=== PATIENT | male | born 1970 | race Caucasian/White ===

== ENCOUNTER 2018-01-15 09:37 | Emergency (ER) | payer SELFPAY ==
[2018-01-15] MEDS ORDERED: KETOROLAC TROMETHAMINE 60 MG/2 ML VIAL ONE (09:53)
[2018-01-15] MEDS ORDERED: ACETAMINOPHEN EXTRA STRENGTH 500 MG TABLET ONE (09:54)
== END 2018-01-15 11:12 | disposition home or self-care (01) ==
LOC: EDH 09:37
DX: S52.502A Unspecified fracture of the lower end of left radius, initial encounter for closed fracture (principal); Z72.0 Tobacco use; W18.39XA Other fall on same level, initial encounter; Y93.89 Activity, other specified; Y92.89 Other specified places as the place of occurrence of the external cause; Y99.8 Other external cause status
CPT/HCPCS: 29125; 73110; 96372; 99284; J1885

== ENCOUNTER 2019-01-08 08:13 | Inpatient (IN) | payer OTHER ==
[~2019-01-08] VITALS: Ht 175.3 cm; Wt 95.2 kg
[2019-01-08] VITALS (19 sets, daily range): BP systolic 85–160; BP diastolic 47–99
[2019-01-08] MEDS ORDERED: ASPIRIN 325 MG TABLET ONE (08:26)
[2019-01-08] MEDS ORDERED: HEPARIN SODIUM 5000UNIT/ML 1ML VIAL ONE (08:38)
[2019-01-08] MEDS ORDERED: LIDOCAINE HCL 2% 20ML ONE (08:39)
[2019-01-08] MEDS ORDERED: ATROPINE SULFATE 0.1 MG/ML 10 ML SYG IVP ONE (08:39)
[2019-01-08] MEDS ORDERED: HEPARIN SODIUM 1000UNIT/ML 10ML VIAL ONE (08:39)
[2019-01-08] MEDS ORDERED: IOHEXOL 350 MG/ML 100ML INFUS..BTL IV ONE (08:39)
[2019-01-08] MEDS ORDERED: NITROGLYCERIN 5 MG/ML 10 ML VIAL IV ONE (08:39)
[2019-01-08 08:45] LABS: POTASSIUM 3.7 mmol/L (3.5-5.1)
[2019-01-08 08:51] LABS: BASOPHILS % (AUTO) 2.2 % (0.0-5.0); HEMATOCRIT 46.6 % (42-54); LYMPHOCYTES % (AUTO) 24.7 % (21.0-51.0); MEAN CORPUSCULAR HEMOGLOBIN 31.5 pg (27.0-33.0); MEAN CORPUSCULAR HGB CONC 33.6 g/dL (32.0-36.0); MEAN CORPUSCULAR VOLUME 93.7 fL (79-99); MONOCYTES % (AUTO) 4.9 % (3.0-13.0); NEUTROPHILS % (AUTO) 66.2 % (40.0-77.0); PLATELET COUNT (AUTO) 242 K/uL (130-400); RED BLOOD CELL COUNT(AUTO) 4.97 MIL/uL (4.50-6.20); RED CELL DISTRIBUTION WIDTH 14.9 % (11.0-15.5); WHITE BLOOD COUNT (AUTO) 14.2 K/uL (4.8-10.8)
[2019-01-08 08:53] LABS: INR 0.95 (0.85-1.15); PARTIAL THROMBOPLASTIN TIME 23.8 SEC (26.3-35.5)
[2019-01-08 08:57] LABS: ALBUMIN 3.5 g/dL (3.5-5.0); BILIRUBIN,TOTAL 0.5 mg/dL (0.2-1.0); TOTAL PROTEIN, SERUM 7.3 g/dL (6.0-8.3)
[2019-01-08] MEDS ORDERED: FENTANYL CITRATE PF 50 MCG/1 ML 2ML VIAL ONE (08:57)
[2019-01-08] MEDS ORDERED: MIDAZOLAM HCL 1 MG/ML 2ML VIAL ONE (08:57)
[2019-01-08] MEDS ORDERED: TICAGRELOR 90 MG TABLET ONE (08:57)
[2019-01-08] MEDS ORDERED: ACETAMINOPHEN 325 MG TAB PO PRN ×2 (09:15)
[2019-01-08] MEDS ORDERED: ONDANSETRON HCL 4 MG/2 ML VIAL IV PRN (09:15)
[2019-01-08] MEDS ORDERED: MORPHINE SULFATE 2 MG/ML 1ML SYG IV PRN (09:15)
[2019-01-08] MEDS ORDERED: NICARDIPINE HCL 25 MG/10 ML ML IV ONE (09:21)
--- NOTE | 2019-01-08 10:40 | NUR ---
RECEIVED PT FROM [facility]. PT AAO X3. NO NEURO DEFICIT NOTED. DENIES ANY CHEST PAIN OR SOB. MYNX DRESSING TO RIGHT GROIN INTACT. PEDAL PULSES STRONG AND PALPABLE. VS NOTED ON COMPUTER. PT SR 61 ON BEDSIDE MONITOR. PLAN OF CARE AND ACTIVITY LIMITATIONS DISCUSSED WITH PT. ALL QUESTIONS ANSWERED.
--- NOTE | 2019-01-08 12:00 | NUR ---
DR. DAVIS IN TO SEE PT. PLAN OF CARE DISCUSSED. NEW ORDERS RECEIVED AND NOTED.
--- NOTE | 2019-01-08 14:00 | NUR ---
OLEGARIO JACQUES NOTIFIED OF CONSULT
[2019-01-08] MEDS: SODIUM CHLORIDE 0.9% 1000ML 1,000 ML IV SCH (15:09)
--- NOTE | 2019-01-08 16:10 | NUR ---
PT COMPLAINING OF CHEST PAIN RADIATING TO BACK 1 OUT 10., PT STATES HE OCCASIONALLY FEELS LIKE HIS HEART SKIPS A BEAT AND SOB. [address]PLE[address] AND [address] SILVER NOTIFIED.
[2019-01-08 19:45] LABS: AMPHET/METH SCREEN,URINE NEGATIVE (NEGATIVE); BARBITURATE SCREEN, URINE NEGATIVE (NEGATIVE); BENZODIAZEPINES SCREEN,URINE POSITIVE (NEGATIVE); CANNABINOID SCREEN,URINE NEGATIVE (NEGATIVE); COCAINE SCREEN,URINE NEGATIVE (NEGATIVE); OPIATE SCREEN,URINE NEGATIVE (NEGATIVE); PHENCYCLIDINE SCREEN,URINE NEGATIVE (NEGATIVE)
[2019-01-08] MEDS ORDERED: PHARMACY COMMUNICATION MISC SCH (20:15)
[2019-01-08] MEDS: TICAGRELOR 90 MG TABLET PO SCH (20:36)
[2019-01-08] MEDS: ATORVASTATIN CALCIUM 40 MG TABLET PO SCH (20:36)
[2019-01-08] MEDS: METOPROLOL TARTRATE 25 MG TAB PO SCH (20:37)
[2019-01-08] MEDS: FAMOTIDINE 20MG TAB 20 MG TAB PO SCH (20:37)
[2019-01-09] VITALS (17 sets, daily range): BP systolic 98–152; BP diastolic 55–101
[2019-01-09] MEDS: SODIUM CHLORIDE 0.9% 1000ML 1,000 ML IV SCH ×2 (04:05→05:00)
[2019-01-09 04:11] LABS: BASOPHILS % (AUTO) 0.6 % (0.0-5.0); EOSINOPHILS % (AUTO) 0.6 % (0.0-8.0); HEMATOCRIT 41.5 % (42-54); LYMPHOCYTES % (AUTO) 11.1 % (21.0-51.0); MEAN CORPUSCULAR HEMOGLOBIN 32.1 pg (27.0-33.0); MEAN CORPUSCULAR VOLUME 94.2 fL (79-99); MONOCYTES % (AUTO) 3.6 % (3.0-13.0); NEUTROPHILS % (AUTO) 84.1 % (40.0-77.0); PLATELET COUNT (AUTO) 189 K/uL (130-400); RED BLOOD CELL COUNT(AUTO) 4.41 MIL/uL (4.50-6.20); RED CELL DISTRIBUTION WIDTH 15.1 % (11.0-15.5); WHITE BLOOD COUNT (AUTO) 16.4 K/uL (4.8-10.8)
[2019-01-09 04:28] LABS: POTASSIUM 4.2 mmol/L (3.5-5.1)
[2019-01-09] MEDS: TICAGRELOR 90 MG TABLET PO SCH ×2 (09:03→20:48)
[2019-01-09] MEDS: FAMOTIDINE 20MG TAB 20 MG TAB PO SCH ×2 (09:03→20:49)
[2019-01-09] MEDS: METOPROLOL TARTRATE 25 MG TAB PO SCH ×2 (09:04→20:50)
[2019-01-09] MEDS: ASPIRIN 81MG TAB.CHEW PO SCH (09:04)
--- NOTE | 2019-01-09 14:46 | NUR ---
DC PLAN VISITED WITH PATIENT. PATIENT LIVES WITH MOTHER. INDEPENDENT ABLE TO PERFORM ADL'S. ASKED IF HE WANTED INFO FOR LOW INCOME CLINICS SAID NO. HE WILL BE GOING TO [facility] SINCE ITS HIS HEART THAT IS GIVING HIM PROBLEMS. SAYS HE DOES NOT HAVE PROBLEMS GETTING HIS MEDICATIONS. NO SERVICES OR DME'S. FEELS SAFE TO RETURN HOME. Addendum: 01/09/19 at 1448 by RADHA BEAULIEU RN CM Amended: Links added.
--- NOTE | 2019-01-09 15:23 | NUR ---
ROUNDS DR. HANDY IN TO SEE PATIENT. UPDATED ON STATUS. PENDING FOR PATIENT TO BE EVALUATED BY CARDIOLOGY. PT HAS BEEN DOWNGRADED TO PCCU. [facility] NURSE MADE AWARE.
[2019-01-09] MEDS: ENOXAPARIN SODIUM 30 MG/0.3 ML SQ SCH (19:20)
[2019-01-09] MEDS: ATORVASTATIN CALCIUM 40 MG TABLET PO SCH (20:48)
[2019-01-09] MEDS: LISINOPRIL 2.5 MG TABLET PO SCH (20:49)
[2019-01-10] VITALS: BP 107/71
[2019-01-10 04:00] VITALS: BP 110/74
--- NOTE | 2019-01-10 05:00 | NUR ---
TRANSFER PATIENT TRANSFERRED FROM ROOM 218 TO 220. PATIENT AMBULATED TO ROOM WITH STANDBY ASSISTANCE. DENIES PAIN. AAOX3 BREATHING REGULAR AND UNLABORED ON ROOM AIR. REPORT GIVEN TO KIRILL FLOWER. CARE ENDORSED.
--- NOTE | 2019-01-10 05:10 | NUR ---
PT TRANSFERRED AT THIS TIME. AAOX3. PERRLA. NO DISTRESS NOTED. NO PAIN OR SOB AT THIS TIME. PT EAGER TO BE DISCHARGED HOME. HAD [facility] 01/08. SITE OPEN TO AIR. PT HAS CLEANSED AREA.
[2019-01-10] MEDS: SODIUM CHLORIDE 0.9% 1000ML 1,000 ML IV SCH (06:45)
[2019-01-10 07:00] VITALS: BP 110/72
[2019-01-10] MEDS: FAMOTIDINE 20MG TAB 20 MG TAB PO SCH (08:31)
[2019-01-10] MEDS: LISINOPRIL 2.5 MG TABLET PO SCH (08:31)
[2019-01-10] MEDS: TICAGRELOR 90 MG TABLET PO SCH (08:31)
[2019-01-10] MEDS: ENOXAPARIN SODIUM 30 MG/0.3 ML SQ SCH (08:32)
[2019-01-10] MEDS: METOPROLOL TARTRATE 25 MG TAB PO SCH (08:32)
[2019-01-10] MEDS: ASPIRIN 81MG TAB.CHEW PO SCH (08:32)
[2019-01-10] MEDS ORDERED: LISI2.5T2 PO (09:22)
[2019-01-10] MEDS ORDERED: METO25 PO (09:22)
[2019-01-10] MEDS ORDERED: ASPI-1005 PO (09:22)
[2019-01-10] MEDS ORDERED: FAMO20TA8 PO (09:22)
[2019-01-10] MEDS ORDERED: ATOR40TA69 PO (09:22)
[2019-01-10] MEDS ORDERED: TICA90TA PO (09:22)
[2019-01-10 11:00] VITALS: BP 107/79
== END 2019-01-10 11:49 | disposition home or self-care (01) | DRG 247 ==
LOC: EDH 08:13 → EDHIP 08:14 → 2CH 10:40 → 2DH 01-10 04:53
PROVIDERS: ADMIT Family Medicine; ATTEND Family Medicine
PROC: 027034Z Dilation of Coronary Artery, One Artery with Drug-eluting Intraluminal Device, Percutaneous Approach (ICD-10-PCS; principal; 2019-01-08)
PROC: 4A023N7 Measurement of Cardiac Sampling and Pressure, Left Heart, Percutaneous Approach (ICD-10-PCS; 2019-01-08)
PROC: B2111ZZ Fluoroscopy of Multiple Coronary Arteries using Low Osmolar Contrast (ICD-10-PCS; 2019-01-08)
DX: I21.19 ST elevation (STEMI) myocardial infarction involving other coronary artery of inferior wall (principal); E66.9 Obesity, unspecified; I25.10 Atherosclerotic heart disease of native coronary artery without angina pectoris; Z68.34 Body mass index [BMI] 34.0-34.9, adult; F17.210 Nicotine dependence, cigarettes, uncomplicated; Z71.6 Tobacco abuse counseling; Z82.49 Family history of ischemic heart disease and other diseases of the circulatory system; Z82.3 Family history of stroke; Z80.1 Family history of malignant neoplasm of trachea, bronchus and lung
CPT/HCPCS: 36415; 71045; 80048; 80053; 80061; 80305; 82550; 83874; 83880; 84484; 85025; 85610; 85730; 93005; 93458; 99156; 99157; 99291; C1725; C1769; C1887; C1894; C9600; G0378; J0461; J1644; J1650; J2250; J3010; J3490; Q9967

== ENCOUNTER 2021-03-29 17:37 | Emergency (ER) | payer OTHER ==
[~2021-03-29] VITALS: Ht 175.3 cm; Wt 116.6 kg
[~2021-03-29 17:37] MED LIST: ASPI-1005 PO; ATOR40TA69 PO; FAMO20TA8 PO; LISI2.5T13 PO; METO25 PO; TICA90TA PO
[2021-03-29] MEDS ORDERED: CYCLOBENZAPRINE HCL 10 MG TABLET PO ONE (18:30)
[2021-03-29] MEDS ORDERED: KETOROLAC 60 MG VIAL (30MG/ML) IM ONE (18:30)
[2021-03-29] MEDS ORDERED: CYCL10TA16 PO (19:30)
[2021-03-29] MEDS ORDERED: ALBU8.5H8 IH (19:30)
[2021-03-29] MEDS ORDERED: NAPR-1180 PO (19:30)
[2021-03-29 19:33] VITALS: BP 134/98
== END 2021-03-29 19:41 | disposition home or self-care (01) ==
LOC: EDH 17:37
DX: M94.0 Chondrocostal junction syndrome [Tietze] (principal); E78.00 Pure hypercholesterolemia, unspecified; I10 Essential (primary) hypertension; Z71.6 Tobacco abuse counseling; F17.200 Nicotine dependence, unspecified, uncomplicated; Z79.1 Long term (current) use of non-steroidal anti-inflammatories (NSAID); Z79.82 Long term (current) use of aspirin; Z79.899 Other long term (current) drug therapy
CPT/HCPCS: 71101; 96372; 99283; J1885

== ENCOUNTER 2021-04-26 23:51 | Emergency (ER) | payer SELFPAY ==
[~2021-04-26] VITALS: Ht 175.3 cm; Wt 133.8 kg
[~2021-04-26 23:51] MED LIST changes: +ALBU8.5H8 IH; +CYCL10TA16 PO; +NAPR-1180 PO
[2021-04-27 00:49] LABS: BASOPHILS % (AUTO) 0.3 % (0.0-5.0); HEMATOCRIT 47.9 % (42-54); LYMPHOCYTES % (AUTO) 15.1 % (21.0-51.0); MEAN CORPUSCULAR HEMOGLOBIN 30.4 pg (27.0-33.0); MEAN CORPUSCULAR HGB CONC 31.9 g/dL (32.0-36.0); MEAN CORPUSCULAR VOLUME 95.2 fL (79-99); MONOCYTES % (AUTO) 3.9 % (3.0-13.0); NEUTROPHILS % (AUTO) 78.3 % (40.0-77.0); PLATELET COUNT (AUTO) 235 K/uL (130-400); RED BLOOD CELL COUNT(AUTO) 5.03 MIL/uL (4.50-6.20); RED CELL DISTRIBUTION WIDTH 14.7 % (11.0-15.5); WHITE BLOOD COUNT (AUTO) 13.5 K/uL (4.8-10.8)
[2021-04-27 00:50] LABS: APPEARANCE,URINE Clear (CLEAR); BILIRUBIN,URINE Negative (NEGATIVE); COLOR,URINE Yellow (YELLOW); GLUCOSE, URINE (UA) Negative (NEGATIVE); KETONES,URINE Negative (NEGATIVE); LEUKOCYTE ESTERASE ,URINE Negative (NEGATIVE); NITRATE,URINE Negative (NEGATIVE); OCCULT BLOOD,URINE Negative (NEGATIVE); PROTEIN,URINE Negative (NEGATIVE)
[2021-04-27 00:51] LABS: CREATININE 0.9 mg/dL (0.5-1.5); POTASSIUM 3.6 mmol/L (3.5-5.1)
[2021-04-27 00:56] LABS: ALBUMIN 3.7 g/dL (3.5-5.0); BILIRUBIN,TOTAL 0.5 mg/dL (0.2-1.0)
[2021-04-27] MEDS ORDERED: MORPHINE 4 MG SYG ONE (01:55)
[2021-04-27] MEDS ORDERED: ONDANSETRON 4MG INJ ONE (01:55)
[2021-04-27] MEDS ORDERED: MORPHINE 4 MG SYG IV ONE ×2 (02:00→05:30)
[2021-04-27] MEDS ORDERED: MORPHINE 4 MG SYG IM PRN (02:00)
[2021-04-27] MEDS ORDERED: ONDANSETRON 4MG INJ IVP ONE (02:00)
[2021-04-27 04:33] VITALS: BP 130/84
== END 2021-04-27 05:25 | disposition home or self-care (01) ==
LOC: EDH 23:51
DX: S22.32XA Fracture of one rib, left side, initial encounter for closed fracture (principal); E78.00 Pure hypercholesterolemia, unspecified; I10 Essential (primary) hypertension; I25.10 Atherosclerotic heart disease of native coronary artery without angina pectoris; F17.200 Nicotine dependence, unspecified, uncomplicated; Z79.1 Long term (current) use of non-steroidal anti-inflammatories (NSAID); Z79.82 Long term (current) use of aspirin; Z79.899 Other long term (current) drug therapy; X58.XXXA Exposure to other specified factors, initial encounter; Y93.89 Activity, other specified; Y92.89 Other specified places as the place of occurrence of the external cause; Y99.8 Other external cause status
CPT/HCPCS: 36415; 71045; 80053; 81003; 84484 ×2; 85025; 93005; 96374; 96375; 96376; 99285; J2270 ×2; J2405

== ENCOUNTER 2021-05-16 15:28 | Emergency (ER) | payer SELFPAY ==
[~2021-05-16] VITALS: Ht 162.6 cm; Wt 113.9 kg
[2021-05-16] MEDS ORDERED: ALBUTEROL INHALER 90MCG/INH IH PRN (16:00)
[2021-05-16] MEDS ORDERED: KETOROLAC 60 MG VIAL (30MG/ML) IM ONE (16:00)
[2021-05-16] MEDS ORDERED: GUAIFENESIN-CODEINE 5 ML SYRUP PO ONE (16:00)
[2021-05-16] MEDS ORDERED: CYCLOBENZAPRINE HCL 10 MG TABLET PO ONE (16:00)
[2021-05-16] MEDS ORDERED: AMOX/CLAV 875/125MG TAB PO ONE (16:30)
[2021-05-16] MEDS ORDERED: AMOX-429 PO (16:33)
[2021-05-16] MEDS ORDERED: FLUT1DIS IH (16:34)
[2021-05-16] MEDS ORDERED: CYCL10TA16 PO (16:34)
[2021-05-16] MEDS ORDERED: ALBU8.5H8 IH (16:34)
[2021-05-16] MEDS ORDERED: BENZ-39 PO (16:34)
[2021-05-16 16:42] VITALS: BP 162/98
== END 2021-05-16 16:49 | disposition home or self-care (01) ==
LOC: EDH 15:28
DX: J40 Bronchitis, not specified as acute or chronic (principal); M94.0 Chondrocostal junction syndrome [Tietze]; I10 Essential (primary) hypertension; I25.10 Atherosclerotic heart disease of native coronary artery without angina pectoris; E66.9 Obesity, unspecified; E78.00 Pure hypercholesterolemia, unspecified; Z71.6 Tobacco abuse counseling; F17.200 Nicotine dependence, unspecified, uncomplicated; Z79.1 Long term (current) use of non-steroidal anti-inflammatories (NSAID); Z79.51 Long term (current) use of inhaled steroids; Z79.82 Long term (current) use of aspirin; Z79.899 Other long term (current) drug therapy; Z85.528 Personal history of other malignant neoplasm of kidney; Z68.41 Body mass index [BMI] 40.0-44.9, adult
CPT/HCPCS: 71045; 96372; 99284; J1885

== ENCOUNTER 2022-01-11 14:10 | Inpatient (IN) | payer BC, MEDICAID ==
[~2022-01-11] VITALS: Ht 175.3 cm; Wt 115.8 kg
[~2022-01-11 14:10] MED LIST changes: +AMOX-429 PO; +BENZ-39 PO; +FLUT1DIS IH
[2022-01-11 14:41] LABS: BASOPHILS % (AUTO) 0.5 % (0.0-5.0); EOSINOPHILS % (AUTO) 3.9 % (0.0-8.0); HEMATOCRIT 47.8 % (42-54); MEAN CORPUSCULAR HEMOGLOBIN 27.3 pg (27.0-33.0); MEAN CORPUSCULAR HGB CONC 31.2 g/dL (32.0-36.0); MEAN CORPUSCULAR VOLUME 87.7 fL (79-99); MONOCYTES % (AUTO) 7.7 % (3.0-13.0); NEUTROPHILS % (AUTO) 70.6 % (40.0-77.0); PLATELET COUNT (AUTO) 227 K/uL (130-400); RED BLOOD CELL COUNT(AUTO) 5.45 MIL/uL (4.50-6.20); RED CELL DISTRIBUTION WIDTH 18.2 % (11.0-15.5); WHITE BLOOD COUNT (AUTO) 11.7 K/uL (4.8-10.8)
[2022-01-11 14:50] LABS: CREATININE 2.2 mg/dL (0.5-1.5)
[2022-01-11 15:00] LABS: ALBUMIN 3.2 g/dL (3.5-5.0); TOTAL PROTEIN, SERUM 6.6 g/dL (6.0-8.3)
[2022-01-11] MEDS ORDERED: 0.9%NACL 1000ML 1,000 ML IV SCH ×4 (16:30→20:30)
[2022-01-11 18:43] LABS: AMPHET/METH SCREEN,URINE NEGATIVE (NEGATIVE); BARBITURATE SCREEN, URINE NEGATIVE (NEGATIVE); BENZODIAZEPINES SCREEN,URINE NEGATIVE (NEGATIVE); CANNABINOID SCREEN,URINE NEGATIVE (NEGATIVE); COCAINE SCREEN,URINE NEGATIVE (NEGATIVE); PHENCYCLIDINE SCREEN,URINE NEGATIVE (NEGATIVE)
[2022-01-11 19:43] LABS: APPEARANCE,URINE CLEAR (CLEAR); BILIRUBIN,URINE NEGATIVE (NEGATIVE); COLOR,URINE DARK-YELLOW (YELLOW); GLUCOSE, URINE (UA) NEGATIVE (NEGATIVE); KETONES,URINE 5 mg/dL (NEGATIVE); LEUKOCYTE ESTERASE ,URINE 25 Leu/uL (NEGATIVE); NITRATE,URINE NEGATIVE (NEGATIVE); OCCULT BLOOD,URINE NEGATIVE (NEGATIVE); PH,URINE 5.5 (5.0-8.0); PROTEIN,URINE 20 mg/dL (NEGATIVE); UROBILINOGEN,URINE 3 mg/dL (0.2-1.0)
[2022-01-11 19:46] LABS: BACTERIA,URINE RARE /HPF (None Seen); MUCUS,URINE RARE LPF (None Seen); SQUAMOUS EPITHELIAL CELL,UR RARE /HPF (0-2)
[2022-01-11] MEDS ORDERED: HYDROCODONE/ACETAMINOPHEN 5/325 MG TAB PO PRN ×2 (20:30)
[2022-01-11] MEDS ORDERED: ONDANSETRON 4MG INJ IV PRN (20:30)
[2022-01-11] MEDS ORDERED: NITROGLYCERIN 0.4 MG SL TAB SL PRN (20:30)
[2022-01-11] MEDS ORDERED: ACETAMINOPHEN 325 MG TAB PO PRN ×2 (20:30)
[2022-01-11] MEDS ORDERED: FAMOTIDINE 20MG TAB PO SCH (21:00)
[2022-01-11] MEDS: 0.9%NACL 1000ML 1,000 ML IV SCH (21:12)
[2022-01-12] MEDS: 0.9%NACL 1000ML 1,000 ML IV SCH ×3 (05:00→21:00)
[2022-01-12 06:48] LABS: BASOPHILS % (AUTO) 0.6 % (0.0-5.0); EOSINOPHILS % (AUTO) 4.6 % (0.0-8.0); HEMATOCRIT 47.1 % (42-54); LYMPHOCYTES % (AUTO) 18.8 % (21.0-51.0); MEAN CORPUSCULAR HEMOGLOBIN 27.3 pg (27.0-33.0); MEAN CORPUSCULAR VOLUME 88.2 fL (79-99); MONOCYTES % (AUTO) 8.4 % (3.0-13.0); NEUTROPHILS % (AUTO) 67.3 % (40.0-77.0); PLATELET COUNT (AUTO) 215 K/uL (130-400); RED BLOOD CELL COUNT(AUTO) 5.34 MIL/uL (4.50-6.20); RED CELL DISTRIBUTION WIDTH 17.5 % (11.0-15.5); WHITE BLOOD COUNT (AUTO) 9.7 K/uL (4.8-10.8)
[2022-01-12 07:01] LABS: ALBUMIN 2.9 g/dL (3.5-5.0); CREATININE 1.6 mg/dL (0.5-1.5); PHOSPHORUS 3.6 mg/dL (2.5-4.9); POTASSIUM 4.5 mmol/L (3.5-5.1); TOTAL PROTEIN, SERUM 6.5 g/dL (6.0-8.3)
[2022-01-12] MEDS ORDERED: ENOXAPARIN SODIUM 40 MG/0.4 ML SYRINGE SQ SCH (09:00)
[2022-01-12 11:54] VITALS: BP 69/41
[2022-01-12 16:00] VITALS: BP 89/50
[2022-01-12 20:00] VITALS: BP 100/54
[2022-01-13] VITALS: BP 136/76
[2022-01-13] MEDS: HYDROMORPHONE 0.5 MG SYG (0.5MG/0.5ML) IVP PRN ×2 (03:59→08:39)
[2022-01-13 04:00] VITALS: BP 104/61
[2022-01-13] MEDS: 0.9%NACL 1000ML 1,000 ML IV SCH (05:00)
[2022-01-13 08:00] VITALS: BP 107/55
== END 2022-01-13 10:41 | disposition home or self-care (01) | DRG 469 ==
LOC: EDH 14:10 → EDHIP 14:11 → UNDOADMIN 14:11 → EDHIP 20:44 → 3AH 01-12 07:50
PROVIDERS: ADMIT Internal Medicine; ATTEND Internal Medicine
DX: N17.9 Acute kidney failure, unspecified (principal); C79.51 Secondary malignant neoplasm of bone; D72.829 Elevated white blood cell count, unspecified; E86.0 Dehydration; E78.00 Pure hypercholesterolemia, unspecified; Z20.822 Contact with and (suspected) exposure to COVID-19; J44.9 Chronic obstructive pulmonary disease, unspecified; I12.9 Hypertensive chronic kidney disease with stage 1 through stage 4 chronic kidney disease, or unspecified chronic kidney disease; I25.10 Atherosclerotic heart disease of native coronary artery without angina pectoris; N18.9 Chronic kidney disease, unspecified; Z82.3 Family history of stroke; Z82.49 Family history of ischemic heart disease and other diseases of the circulatory system; Z91.19 Patient's noncompliance with other medical treatment and regimen; Z85.528 Personal history of other malignant neoplasm of kidney
CPT/HCPCS: 36415; 71045; 71250; 74176; 76770; 80053; 80305; 81001; 82550; 83874; 84100; 84484; 85025; 87635; 87804; 93005; 94760; C9803; G0378; J1170; J7030

== ENCOUNTER 2022-07-23 16:03 | Observation (INO) | payer MEDICAID ==
[~2022-07-23] VITALS: Ht 175.3 cm; Wt 102.4 kg
[~2022-07-23 16:03] MED LIST changes: -AMOX-429 PO; -ATOR40TA69 PO; -BENZ-39 PO; -CYCL10TA16 PO; -FAMO20TA8 PO; -LISI2.5T13 PO; -METO25 PO; -NAPR-1180 PO; -TICA90TA PO
[2022-07-23] MEDS ORDERED: 1/2 NS 1000ML 1,000 ML IV SCH (17:00)
[2022-07-23] MEDS ORDERED: 0.9%NACL 50ML IV SCH (17:00)
[2022-07-23 17:19] LABS: BASOPHILS % (AUTO) 0.2 % (0.0-5.0); EOSINOPHILS % (AUTO) 2.9 % (0.0-8.0); HEMATOCRIT 48.8 % (42-54); LYMPHOCYTES % (AUTO) 24.5 % (21.0-51.0); MEAN CORPUSCULAR HEMOGLOBIN 29.9 pg (27.0-33.0); MEAN CORPUSCULAR HGB CONC 31.8 g/dL (32.0-36.0); MEAN CORPUSCULAR VOLUME 94.2 fL (79-99); MONOCYTES % (AUTO) 6.3 % (3.0-13.0); NEUTROPHILS % (AUTO) 65.6 % (40.0-77.0); PLATELET COUNT (AUTO) 169 K/uL (130-400); RED BLOOD CELL COUNT(AUTO) 5.18 MIL/uL (4.50-6.20); RED CELL DISTRIBUTION WIDTH 18.3 % (11.0-15.5); WHITE BLOOD COUNT (AUTO) 8.5 K/uL (4.8-10.8)
[2022-07-23] MEDS: ZOSYN 3.375GM +NS 50ML IVPB SCH (17:25)
[2022-07-23 17:29] LABS: CREATININE 1.2 mg/dL (0.5-1.5); POTASSIUM 4.6 mmol/L (3.5-5.1)
[2022-07-23 17:30] LABS: INR 1.15 (0.85-1.15); PROTHROMBIN TIME 12.4 SEC (9.6-11.6)
[2022-07-23 17:31] LABS: PARTIAL THROMBOPLASTIN TIME 34.5 SEC (26.3-35.5)
[2022-07-23 17:38] LABS: ALBUMIN 3.5 g/dL (3.5-5.0); TOTAL PROTEIN, SERUM 6.9 g/dL (6.0-8.3)
[2022-07-23] MEDS ORDERED: PHARMACY COMMUNICATION MISC SCH (19:00)
[2022-07-23 19:13] LABS: APPEARANCE,URINE CLEAR (CLEAR); BILIRUBIN,URINE NEGATIVE (NEGATIVE); COLOR,URINE YELLOW (YELLOW); GLUCOSE, URINE (UA) NEGATIVE (NEGATIVE); KETONES,URINE NEGATIVE (NEGATIVE); LEUKOCYTE ESTERASE ,URINE NEGATIVE Leu/uL (NEGATIVE); NITRATE,URINE NEGATIVE (NEGATIVE); OCCULT BLOOD,URINE NEGATIVE (NEGATIVE); PH,URINE 6.5 (5.0-8.0); PROTEIN,URINE NEGATIVE (NEGATIVE); UROBILINOGEN,URINE 0.2 mg/dL (0.2-1.0)
[2022-07-23 20:18] VITALS: BP 120/85
[2022-07-23] MEDS ORDERED: HYDR-4068 PO (20:34)
[2022-07-23] MEDS ORDERED: ASPI-1443 PO (20:34)
[2022-07-23] MEDS ORDERED: METO-408 PO (20:34)
[2022-07-23] MEDS ORDERED: ATOR40TA71 PO (20:34)
[2022-07-23] MEDS ORDERED: SACU1TAB PO (20:34)
[2022-07-23] MEDS ORDERED: CETI10TA57 PO (20:34)
[2022-07-23] MEDS ORDERED: NABU-141 PO (20:34)
[2022-07-23] MEDS: HYDROMORPHONE 0.5 MG SYG (0.5MG/0.5ML) IVP PRN (21:17)
[2022-07-23] MEDS ORDERED: BENZOCAINE/MENTH/CETYLPYRD CL 1 EACH LOZENGE MM PRN (21:30)
[2022-07-24 00:13] VITALS: BP 105/47
[2022-07-24] MEDS: ZOSYN 3.375GM +NS 50ML IVPB SCH ×3 (01:13→16:13)
[2022-07-24] MEDS: ONDANSETRON 4MG INJ IVP PRN ×2 (01:13→19:58)
[2022-07-24] MEDS: HYDROMORPHONE 0.5 MG SYG (0.5MG/0.5ML) IVP PRN ×2 (03:44→19:59)
[2022-07-24 03:58] VITALS: BP 134/84
[2022-07-24 05:53] LABS: HEMATOCRIT 48.5 % (42-54); MEAN CORPUSCULAR HEMOGLOBIN 30.1 pg (27.0-33.0); MEAN CORPUSCULAR HGB CONC 31.5 g/dL (32.0-36.0); MEAN CORPUSCULAR VOLUME 95.5 fL (79-99); RED BLOOD CELL COUNT(AUTO) 5.08 MIL/uL (4.50-6.20)
[2022-07-24 06:09] LABS: CREATININE 1.3 mg/dL (0.5-1.5); POTASSIUM 5.1 mmol/L (3.5-5.1)
[2022-07-24 08:00] VITALS: BP 149/82
[2022-07-24 12:00] VITALS: BP 120/74
[2022-07-24] MEDS ORDERED: ASPIRIN 81MG CHEW TAB PO ONE (14:00)
[2022-07-24 16:00] VITALS: BP 110/74
[2022-07-24] MEDS: FUROSEMIDE 20MG VIAL IV SCH (16:13)
[2022-07-24] MEDS ORDERED: MIDODRINE HCL 5 MG TABLET PO PRN (17:30)
[2022-07-24] MEDS ORDERED: METOPROLOL SUCCINATE 25 MG TAB.SR.24H PO ONE (17:30)
[2022-07-24 20:00] VITALS: BP 92/62
[2022-07-24] MEDS ORDERED: ATORVASTATIN 40 MG TABLET PO SCH (21:00)
[2022-07-25] VITALS: BP 93/64
[2022-07-25] MEDS: ZOSYN 3.375GM +NS 50ML IVPB SCH ×2 (00:30→09:05)
[2022-07-25 04:00] VITALS: BP 131/97
[2022-07-25] MEDS: FUROSEMIDE 20MG VIAL IV SCH (04:32)
[2022-07-25 07:30] VITALS: BP 101/57
[2022-07-25] MEDS ORDERED: METOPROLOL SUCCINATE 25 MG TAB.SR.24H PO SCH (09:00)
[2022-07-25] MEDS ORDERED: ASPIRIN 81MG CHEW TAB PO SCH (09:00)
[2022-07-25 11:30] VITALS: BP 89/57
== END 2022-07-25 12:00 | disposition home or self-care (01) ==
LOC: EDH 16:03 → DIRECT 16:04 → 3AH 18:42
PROVIDERS: ADMIT Internal Medicine; ATTEND Internal Medicine
DX: K42.0 Umbilical hernia with obstruction, without gangrene (principal); Z20.822 Contact with and (suspected) exposure to COVID-19; I11.0 Hypertensive heart disease with heart failure; I50.23 Acute on chronic systolic (congestive) heart failure; I42.0 Dilated cardiomyopathy; K81.0 Acute cholecystitis; J44.9 Chronic obstructive pulmonary disease, unspecified; C79.51 Secondary malignant neoplasm of bone; I25.10 Atherosclerotic heart disease of native coronary artery without angina pectoris; I25.2 Old myocardial infarction; I34.0 Nonrheumatic mitral (valve) insufficiency; I48.0 Paroxysmal atrial fibrillation; I49.3 Ventricular premature depolarization; I63.9 Cerebral infarction, unspecified; J96.11 Chronic respiratory failure with hypoxia; K43.6 Other and unspecified ventral hernia with obstruction, without gangrene; M84.40XA Pathological fracture, unspecified site, initial encounter for fracture; Z72.0 Tobacco use; Z85.528 Personal history of other malignant neoplasm of kidney; Z91.199 Patient's noncompliance with other medical treatment and regimen due to unspecified reason; Z95.5 Presence of coronary angioplasty implant and graft; Z79.899 Other long term (current) drug therapy; Z98.890 Other specified postprocedural states
CPT/HCPCS: 96365; 96366 ×3; 96375 ×2; 82550; 83874; 84484; 80053; 83880; 85025; 85610; 85730; 81003; 36415 ×2; 71046; 74176; 93005; 96376 ×2; 80048; 85027; 87635; 93306; 93356; G0378 ×41; J2543 ×6; J1170 ×3; J2405 ×2; J1940 ×2

== ENCOUNTER 2022-08-18 12:57 | Observation (INO) | payer MEDICAID ==
[~2022-08-18] VITALS: Ht 175.3 cm; Wt 103.4 kg
[~2022-08-18 12:57] MED LIST changes: +ASPI-1443 PO; +ATOR40TA71 PO; +CETI10TA57 PO; +HYDR-4068 PO; +METO-408 PO; +NABU-141 PO; +SACU1TAB PO
[2022-08-18 14:07] LABS: BASOPHILS % (AUTO) 0.4 % (0.0-5.0); EOSINOPHILS % (AUTO) 1.1 % (0.0-8.0); HEMATOCRIT 46.7 % (42-54); LYMPHOCYTES % (AUTO) 24.5 % (21.0-51.0); MEAN CORPUSCULAR HEMOGLOBIN 31.2 pg (27.0-33.0); MEAN CORPUSCULAR HGB CONC 32.3 g/dL (32.0-36.0); MEAN CORPUSCULAR VOLUME 96.5 fL (79-99); MONOCYTES % (AUTO) 5.3 % (3.0-13.0); NEUTROPHILS % (AUTO) 68.4 % (40.0-77.0); PLATELET COUNT (AUTO) 100 K/uL (130-400); RED BLOOD CELL COUNT(AUTO) 4.84 MIL/uL (4.50-6.20); RED CELL DISTRIBUTION WIDTH 18.6 % (11.0-15.5); WHITE BLOOD COUNT (AUTO) 10.4 K/uL (4.8-10.8)
[2022-08-18 15:02] LABS: CREATININE 1.1 mg/dL (0.5-1.5); POTASSIUM 5.6 mmol/L (3.5-5.1)
[2022-08-18 15:07] LABS: ALBUMIN 3.9 g/dL (3.5-5.0); TOTAL PROTEIN, SERUM 6.5 g/dL (6.0-8.3)
[2022-08-18] MEDS ORDERED: SOLU-MEDROL 125MG VIAL IVP ONE (15:30)
[2022-08-18] MEDS ORDERED: ASPIRIN 81MG CHEW TAB PO ONE (15:30)
[2022-08-18] MEDS ORDERED: FUROSEMIDE 40MG VIAL IV ONE (15:30)
[2022-08-18] MEDS ORDERED: IOHEXOL-350 75 ML VIAL IV ONE (16:22)
[2022-08-18] MEDS ORDERED: IPRATROPIUM/ALBUTEROL SULFATE 3 ML SOLUTION IH ONE ×2 (16:24→16:30)
[2022-08-18] MEDS ORDERED: NITROGLYCERIN 1GM OINT 1 INCH/1GM TD ONE (16:30)
[2022-08-18] MEDS ORDERED: MAG/ALUM/SIMETH 30 ML UDCUP PO ONE (17:00)
[2022-08-18] MEDS: IPRATROPIUM/ALBUTEROL SULFATE 3 ML SOLUTION IH PRN (20:23)
[2022-08-18] MEDS ORDERED: FAMOTIDINE 20MG VIAL IV ONE ×2 (21:30→21:47)
[2022-08-19] MEDS ORDERED: FUROSEMIDE 40MG VIAL IV SCH (05:30)
[2022-08-19] MEDS: IPRATROPIUM/ALBUTEROL SULFATE 3 ML SOLUTION IH PRN ×2 (06:40→13:12)
[2022-08-19 07:57] LABS: BASOPHILS % (AUTO) 0.1 % (0.0-5.0); EOSINOPHILS % (AUTO) 0.2 % (0.0-8.0); HEMATOCRIT 47.6 % (42-54); LYMPHOCYTES % (AUTO) 3.5 % (21.0-51.0); MEAN CORPUSCULAR HEMOGLOBIN 30.8 pg (27.0-33.0); MEAN CORPUSCULAR HGB CONC 32.1 g/dL (32.0-36.0); MEAN CORPUSCULAR VOLUME 95.8 fL (79-99); MONOCYTES % (AUTO) 0.8 % (3.0-13.0); NEUTROPHILS % (AUTO) 94.9 % (40.0-77.0); PLATELET COUNT (AUTO) 103 K/uL (130-400); RED BLOOD CELL COUNT(AUTO) 4.97 MIL/uL (4.50-6.20); RED CELL DISTRIBUTION WIDTH 18.3 % (11.0-15.5); WHITE BLOOD COUNT (AUTO) 13.9 K/uL (4.8-10.8)
[2022-08-19 08:07] LABS: ALBUMIN 3.8 g/dL (3.5-5.0); CREATININE 1.1 mg/dL (0.5-1.5); POTASSIUM 4.6 mmol/L (3.5-5.1); TOTAL PROTEIN, SERUM 7.1 g/dL (6.0-8.3)
[2022-08-19] MEDS ORDERED: SOLU-MEDROL 125MG VIAL IVP SCH (09:00)
[2022-08-19] MEDS ORDERED: FAMOTIDINE 20MG VIAL IV SCH (09:00)
[2022-08-19] MEDS ORDERED: ENOXAPARIN SODIUM 40 MG/0.4 ML SYRINGE SQ SCH (09:00)
[2022-08-19 11:20] VITALS: BP 121/91
[2022-08-20] MEDS ORDERED: FUROSEMIDE 40 MG TABLET PO SCH (09:00)
== END 2022-08-19 14:39 | disposition left against medical advice (07) ==
LOC: EDH 12:57 → EDHIP 12:58
PROVIDERS: ADMIT Internal Medicine; ATTEND Internal Medicine
DX: I11.0 Hypertensive heart disease with heart failure (principal); I50.43 Acute on chronic combined systolic (congestive) and diastolic (congestive) heart failure; I25.10 Atherosclerotic heart disease of native coronary artery without angina pectoris; I21.19 ST elevation (STEMI) myocardial infarction involving other coronary artery of inferior wall; I25.5 Ischemic cardiomyopathy; I25.2 Old myocardial infarction; C79.51 Secondary malignant neoplasm of bone; I45.10 Unspecified right bundle-branch block; J44.9 Chronic obstructive pulmonary disease, unspecified; N28.89 Other specified disorders of kidney and ureter; E78.5 Hyperlipidemia, unspecified; F17.200 Nicotine dependence, unspecified, uncomplicated; Z85.528 Personal history of other malignant neoplasm of kidney; Z91.199 Patient's noncompliance with other medical treatment and regimen due to unspecified reason; Z95.5 Presence of coronary angioplasty implant and graft; Z99.81 Dependence on supplemental oxygen; Z79.899 Other long term (current) drug therapy; Z98.890 Other specified postprocedural states; Z79.82 Long term (current) use of aspirin
CPT/HCPCS: 96374; 96375 ×2; 99285; 84484; 80053 ×2; 83880; 85025 ×2; 83605 ×2; 36415 ×2; 71045; 71270; 93005; 94640 ×4; 96376; G0378 ×21; S0028 ×2; J2930 ×2; J1940 ×2; Q9967; J1650; J3490

== ENCOUNTER 2022-08-28 01:54 | Emergency (ER) | payer MEDICAID ==
[~2022-08-28] VITALS: Ht 175.3 cm; Wt 104.3 kg
[2022-08-28] MEDS ORDERED: IPRATROPIUM 0.5 MG/2.5 ML INH IH ONE (02:30)
[2022-08-28] MEDS ORDERED: ASPIRIN 81MG CHEW TAB PO ONE (02:30)
[2022-08-28] MEDS ORDERED: ALBUTEROL 0.083% 2.5 MG/3 ML INH IH ONE (02:30)
[2022-08-28 02:31] LABS: BASOPHILS % (AUTO) 0.2 % (0.0-5.0); HEMATOCRIT 46.5 % (42-54); LYMPHOCYTES % (AUTO) 22.4 % (21.0-51.0); MEAN CORPUSCULAR HEMOGLOBIN 31.3 pg (27.0-33.0); MEAN CORPUSCULAR HGB CONC 32.5 g/dL (32.0-36.0); MEAN CORPUSCULAR VOLUME 96.3 fL (79-99); MONOCYTES % (AUTO) 8.5 % (3.0-13.0); NEUTROPHILS % (AUTO) 67.6 % (40.0-77.0); PLATELET COUNT (AUTO) 186 K/uL (130-400); RED BLOOD CELL COUNT(AUTO) 4.83 MIL/uL (4.50-6.20); RED CELL DISTRIBUTION WIDTH 18.5 % (11.0-15.5)
[2022-08-28 02:46] LABS: CREATININE 1.4 mg/dL (0.5-1.5); POTASSIUM 4.5 mmol/L (3.5-5.1)
[2022-08-28 02:52] LABS: ALBUMIN 3.4 g/dL (3.5-5.0); TOTAL PROTEIN, SERUM 5.5 g/dL (6.0-8.3)
[2022-08-28] MEDS ORDERED: ALBUHFA IH (03:08)
[2022-08-28] MEDS ORDERED: FURO-152 PO (03:08)
[2022-08-28] MEDS ORDERED: AUD IH (03:08)
[2022-08-28] MEDS ORDERED: PRED50TA2 PO (03:08)
[2022-08-28] MEDS ORDERED: SOLU-MEDROL 125MG VIAL IVP ONE (03:30)
[2022-08-28] MEDS ORDERED: FUROSEMIDE 40MG VIAL IV ONE (03:30)
[2022-08-28 04:03] LABS: B-TYPE NATRIURETIC PEPTIDE 1470 pg/mL (0-100)
[2022-08-28 04:05] VITALS: BP 142/86
== END 2022-08-28 04:19 | disposition home or self-care (01) ==
LOC: EDH 01:54
DX: I11.0 Hypertensive heart disease with heart failure (principal); I50.9 Heart failure, unspecified; J44.9 Chronic obstructive pulmonary disease, unspecified; F17.200 Nicotine dependence, unspecified, uncomplicated; Z79.51 Long term (current) use of inhaled steroids; Z79.82 Long term (current) use of aspirin; Z79.899 Other long term (current) drug therapy; Z20.822 Contact with and (suspected) exposure to COVID-19
CPT/HCPCS: 99285; 96374; 71045; 87635; 96375; 84484; 80053; 85025; 87804 ×2; 36415; 93005; 94640; 83880 ×2; C9803; J2930; J1940

== ENCOUNTER 2022-09-05 03:27 | Emergency (ER) | payer MEDICAID ==
[~2022-09-05] VITALS: Ht 175.3 cm; Wt 105.7 kg
[~2022-09-05 03:27] MED LIST changes: +ALBUHFA IH; +AUD IH; +FURO-152 PO; +PRED50TA2 PO
[2022-09-05 04:08] LABS: BASOPHILS % (AUTO) 0.1 % (0.0-5.0); EOSINOPHILS % (AUTO) 0.2 % (0.0-8.0); HEMATOCRIT 44.4 % (42-54); LYMPHOCYTES % (AUTO) 13.8 % (21.0-51.0); MEAN CORPUSCULAR VOLUME 96.9 fL (79-99); MONOCYTES % (AUTO) 4.5 % (3.0-13.0); NEUTROPHILS % (AUTO) 80.5 % (40.0-77.0); PLATELET COUNT (AUTO) 137 K/uL (130-400); RED BLOOD CELL COUNT(AUTO) 4.58 MIL/uL (4.50-6.20); RED CELL DISTRIBUTION WIDTH 19.3 % (11.0-15.5); WHITE BLOOD COUNT (AUTO) 12.3 K/uL (4.8-10.8)
[2022-09-05 04:15] LABS: CREATININE 1.2 mg/dL (0.5-1.5); POTASSIUM 3.5 mmol/L (3.5-5.1)
[2022-09-05 04:19] LABS: ALBUMIN 3.2 g/dL (3.5-5.0); MAGNESIUM 1.7 mg/dL (1.80-2.40); TOTAL PROTEIN, SERUM 5.6 g/dL (6.0-8.3)
[2022-09-05 04:24] LABS: B-TYPE NATRIURETIC PEPTIDE 1700 pg/mL (0-100)
[2022-09-05] MEDS ORDERED: FUROSEMIDE 40MG VIAL IV ONE (04:30)
[2022-09-05 04:51] LABS: INR 1.12 (0.85-1.15); PROTHROMBIN TIME 12.1 SEC (9.6-11.6)
[2022-09-05 04:53] LABS: PARTIAL THROMBOPLASTIN TIME 26.5 SEC (26.3-35.5)
[2022-09-05] MEDS ORDERED: FURO40TA7 PO (05:51)
[2022-09-05] MEDS ORDERED: POTA-81 PO (05:51)
[2022-09-05 05:52] VITALS: BP 125/80
== END 2022-09-05 05:59 | disposition home or self-care (01) ==
LOC: EDH 03:27
DX: I11.0 Hypertensive heart disease with heart failure (principal); I50.9 Heart failure, unspecified; F17.200 Nicotine dependence, unspecified, uncomplicated; I45.10 Unspecified right bundle-branch block; J44.9 Chronic obstructive pulmonary disease, unspecified; Z79.82 Long term (current) use of aspirin; Z79.899 Other long term (current) drug therapy; Z85.528 Personal history of other malignant neoplasm of kidney; Z95.5 Presence of coronary angioplasty implant and graft; Z98.890 Other specified postprocedural states
CPT/HCPCS: 99284; 93970; 96374; 71045; 82550; 83735; 84484; 80053; 83880; 85025; 85378; 85610; 85730; 36415; 93005; J1940

== ENCOUNTER 2023-05-28 10:58 | Day surgery (SDC) | payer MEDICAID ==
[2023-05-25 15:15] LABS: BASOPHILS # (AUTO) 0.04 K/uL (0.00-0.20); BASOPHILS % (AUTO) 0.4 % (0.0-5.0); EOSINOPHILS # (AUTO) 0.07 K/uL (0.00-0.70); EOSINOPHILS % (AUTO) 0.8 % (0.0-8.0); HEMATOCRIT 46.2 % (42-54); IMMATURE GRANULOCYTE ABSOLUTE 0.03 K/uL (0-1); LYMPHOCYTES # (AUTO) 0.5 K/uL (1.0-4.8); LYMPHOCYTES % (AUTO) 5.8 % (21.0-51.0); MEAN CORPUSCULAR HGB CONC 34.2 g/dL (32.0-36.0); MEAN CORPUSCULAR VOLUME 93.5 fL (79-99); MONOCYTES # (AUTO) 0.2 K/uL (0.1-1.0); MONOCYTES % (AUTO) 1.6 % (3.0-13.0); NEUTROPHILS # (AUTO) 8.5 K/uL (1.8-7.7); NEUTROPHILS % (AUTO) 91.1 % (40.0-77.0); PLATELET COUNT (AUTO) 196 K/uL (130-400); RED BLOOD CELL COUNT(AUTO) 4.94 MIL/uL (4.50-6.20); RED CELL DISTRIBUTION WIDTH 12.9 % (11.0-15.5); WHITE BLOOD COUNT (AUTO) 9.3 K/uL (4.8-10.8)
[2023-05-25 15:22] VITALS: BP 141/82; PULSE 81; RESP 18
[2023-05-25 15:28] LABS: INR 0.99 (0.85-1.15); PROTHROMBIN TIME 11.5 SEC (9.6-11.6)
[2023-05-25 15:29] LABS: PARTIAL THROMBOPLASTIN TIME 30.3 SEC (26.3-35.5)
[2023-05-25 15:31] LABS: POTASSIUM 4.6 mmol/L (3.5-5.1)
[2023-05-25 16:20] LABS: PLATELET MORPHOLOGY LARGE PLTS PRESENT
[~2023-05-28] VITALS: Ht 172.7 cm; Wt 98.3 kg
[2023-05-28] VITALS (8 sets, daily range): BP systolic 91–117; BP diastolic 64–86; PULSE 68–98; RESP 16–18
[~2023-05-28 10:58] MED LIST changes: -ALBU8.5H8 IH; -ALBUHFA IH; -ASPI-1005 PO; +ASPI-1197 PO; -ASPI-1443 PO; -AUD IH; +AXIT5TAB PO; -CETI10TA57 PO; +EMPA10TA PO; -FLUT1DIS IH; -FURO-152 PO; -HYDR-4068 PO; +LEVO50CA4 PO; +METO-391 PO; -METO-408 PO; -NABU-141 PO; -PRED50TA2 PO; -SACU1TAB PO; +SACU1TAB4 PO
[2023-05-28] MEDS ORDERED: 0.9%NACL 1000ML 1,000 ML IV ONE (11:05)
[2023-05-28] MEDS ORDERED: LIDOCAINE HCL 1% MDV 50ML VIAL ONE (14:35)
[2023-05-28] MEDS ORDERED: IODIXANOL 320 MG/ML 100 ML VIAL ONE ×2 (14:35→15:38)
[2023-05-28] MEDS ORDERED: MIDAZOLAM HCL 1 MG/ML 2ML VIAL ONE ×2 (14:57→15:26)
[2023-05-28] MEDS ORDERED: FENTANYL CITRATE PF 50 MCG/1 ML 2ML VIAL ONE (14:57)
[2023-05-29] MEDS ORDERED: ACET-2079 PO (02:01)
[2023-05-30] MEDS ORDERED: CETI10TA57 PO (19:49)
[2023-05-30] MEDS ORDERED: NABU-141 PO (19:49)
[2023-05-30] MEDS ORDERED: ONDA-104 PO (19:49)
[2023-05-30] MEDS ORDERED: HYDR-4068 PO (19:49)
[2023-05-30] MEDS ORDERED: PANT40SU PO (19:49)
== END 2023-05-28 18:00 | disposition home or self-care (01) ==
LOC: DAH 10:58
PROVIDERS: ATTEND Internal Medicine Hematology & Oncology
DX: C64.1 Malignant neoplasm of right kidney, except renal pelvis (principal); C79.51 Secondary malignant neoplasm of bone; N28.0 Ischemia and infarction of kidney; I42.9 Cardiomyopathy, unspecified; I10 Essential (primary) hypertension; J44.9 Chronic obstructive pulmonary disease, unspecified; M19.90 Unspecified osteoarthritis, unspecified site; F41.9 Anxiety disorder, unspecified; J01.90 Acute sinusitis, unspecified; F17.210 Nicotine dependence, cigarettes, uncomplicated; J45.998 Other asthma; E78.5 Hyperlipidemia, unspecified; Z79.899 Other long term (current) drug therapy; Z79.01 Long term (current) use of anticoagulants; Z98.890 Other specified postprocedural states; Z83.3 Family history of diabetes mellitus; Z80.1 Family history of malignant neoplasm of trachea, bronchus and lung; Z82.0 Family history of epilepsy and other diseases of the nervous system; Z95.810 Presence of automatic (implantable) cardiac defibrillator
CPT/HCPCS: 80048; 85025; 85610; 85730; 36415; 37243; 82948; 36251; C1769 ×2; C1894 ×2; C1887; C1760; A4663; J7030; J2250; J1644 ×2; J3490 ×3; A4215; A4222; A4221; A4216; A4223 ×3; J3010; Q9967

== ENCOUNTER → 2023-05-29 | Emergency (ER) | payer MEDICAID ==
[~2023-05-29] VITALS: Ht 175.3 cm; Wt 98.4 kg
[~2023-05-29] MED LIST changes: +ACET-2079 PO; +CETI10TA57 PO; +HYDR-4068 PO; +NABU-141 PO; +ONDA-104 PO; +PANT40SU PO
[2023-05-29 00:12] VITALS: BP 137/49; PULSE 68; RESP 18
[2023-05-29] MEDS: KETOROLAC 60 MG VIAL (30MG/ML) IM ONE (01:25)
[2023-05-29 01:50] LABS: APPEARANCE,URINE CLEAR (CLEAR); BILIRUBIN,URINE NEGATIVE (NEGATIVE); COLOR,URINE YELLOW (YELLOW); GLUCOSE, URINE (UA) NEGATIVE (NEGATIVE); KETONES,URINE NEGATIVE (NEGATIVE); LEUKOCYTE ESTERASE ,URINE NEGATIVE Leu/uL (NEGATIVE); NITRATE,URINE NEGATIVE (NEGATIVE); OCCULT BLOOD,URINE NEGATIVE (NEGATIVE); PH,URINE 5.5 (5.0-8.0); PROTEIN,URINE 10 mg/dL (NEGATIVE); UROBILINOGEN,URINE 0.2 mg/dL (0.2-1.0)
[2023-05-29 01:51] LABS: ADD UA MICROSCOPIC YES
[2023-05-29 01:53] LABS: BACTERIA,URINE None Seen /HPF (None Seen); MUCUS,URINE Rare LPF (None Seen); WBC,URINE 0-1 /HPF (0-1)
== END ==
LOC: EDH 00:10
DX: G89.18 Other acute postprocedural pain (principal); I25.10 Atherosclerotic heart disease of native coronary artery without angina pectoris; I11.0 Hypertensive heart disease with heart failure; I50.9 Heart failure, unspecified; J44.9 Chronic obstructive pulmonary disease, unspecified; F17.200 Nicotine dependence, unspecified, uncomplicated; Z79.52 Long term (current) use of systemic steroids; Z79.82 Long term (current) use of aspirin; Z79.84 Long term (current) use of oral hypoglycemic drugs; Z79.899 Other long term (current) drug therapy; Z85.528 Personal history of other malignant neoplasm of kidney; Z95.5 Presence of coronary angioplasty implant and graft
CPT/HCPCS: 99283; 81001; 96372; J1885

== ENCOUNTER 2023-06-13 13:09 | Emergency (ER) | payer MEDICAID ==
[~2023-06-13] VITALS: Ht 172.7 cm; Wt 96.2 kg
[2023-06-13 14:20] VITALS: BP 107/73; PULSE 70; RESP 14; O2SAT 95
[2023-06-13 14:33] LABS: BASOPHILS # (AUTO) 0.04 K/uL (0.00-0.20); BASOPHILS % (AUTO) 0.4 % (0.0-5.0); EOSINOPHILS # (AUTO) 0.23 K/uL (0.00-0.70); EOSINOPHILS % (AUTO) 2.3 % (0.0-8.0); HEMATOCRIT 42.9 % (42-54); IMMATURE GRANULOCYTE ABSOLUTE 0.05 K/uL (0-1); LYMPHOCYTES # (AUTO) 1.7 K/uL (1.0-4.8); LYMPHOCYTES % (AUTO) 17.3 % (21.0-51.0); MEAN CORPUSCULAR HEMOGLOBIN 31.1 pg (27.0-33.0); MEAN CORPUSCULAR HGB CONC 33.6 g/dL (32.0-36.0); MEAN CORPUSCULAR VOLUME 92.7 fL (79-99); MONOCYTES # (AUTO) 0.6 K/uL (0.1-1.0); MONOCYTES % (AUTO) 5.9 % (3.0-13.0); NEUTROPHILS # (AUTO) 7.3 K/uL (1.8-7.7); NEUTROPHILS % (AUTO) 73.6 % (40.0-77.0); PLATELET COUNT (AUTO) 217 K/uL (130-400); RED BLOOD CELL COUNT(AUTO) 4.63 MIL/uL (4.50-6.20); RED CELL DISTRIBUTION WIDTH 13.2 % (11.0-15.5); WHITE BLOOD COUNT (AUTO) 9.9 K/uL (4.8-10.8)
[2023-06-13 14:42] LABS: CREATININE 1.1 mg/dL (0.5-1.5); POTASSIUM 4.6 mmol/L (3.5-5.1)
[2023-06-13] MEDS: LACTATED RINGERS 1000ML 1,000 ML IV ONE (14:50)
[2023-06-13] MEDS: DEXAMETHASONE SOD PHOSPHATE 4 MG/ML 1ML VIAL IV ONE (14:51)
[2023-06-13 14:56] LABS: MAGNESIUM 1.7 mg/dL (1.80-2.40); THYROID STIMULATING HORMONE 3.47 uIU/mL (0.36-3.74)
[2023-06-13] MEDS: MAGNESIUM OXIDE 400 MG TABLET PO ONE (15:58)
== END 2023-06-13 17:07 | disposition home or self-care (01) ==
LOC: EDH 13:09
DX: E83.42 Hypomagnesemia (principal); F17.200 Nicotine dependence, unspecified, uncomplicated; Z79.82 Long term (current) use of aspirin; Z79.899 Other long term (current) drug therapy; Z98.890 Other specified postprocedural states
CPT/HCPCS: 99283; 96374; 96361; 84443; 83735; 80048; 85025; 36415; J1100; J7120

== ENCOUNTER 2023-06-19 09:35 | Emergency (ER) | payer MEDICAID, OTHER ==
[~2023-06-19] VITALS: Ht 172.7 cm; Wt 95.7 kg
[2023-06-19 10:30] LABS: BASOPHILS # (AUTO) 0.02 K/uL (0.00-0.20); BASOPHILS % (AUTO) 0.2 % (0.0-5.0); EOSINOPHILS # (AUTO) 0.24 K/uL (0.00-0.70); EOSINOPHILS % (AUTO) 2.3 % (0.0-8.0); HEMATOCRIT 42.8 % (42-54); IMMATURE GRANULOCYTE ABSOLUTE 0.05 K/uL (0-1); LYMPHOCYTES # (AUTO) 1.6 K/uL (1.0-4.8); LYMPHOCYTES % (AUTO) 14.6 % (21.0-51.0); MEAN CORPUSCULAR HEMOGLOBIN 31.4 pg (27.0-33.0); MEAN CORPUSCULAR HGB CONC 33.2 g/dL (32.0-36.0); MEAN CORPUSCULAR VOLUME 94.7 fL (79-99); MONOCYTES # (AUTO) 0.5 K/uL (0.1-1.0); MONOCYTES % (AUTO) 4.6 % (3.0-13.0); NEUTROPHILS # (AUTO) 8.3 K/uL (1.8-7.7); NEUTROPHILS % (AUTO) 77.8 % (40.0-77.0); PLATELET COUNT (AUTO) 180 K/uL (130-400); RED BLOOD CELL COUNT(AUTO) 4.52 MIL/uL (4.50-6.20); RED CELL DISTRIBUTION WIDTH 13.7 % (11.0-15.5); WHITE BLOOD COUNT (AUTO) 10.6 K/uL (4.8-10.8)
[2023-06-19 10:43] LABS: CREATININE 1.1 mg/dL (0.5-1.5); POTASSIUM 3.8 mmol/L (3.5-5.1)
[2023-06-19 10:48] LABS: ALBUMIN 2.8 g/dL (3.5-5.0); BILIRUBIN,TOTAL 0.5 mg/dL (0.2-1.0); TOTAL PROTEIN, SERUM 6.4 g/dL (6.0-8.3)
[2023-06-19 10:54] LABS: B-TYPE NATRIURETIC PEPTIDE 78 pg/mL (0-100)
[2023-06-19] MEDS: 0.9%NACL 1000ML 1,000 ML IV ONE (13:55)
[2023-06-19] MEDS: DEXAMETHASONE SOD PHOSPHATE 4 MG/ML 1ML VIAL IV ONE (13:55)
[2023-06-19] MEDS ORDERED: 0.9%NACL 1000ML 684 ML IV ONE (14:00)
[2023-06-19 14:50] VITALS: BP 119/70; PULSE 75; RESP 16; O2SAT 98
== END 2023-06-19 15:00 | disposition home or self-care (01) ==
LOC: EDH 09:35
DX: R53.1 Weakness (principal); I11.0 Hypertensive heart disease with heart failure; I50.9 Heart failure, unspecified; J44.9 Chronic obstructive pulmonary disease, unspecified; F17.200 Nicotine dependence, unspecified, uncomplicated; Z79.82 Long term (current) use of aspirin; Z79.899 Other long term (current) drug therapy; Z98.890 Other specified postprocedural states
CPT/HCPCS: 99285; 96374; 71045; 96361; 83735; 84484; 80053; 83880; 85025; 36415; 93005; J1100; J7030

== ENCOUNTER → 2023-09-30 | Outpatient (CLI) | payer MEDICAID | END | disposition home or self-care (01) | LOC: RAH 13:20 | PROVIDERS: ATTEND Internal Medicine | DX: K42.9 Umbilical hernia without obstruction or gangrene (principal); N28.89 Other specified disorders of kidney and ureter; N32.89 Other specified disorders of bladder; M47.815 Spondylosis without myelopathy or radiculopathy, thoracolumbar region; N23 Unspecified renal colic; S22.42XD Multiple fractures of ribs, left side, subsequent encounter for fracture with routine healing; X58.XXXD Exposure to other specified factors, subsequent encounter | CPT/HCPCS: 74176 ==

== ENCOUNTER 2023-11-03 12:35 | Observation (INO) | payer MEDICAID ==
[~2023-11-03] VITALS: Ht 175.3 cm; Wt 88.9 kg
[~2023-11-03 12:35] MED LIST changes: -ASPI-1197 PO; -ATOR40TA71 PO; +CEPH500B PO; +IRON1CAP30 PO; -LEVO50CA4 PO
[2023-11-03] MEDS: 0.9%NACL 1000ML 1,000 ML IV ONE (12:54)
[2023-11-03 13:29] LABS: ALBUMIN 2.5 g/dL (3.5-5.0); BILIRUBIN,TOTAL 0.9 mg/dL (0.2-1.0); POTASSIUM 3.9 mmol/L (3.5-5.1); TOTAL PROTEIN, SERUM 7.3 g/dL (6.0-8.3)
[2023-11-03 13:35] LABS: BASOPHILS # (AUTO) 0.02 K/uL (0.00-0.20); BASOPHILS % (AUTO) 0.3 % (0.0-5.0); EOSINOPHILS # (AUTO) 0.13 K/uL (0.00-0.70); EOSINOPHILS % (AUTO) 1.7 % (0.0-8.0); HEMATOCRIT 30.8 % (42-54); IMMATURE GRANULOCYTE ABSOLUTE 0.06 K/uL (0-1); LYMPHOCYTES # (AUTO) 1.2 K/uL (1.0-4.8); LYMPHOCYTES % (AUTO) 15.9 % (21.0-51.0); MEAN CORPUSCULAR HEMOGLOBIN 27.5 pg (27.0-33.0); MEAN CORPUSCULAR HGB CONC 31.5 g/dL (32.0-36.0); MEAN CORPUSCULAR VOLUME 87.3 fL (79-99); MONOCYTES # (AUTO) 0.5 K/uL (0.1-1.0); MONOCYTES % (AUTO) 6.6 % (3.0-13.0); NEUTROPHILS # (AUTO) 5.7 K/uL (1.8-7.7); NEUTROPHILS % (AUTO) 74.7 % (40.0-77.0); PLATELET COUNT (AUTO) 261 K/uL (130-400); RED BLOOD CELL COUNT(AUTO) 3.53 MIL/uL (4.50-6.20); RED CELL DISTRIBUTION WIDTH 15.9 % (11.0-15.5); WHITE BLOOD COUNT (AUTO) 7.6 K/uL (4.8-10.8)
[2023-11-03 14:20] LABS: ADD UA MICROSCOPIC YES; APPEARANCE,URINE CLEAR (CLEAR); BILIRUBIN,URINE 0.5 mg/dL (NEGATIVE); COLOR,URINE YELLOW (YELLOW); GLUCOSE, URINE (UA) NEGATIVE (NEGATIVE); KETONES,URINE 10 mg/dL (NEGATIVE); LEUKOCYTE ESTERASE ,URINE NEGATIVE Leu/uL (NEGATIVE); NITRATE,URINE NEGATIVE (NEGATIVE); OCCULT BLOOD,URINE NEGATIVE (NEGATIVE); PH,URINE 5.5 (5.0-8.0); PROTEIN,URINE 50 mg/dL (NEGATIVE)
[2023-11-03 14:26] LABS: BACTERIA,URINE RARE /HPF (None Seen); MUCUS,URINE FEW LPF (None Seen); OTHER CASTS, URINE 1 /LPF (None Seen); SQUAMOUS EPITHELIAL CELL,UR RARE /HPF (0-2)
[2023-11-03] MEDS ORDERED: ACETAMINOPHEN 325 MG TAB PO PRN (16:30)
[2023-11-03] MEDS: ACETAMINOPHEN 325 MG TAB PO PRN (21:28)
[2023-11-04 07:47] LABS: BASOPHILS # (AUTO) 0.02 K/uL (0.00-0.20); BASOPHILS % (AUTO) 0.3 % (0.0-5.0); EOSINOPHILS % (AUTO) 1.7 % (0.0-8.0); HEMATOCRIT 30.6 % (42-54); IMMATURE GRANULOCYTE ABSOLUTE 0.04 K/uL (0-1); LYMPHOCYTES % (AUTO) 17.8 % (21.0-51.0); MEAN CORPUSCULAR HEMOGLOBIN 26.8 pg (27.0-33.0); MEAN CORPUSCULAR VOLUME 86.4 fL (79-99); MONOCYTES # (AUTO) 0.3 K/uL (0.1-1.0); MONOCYTES % (AUTO) 5.9 % (3.0-13.0); NEUTROPHILS # (AUTO) 4.3 K/uL (1.8-7.7); NEUTROPHILS % (AUTO) 73.6 % (40.0-77.0); PLATELET COUNT (AUTO) 255 K/uL (130-400); RED BLOOD CELL COUNT(AUTO) 3.54 MIL/uL (4.50-6.20); RED CELL DISTRIBUTION WIDTH 15.7 % (11.0-15.5); WHITE BLOOD COUNT (AUTO) 5.8 K/uL (4.8-10.8)
[2023-11-04 08:03] VITALS: BP 91/59; PULSE 93; RESP 14; O2SAT 97
[2023-11-04 08:11] LABS: BILIRUBIN,TOTAL 0.9 mg/dL (0.2-1.0); CREATININE 0.9 mg/dL (0.5-1.3); TOTAL PROTEIN, SERUM 7.2 g/dL (6.0-8.3)
== END 2023-11-04 09:12 | disposition home or self-care (01) ==
LOC: EDH 12:35 → EDHIP 12:36
PROVIDERS: ADMIT Internal Medicine; ATTEND Internal Medicine
DX: N17.9 Acute kidney failure, unspecified (principal); E86.0 Dehydration; I11.0 Hypertensive heart disease with heart failure; I50.9 Heart failure, unspecified; E86.9 Volume depletion, unspecified; J43.9 Emphysema, unspecified; I95.9 Hypotension, unspecified; D64.9 Anemia, unspecified; Z85.528 Personal history of other malignant neoplasm of kidney; Z95.0 Presence of cardiac pacemaker; Z95.5 Presence of coronary angioplasty implant and graft; Z79.899 Other long term (current) drug therapy
CPT/HCPCS: 96360; 96361; 82550; 84484; 80053 ×2; 83880; 85025 ×2; 87040 ×2; 87086; 83605; 81001; 36415 ×2; 71045; 99291; 93005; 84145; G0378 ×17; J7030

== ENCOUNTER → 2024-01-06 | Outpatient (CLI) | payer MEDICARE | END | disposition home or self-care (01) | LOC: RAH 13:26 | PROVIDERS: ATTEND Internal Medicine | DX: C64.9 Malignant neoplasm of unspecified kidney, except renal pelvis (principal); J44.9 Chronic obstructive pulmonary disease, unspecified | CPT/HCPCS: 71046; 74018 ==

== ENCOUNTER 2024-01-19 20:31 | Emergency (ER) | payer OTHER, MEDICARE ==
[~2024-01-19] VITALS: Ht 167.6 cm; Wt 83.0 kg
[2024-01-19 20:33] VITALS: TEMP 100.3
[2024-01-19 20:47] LABS: BASOPHILS # (AUTO) 0.01 K/uL (0.00-0.20); BASOPHILS % (AUTO) 0.1 % (0.0-5.0); EOSINOPHILS # (AUTO) 0.02 K/uL (0.00-0.70); EOSINOPHILS % (AUTO) 0.1 % (0.0-8.0); HEMATOCRIT 30.5 % (42-54); IMMATURE GRANULOCYTE ABSOLUTE 0.12 K/uL (0-1); LYMPHOCYTES # (AUTO) 1.5 K/uL (1.0-4.8); MEAN CORPUSCULAR HEMOGLOBIN 27.8 pg (27.0-33.0); MEAN CORPUSCULAR HGB CONC 31.1 g/dL (32.0-36.0); MEAN CORPUSCULAR VOLUME 89.2 fL (79-99); MONOCYTES # (AUTO) 0.9 K/uL (0.1-1.0); MONOCYTES % (AUTO) 6.5 % (3.0-13.0); NEUTROPHILS # (AUTO) 11.4 K/uL (1.8-7.7); NEUTROPHILS % (AUTO) 81.4 % (40.0-77.0); PLATELET COUNT (AUTO) 219 K/uL (130-400); RED BLOOD CELL COUNT(AUTO) 3.42 MIL/uL (4.50-6.20); RED CELL DISTRIBUTION WIDTH 19.2 % (11.0-15.5)
[2024-01-19 20:57] LABS: INR 1.11 (0.85-1.15); PROTHROMBIN TIME 11.9 SEC (9.6-11.6)
[2024-01-19 20:58] LABS: PARTIAL THROMBOPLASTIN TIME 25.1 SEC (26.3-35.5)
[2024-01-19 20:59] LABS: POTASSIUM 3.6 mmol/L (3.5-5.1)
[2024-01-19 21:06] LABS: B-TYPE NATRIURETIC PEPTIDE 282 pg/mL (0-100)
[2024-01-19 21:09] LABS: ALBUMIN 2.6 g/dL (3.5-5.0); BILIRUBIN,DIRECT 0.2 mg/dL (0.0-0.3); BILIRUBIN,TOTAL 0.3 mg/dL (0.2-1.0); MAGNESIUM 1.5 mg/dL (1.80-2.40); TOTAL PROTEIN, SERUM 6.4 g/dL (6.0-8.3)
[2024-01-19] MEDS: ASPIRIN 325MG TAB PO ONE (21:30)
[2024-01-19] MEDS: cefTRIAXone 1G VIAL IVPB ONE (21:31)
[2024-01-19] MEDS: NITROGLYCERIN 1GM OINT 1 INCH/1GM TD ONE (21:31)
[2024-01-19] MEDS: 0.9% NACL 500ML IV.SOLN 500 ML IV SCH (21:32)
[2024-01-19] MEDS: metoPROLOL tartRATE 1 MG/ML 5ML VIAL IV ONE (21:32)
[2024-01-19] MEDS: acetaMINOPHEN 500 MG TABLET PO ONE (21:32)
[2024-01-19 21:41] VITALS: BP 146/90; PULSE 96; RESP 20; O2SAT 97
[2024-01-19 21:51] LABS: APPEARANCE,URINE CLEAR (CLEAR); BILIRUBIN,URINE NEGATIVE (NEGATIVE); COLOR,URINE LIGHT-YELLOW (YELLOW); GLUCOSE, URINE (UA) NEGATIVE (NEGATIVE); KETONES,URINE NEGATIVE (NEGATIVE); LEUKOCYTE ESTERASE ,URINE NEGATIVE Leu/uL (NEGATIVE); NITRATE,URINE NEGATIVE (NEGATIVE); OCCULT BLOOD,URINE NEGATIVE (NEGATIVE); PROTEIN,URINE NEGATIVE (NEGATIVE); UROBILINOGEN,URINE 0.2 mg/dL (0.2-1.0)
[2024-01-19 21:52] LABS: ADD UA MICROSCOPIC YES
[2024-01-19 21:53] LABS: MUCUS,URINE RARE LPF (None Seen); RBC,URINE 0-1 /HPF (0-1); SQUAMOUS EPITHELIAL CELL,UR RARE /HPF (0-2); WBC,URINE 0-1 /HPF (0-1)
[2024-01-19 22:05] VITALS: TEMP 99
[2024-01-19] MEDS: MAGNESIUM 2GM PREMIX 50ML 50 ML IV SCH (22:55)
== END 2024-01-20 00:25 | disposition left against medical advice (07) ==
LOC: EDH 20:31
DX: R07.89 Other chest pain (principal); M79.602 Pain in left arm; R06.02 Shortness of breath; I10 Essential (primary) hypertension; I25.10 Atherosclerotic heart disease of native coronary artery without angina pectoris; F17.200 Nicotine dependence, unspecified, uncomplicated; Z95.810 Presence of automatic (implantable) cardiac defibrillator; Z79.2 Long term (current) use of antibiotics; Z79.899 Other long term (current) drug therapy; Z79.84 Long term (current) use of oral hypoglycemic drugs; Z85.528 Personal history of other malignant neoplasm of kidney; Z95.5 Presence of coronary angioplasty implant and graft; Z53.29 Procedure and treatment not carried out because of patient's decision for other reasons
CPT/HCPCS: 99285; 96374; 96375; 71045; 82550; 80076; 83735; 84484 ×3; 80048; 83880; 85025; 85610; 85730; 87040; 83605; 81001; 36415; 93005; 84145; J3475; J7040; J3490; J0696

== ENCOUNTER 2024-01-30 18:50 | Emergency (ER) | payer OTHER, MEDICARE ==
[~2024-01-30] VITALS: Ht 170.2 cm; Wt 85.3 kg
[2024-01-30] MEDS: 0.9%NACL 1000ML 1,000 ML IV ONE (20:31)
[2024-01-30 20:33] LABS: BASOPHILS # (AUTO) 0.01 K/uL (0.00-0.20); BASOPHILS % (AUTO) 0.1 % (0.0-5.0); EOSINOPHILS # (AUTO) 0.14 K/uL (0.00-0.70); EOSINOPHILS % (AUTO) 1.2 % (0.0-8.0); HEMATOCRIT 30.8 % (42-54); IMMATURE GRANULOCYTE ABSOLUTE 0.08 K/uL (0-1); LYMPHOCYTES # (AUTO) 1.7 K/uL (1.0-4.8); LYMPHOCYTES % (AUTO) 14.6 % (21.0-51.0); MEAN CORPUSCULAR HEMOGLOBIN 28.2 pg (27.0-33.0); MEAN CORPUSCULAR HGB CONC 31.2 g/dL (32.0-36.0); MEAN CORPUSCULAR VOLUME 90.6 fL (79-99); MONOCYTES # (AUTO) 0.5 K/uL (0.1-1.0); MONOCYTES % (AUTO) 4.1 % (3.0-13.0); NEUTROPHILS % (AUTO) 79.3 % (40.0-77.0); PLATELET COUNT (AUTO) 209 K/uL (130-400); RED CELL DISTRIBUTION WIDTH 17.9 % (11.0-15.5); WHITE BLOOD COUNT (AUTO) 11.3 K/uL (4.8-10.8)
[2024-01-30 20:49] LABS: CREATININE 0.9 mg/dL (0.5-1.3); POTASSIUM 3.8 mmol/L (3.5-5.1)
[2024-01-30 20:58] LABS: MAGNESIUM 1.6 mg/dL (1.80-2.40)
[2024-01-30 21:10] LABS: APPEARANCE,URINE CLEAR (CLEAR); BILIRUBIN,URINE NEGATIVE (NEGATIVE); COLOR,URINE LIGHT-YELLOW (YELLOW); GLUCOSE, URINE (UA) NEGATIVE (NEGATIVE); KETONES,URINE NEGATIVE (NEGATIVE); LEUKOCYTE ESTERASE ,URINE NEGATIVE Leu/uL (NEGATIVE); NITRATE,URINE NEGATIVE (NEGATIVE); OCCULT BLOOD,URINE NEGATIVE (NEGATIVE); PROTEIN,URINE NEGATIVE (NEGATIVE); UROBILINOGEN,URINE 6 mg/dL (0.2-1.0)
[2024-01-30 21:11] LABS: ADD UA MICROSCOPIC NO
[2024-01-30] MEDS: Solu-medROL 125MG VIAL IVP ONE (21:32)
[2024-01-30 22:28] VITALS: BP 124/71; PULSE 94; RESP 16; TEMP 98.3; O2SAT 98
== END 2024-01-30 22:38 | disposition home or self-care (01) ==
LOC: EDH 18:50
DX: E86.0 Dehydration (principal); D64.9 Anemia, unspecified; C64.9 Malignant neoplasm of unspecified kidney, except renal pelvis; I10 Essential (primary) hypertension; F17.200 Nicotine dependence, unspecified, uncomplicated; Z79.84 Long term (current) use of oral hypoglycemic drugs; Z79.899 Other long term (current) drug therapy; Z95.5 Presence of coronary angioplasty implant and graft; Z95.810 Presence of automatic (implantable) cardiac defibrillator; Z98.890 Other specified postprocedural states
CPT/HCPCS: 99285; 96374; 71045; 83735; 84484; 80048; 85025; 81003; 36415; 93005; J7030; J2919

== ENCOUNTER 2024-02-06 21:28 | Emergency (ER) | payer OTHER, MEDICARE ==
[~2024-02-06] VITALS: Ht 167.6 cm; Wt 84.4 kg
[2024-02-06 21:48] LABS: BASOPHILS # (AUTO) 0.02 K/uL (0.00-0.20); BASOPHILS % (AUTO) 0.1 % (0.0-5.0); EOSINOPHILS # (AUTO) 0.07 K/uL (0.00-0.70); EOSINOPHILS % (AUTO) 0.5 % (0.0-8.0); IMMATURE GRANULOCYTE ABSOLUTE 0.33 K/uL (0-1); LYMPHOCYTES % (AUTO) 13.3 % (21.0-51.0); MEAN CORPUSCULAR HEMOGLOBIN 28.9 pg (27.0-33.0); MEAN CORPUSCULAR HGB CONC 31.3 g/dL (32.0-36.0); MEAN CORPUSCULAR VOLUME 92.5 fL (79-99); MONOCYTES # (AUTO) 0.6 K/uL (0.1-1.0); MONOCYTES % (AUTO) 4.2 % (3.0-13.0); NEUTROPHILS # (AUTO) 11.7 K/uL (1.8-7.7); NEUTROPHILS % (AUTO) 79.7 % (40.0-77.0); NUCLEATED RED BLOOD CELLS 0.2 % (0.0-0.19); PLATELET COUNT (AUTO) 211 K/uL (130-400); RED BLOOD CELL COUNT(AUTO) 3.46 MIL/uL (4.50-6.20); RED CELL DISTRIBUTION WIDTH 18.7 % (11.0-15.5); WHITE BLOOD COUNT (AUTO) 14.7 K/uL (4.8-10.8)
[2024-02-06 22:02] LABS: CREATININE 0.9 mg/dL (0.5-1.3); POTASSIUM 3.3 mmol/L (3.5-5.1)
[2024-02-06 22:08] LABS: B-TYPE NATRIURETIC PEPTIDE 129 pg/mL (0-100)
[2024-02-06 22:12] LABS: MAGNESIUM 1.1 mg/dL (1.80-2.40)
[2024-02-06] MEDS: hydroMORPHone 0.5 MG SYG (0.5MG/0.5ML) IVP ONE (22:38)
[2024-02-06] MEDS: Solu-medROL 125MG VIAL IVP ONE (22:38)
[2024-02-06 23:16] LABS: APPEARANCE,URINE CLEAR (CLEAR); BILIRUBIN,URINE NEGATIVE (NEGATIVE); COLOR,URINE LIGHT-YELLOW (YELLOW); GLUCOSE, URINE (UA) NEGATIVE (NEGATIVE); KETONES,URINE NEGATIVE (NEGATIVE); LEUKOCYTE ESTERASE ,URINE NEGATIVE Leu/uL (NEGATIVE); MUCUS,URINE RARE LPF (None Seen); NITRATE,URINE NEGATIVE (NEGATIVE); OCCULT BLOOD,URINE NEGATIVE (NEGATIVE); PH,URINE 5.5 (5.0-8.0); PROTEIN,URINE NEGATIVE (NEGATIVE); RBC,URINE 0-1 /HPF (0-1); WBC,URINE 0-1 /HPF (0-1)
[2024-02-06] MEDS: MAGNESIUM 4GM PREMIX 100ML IV SCH (23:38)
[2024-02-06] MEDS: PoTASSium BIcarbonate/CIT AC 25 MEQ TABLET.EFF PO ONE (23:40)
[2024-02-07] MEDS ORDERED: PRED20TA3 PO (00:02)
[2024-02-07 01:15] VITALS: BP 138/88; PULSE 91; RESP 18; TEMP 98.4; O2SAT 95
== END 2024-02-07 01:17 | disposition home or self-care (01) ==
LOC: EDH 21:28
DX: D64.9 Anemia, unspecified (principal); E86.0 Dehydration; C79.00 Secondary malignant neoplasm of unspecified kidney and renal pelvis; I11.9 Hypertensive heart disease without heart failure; F17.200 Nicotine dependence, unspecified, uncomplicated; Z79.84 Long term (current) use of oral hypoglycemic drugs; Z79.899 Other long term (current) drug therapy; Z95.810 Presence of automatic (implantable) cardiac defibrillator; Z98.890 Other specified postprocedural states
CPT/HCPCS: 99285; 96374; 96375; 71045; 83735; 84484; 80048; 83880; 85025; 81001; 36415; 93005; J2919; J3475; J1171

== ENCOUNTER → 2024-07-11 | Outpatient (CLI) | payer OTHER, MEDICARE ==
[~2024-07-11] MED LIST changes: +PRED20TA3 PO
--- NOTE | 2024-07-11 09:14 | HMCIMG ---
FINGER(S) 2+VWS RT HISTORY: Edema COMPARISON: None TECHNIQUE: 2 images of right thumb were obtained. FINDINGS: Destructive changes are seen of the first distal phalanx with bone resorption changes. Findings may be related to osteomyelitis. Adjacent soft tissue swelling is seen. Superimposed fracture cannot be excluded. No dislocation is seen. Degenerative changes are seen. IMPRESSION: 1. Findings as described above.
== END | disposition home or self-care (01) ==
LOC: RAH 08:37
PROVIDERS: ATTEND Dermatology
DX: M18.11 Unilateral primary osteoarthritis of first carpometacarpal joint, right hand (principal); M86.8X4 Other osteomyelitis, hand; R60.9 Edema, unspecified
CPT/HCPCS: 73140

== ENCOUNTER 2024-08-12 22:08 | Emergency (ER) | payer OTHER, MEDICARE ==
[~2024-08-12] VITALS: Ht 167.6 cm; Wt 73.9 kg
--- NOTE | 2024-08-12 22:14 | NUR ---
TRIAGE EDIT TO ADD DOOR FRAME BUILDER NAME
--- NOTE | 2024-08-12 22:34 | NUR ---
PT EATING BAG OF FRITO LAYS AND DRINKING PO ZURI, TOLERATING WELL
[2024-08-12] MEDS: morPHINE 2 MG SYG IM ONE (23:09)
[2024-08-12] MEDS: ketOROlac 30MG VIAL (30MG/ML) IM ONE (23:10)
--- NOTE | 2024-08-12 23:24 | ERN ---
ED Note History of Present Illness Stated Complaint: RT FLANK PAIN Chief Complaint: Rib Pain Time Seen by MD: 22:10 Time Seen by Midlevel: 22:10 Dictation: The patient is a 53-year-old male with a history of renal cancer, bone cancer who presents to the emergency department with complaints of right anterior rib pain. Patient reports that he has had this pain for about six or seven months. Reports pain was worse today. Denies any traumas. Patient reports pain is similar to the time he had a rib fracture on his left side. Denies any nausea, vomiting, diarrhea, fevers, shortness of breath or any other complaints. Allergies: Coded Allergies: No Known Drug Allergies (Unverified Allergy, Unknown, 04/20/21) Home Meds Active Scripts Prednisone (Prednisone) 20 Mg Tablet, 1 TAB PO AD for 6 Days, #14 TAB 0 Refills TAKE 1 TAB BY MOUTH THREE TIMES PER DAY X3 DAYS, THEN TAKE 1 TAB BY MOUTH TWICE A DAY X2 DAYS, THEN TAKE 1 TAB BY MOUTH ONCE A DAY X1 DAY. Prov:LAN ONEAL MD 02/07/24 Cephalexin Monohydrate (Keflex) 500 Mg Cap, 500 MG PO BID for 7 Days, #14 CAP Prov:ZURI GROVER MD 10/24/23 Acetaminophen with Codeine (Acetaminophen-Cod #3 Tablet) 300 Mg-30 Mg Tablet, 1- 2 TAB PO Q4H PRN for PAIN LEVEL 7 TO 10, #40 TAB 2 Refills Prov:CHICHO WHELAN Sr., MD 05/29/23 Reported Medications Iron Fum & Ps Cmp/Vit C & B (Integra Capsule) 125 Mg-40 Mg-3 Mg Capsule, 1 CAP PO DAILY 10/14/23 Hydrocodone/Acetaminophen (Hydrocodon-Acetaminophn 10-325) 10 Mg-325 Mg Tablet, 1 EACH PO Q6HPRN PRN for PAIN LEVEL 1 TO 5, TAB 05/30/23 Nabumetone (Nabumetone) 500 Mg Tablet, 500 MG PO BID, TAB 05/30/23 Pantoprazole Sodium (Protonix) 40 Mg Granpkt.dr, 40 MG PO DAILY, PACK 05/30/23 Cetirizine HCl (Cetirizine HCl) 10 Mg Tablet, 10 MG PO HS, TAB 05/30/23 Ondansetron HCl (Ondansetron HCl) 4 Mg Tablet, 4 MG PO Q6HPRN PRN for nausea, TAB 05/30/23 Empagliflozin (Jardiance) 10 Mg Tablet, 10 MG PO DAILY, TAB 05/25/23 Axitinib (Inlyta) 5 Mg Tablet, 5 MG PO BID, TAB 05/25/23 Sacubitril/Valsartan (Entresto 97 mg-103 mg Tablet) 97 Mg-103 Mg Tablet, 1 EACH PO BID, TAB 05/25/23 Metoprolol Succinate (Metoprolol Succinate) 50 Mg Tab.er.24h, 50 MG PO DAILY, TAB 10/09/22 Past Medical History Past Medical History: CHF, COPD, Heart Disease, Hypertension, Other Additional Past Medical Hx: HX OF BONE CA; HX OF RENAL CA, LUNG CANCER,LEFT FX RIB Surgical History: Pacer/AICD, Other Surgical History Other: CARDIAC STENT Family History: HTN Social History: Smokers, Lives with family RN Note Reviewed/Agreed w/PFSH: Yes Review of System Dictation Constitutional: Negative for fever,chills, and weight loss Eyes: Negative for injury, pain,redness, and discharge ENT: Negative for injury,pain or swelling Cardiovascular: Negative for chest pain, palpitations, and edema positive for right rib pain Respiratory: Negative for shortness of breath, cough, and wheezing, Abdomen/GI: Negative for abdominal pain, nausea, vomiting, diarrhea, and constipation Back: Negative for injury and pain : Negative for injury, bleeding and discharge MS/Extremity: Negative for injury and deformity Skin: Negative for rash, and discoloration Neuro: Negative for headache, weakness, numbness, tingling, and seizure Psych: Negative for suicide ideation, homicidal ideation, and hallucinations Initial Vital Sign VS Vital Signs Date Time Temp Pulse Resp B/P (MAP) Pulse Ox O2 Delivery O2 Flow Rate FiO2 08/12/24 22:09 98.1 109 20 109/66 96 Room Air Physical Exam Dictation Vital Signs reviewed General Appearance: Alert, oriented x 3, no acute distress, well developed, nourished. Head and Face: non-traumatic. Eyes: PERRL, pink conjunctivas, eyelid no trauma, anterior chamber with arcus senilis. Ears: Pinnas intact and no signs of trauma or erythema ear canals clear and no discharge TM no erythema Nose: No discharge, no bleeding. Oropharynx: Mouth normal, tongue pink. pharynx clear,no erythema, tonsils no exudates, no abscesses noted, mucous membrane moist Neck: Supple, non-tender, no thyromegaly, no masses, no JVD, no bruits Breast:Deferred Chest:No tenderness, no crepitus, no paradoxical movement, no retractions , right anterior rib tenderness, no bruising or open wounds. Lungs:Clear, well-ventilated, symmetric, no rales, no wheezing, no rhonchi, no stridor, good breath sounds bilaterally Heart: Regular rate, regular rhythm, no murmur, no gallops Vascular: no peripheral edema, Abdomen: Soft, positive bowel sounds, nondistended, no guarding, nontender, no rebound, no masses no hepatomegaly, no splenomegaly, no Ayala's sign, no hernias. Rectal: Deferred Genital: Deferred Neurological: Normal speech, motor function intact, sensory function intact Musculoskeletal: Neck nontender, full range of motion, back nontender, full range of motion, Extremities: nontender, full range of motion Skin: Color pink, dry, no turgor, no rash, no lacerations, no abrasions, no contusions. Lymphatic: Deferred Results (Laboratory/Radiology) Labs Reviewed?: Yes ED Course ED Course Orders Procedure Category Date Status Time Ribs Uni Rt W Pa RAD 08/12/24 Taken Chest 3+ Vws 22:47 Morphine 2mg Syg PHA 08/12/24 Complete (Morphine 2mg Syg) 23:00 Ketorolac PHA 08/12/24 Complete Tromethamine 30mg/Ml 23:00 Current Medications Medications (Trade) Dose Ordered Sig/Helen Route PRN Reason Start Time Stop Time Status Last Admin Dose Admin Ketorolac Tromethamine (toRADol) 30 mg ONCE ONCE IM 08/12/24 23:00 08/12/24 23:01 DC 08/12/24 23:10 Morphine Sulfate (morPHINE 2MG SYG) 2 mg ONCE ONCE IM 08/12/24 23:00 08/12/24 23:01 DC 08/12/24 23:09 Vital Signs Date Time Temp Pulse Resp B/P (MAP) Pulse Ox O2 Delivery O2 Flow Rate FiO2 08/12/24 22:09 98.1 109 20 109/66 96 Room Air Medical Decision Making MDM The patient is a 53-year-old male with a history of renal cancer, bone cancer who presents to the emergency department with complaints of right lower anterior rib pain. Patient reports that he has had this pain for about six or seven months. Reports pain was worse today. Denies any traumas. Patient reports pain is similar to the time he had a rib fracture on his left side. Denies any nausea, vomiting, diarrhea, fevers, shortness of breath or any other complaints. No obvious fractures seen on Xray. Patient with clear lung sounds, in no acute distress, stable vital signs will be discharge to follow up with PCP Differential diagnosis: Rib fracture, costochondritis, musculoskeletal pain Need for hospitalization: Patient does not meet criteria for hospitalization. There are no social concerns with this patient. DX & DISP Disposition: Discharge Departure Impression: Primary Impression: Rib pain on right side Additional Impression: Musculoskeletal pain Condition: Stable Scripts Cyclobenzaprine HCl (Flexeril) 10 Mg Tab 10 MG PO TID for muscle sstiffness, #14 TAB 0 Refills Prov: RODRIGO LEY 08/12/24 Additional Instructions: FOLLOW-UP WITH PRIMARY CARE PROVIDER IN 1 TO 2 DAYS. TAKE MEDICATIONS DIRECTED HERE IN THE EMERGENCY ROOM. OKAY TO CONTINUE HOME MEDICATIONS UNLESS OTHERWISE DISCUSSED DURING YOUR VISIT IN THE EMERGENCY ROOM TODAY. RETURN TO YOUR NEAREST EMERGENCY ROOM IF SYMPTOMS WORSEN OR IF THERE IS NO IMPROVEMENT. CALL 911 IF YOU NEED IMMEDIATE ASSISTANCE. TAKE TYLENOL OR MOTRIN [id number] NEEDED AND IF NO CONTRAINDICATIONS ARE PRESENT. INCREASE ORAL HYDRATION. A WOUND CULTURE OR URINE CULTURE WAS ORDERED HERE IN THE EMERGENCY ROOM DEPARTMENT PLEASE FOLLOW-UP WITH PRIMARY CARE PROVIDER AND ADVISE THEM TO GET REPEAT PORTS FROM OUR FACILITY. IF YOU HAD ANY АННА WRAP/SPLINTS THAT WERE APPLIED HERE, PLEASE DO NOT REMOVE THEM UNTIL YOU SEE YOUR PRIMARY CARE OR SPECIALTY. Referrals: SUKH GUARDADO MD (PCP) Time of Disposition: 23:53 I have reviewed the case, and I agree with RODRIGO LEY Aug 12, 2024 23:24
[2024-08-12] MEDS ORDERED: CYCL10TA16 PO (23:54)
[2024-08-13 00:07] VITALS: BP 123/69; PULSE 98; RESP 18; TEMP 98.2; O2SAT 97
--- NOTE | 2024-08-13 08:27 | HMCIMG ---
RIGHT RIBS/CHEST RADIOGRAPHS - 3 VIEWS INDICATION: Right rib pain COMPARISON: 02/06/2024 chest radiograph FINDINGS: Left sided dual chamber pacer and continuous leads remain in customary position. Right-sided Port-A-Cath in adequate position. Heart size is normal. Lungs are clear. No evidence for pneumothorax or pleural effusion. No evidence for pulmonary parenchymal contusion. No rib fracture identified. Nonspecific 2.6 cm calcific opacity projects over the left lower lung, unchanged. No radiopaque foreign body noted. IMPRESSION: 1. No right rib abnormality noted. 2. Nonspecific 2.6 cm calcific opacity projects over the left lower lung, unchanged.
== END 2024-08-13 00:09 | disposition home or self-care (01) ==
LOC: EDH 22:08
DX: R07.81 Pleurodynia (principal); M79.10 Myalgia, unspecified site; J44.9 Chronic obstructive pulmonary disease, unspecified; I11.0 Hypertensive heart disease with heart failure; I50.9 Heart failure, unspecified; F17.200 Nicotine dependence, unspecified, uncomplicated; Z79.84 Long term (current) use of oral hypoglycemic drugs; Z79.899 Other long term (current) drug therapy; Z85.118 Personal history of other malignant neoplasm of bronchus and lung; Z95.5 Presence of coronary angioplasty implant and graft; Z95.810 Presence of automatic (implantable) cardiac defibrillator
CPT/HCPCS: 99284; 71101; 96372 ×2; J1885; J2270

== ENCOUNTER 2024-08-21 20:52 | Inpatient (IN) | payer OTHER, MEDICARE ==
[~2024-08-21] VITALS: Ht 167.6 cm; Wt 76.0 kg
[~2024-08-21 20:52] MED LIST changes: +CYCL10TA16 PO
--- NOTE | 2024-08-21 21:07 | NUR ---
ONCOLOGIST DR VASQUEZ
--- NOTE | 2024-08-21 22:07 | ERN ---
General Chief Complaint: Multiple Complaints Stated Complaint: SWOLLEN LEGS, RIB PAIN Time Seen by MD: 21:13 Source: patient History of Present Illness Initial Comments 53-year-old male with a history of renal cell carcinoma and bone cancer as well as CHF presents with bilateral lower extremity swelling and pain as well as a little bit of palpitations in his chest. He is on a �water pill� but he feels like it is not adequate and the swelling in his legs is worse than it has ever been. Currently he is on antibiotics for an osteomyelitis in his right thumb and he wonders if his home IV antibiotic therapy is causing fluid overload. Allergies: Coded Allergies: No Known Drug Allergies (Unverified Allergy, Unknown, 04/20/21) Home Meds Active Scripts Cyclobenzaprine HCl (Flexeril) 10 Mg Tab, 10 MG PO TID for muscle sstiffness, #14 TAB 0 Refills Prov:RODRIGO LEY QUICK TECHNICIAN 08/12/24 Prednisone (Prednisone) 20 Mg Tablet, 1 TAB PO AD for 6 Days, #14 TAB 0 Refills TAKE 1 TAB BY MOUTH THREE TIMES PER DAY X3 DAYS, THEN TAKE 1 TAB BY MOUTH TWICE A DAY X2 DAYS, THEN TAKE 1 TAB BY MOUTH ONCE A DAY X1 DAY. Prov:LAN ONEAL MD 02/07/24 Cephalexin Monohydrate (Keflex) 500 Mg Cap, 500 MG PO BID for 7 Days, #14 CAP Prov:ZURI GROVER MD 10/24/23 Acetaminophen with Codeine (Acetaminophen-Cod #3 Tablet) 300 Mg-30 Mg Tablet, 1- 2 TAB PO Q4H PRN for PAIN LEVEL 7 TO 10, #40 TAB 2 Refills Prov:CHICHO WHELAN Sr., MD 05/29/23 Reported Medications Iron Fum & Ps Cmp/Vit C & B (Integra Capsule) 125 Mg-40 Mg-3 Mg Capsule, 1 CAP PO DAILY 10/14/23 Hydrocodone/Acetaminophen (Hydrocodon-Acetaminophn 10-325) 10 Mg-325 Mg Tablet, 1 EACH PO Q6HPRN PRN for PAIN LEVEL 1 TO 5, TAB 05/30/23 Nabumetone (Nabumetone) 500 Mg Tablet, 500 MG PO BID, TAB 05/30/23 Pantoprazole Sodium (Protonix) 40 Mg Granpkt.dr, 40 MG PO DAILY, PACK 05/30/23 Cetirizine HCl (Cetirizine HCl) 10 Mg Tablet, 10 MG PO HS, TAB 05/30/23 Ondansetron HCl (Ondansetron HCl) 4 Mg Tablet, 4 MG PO Q6HPRN PRN for nausea, TAB 05/30/23 Empagliflozin (Jardiance) 10 Mg Tablet, 10 MG PO DAILY, TAB 05/25/23 Axitinib (Inlyta) 5 Mg Tablet, 5 MG PO BID, TAB 05/25/23 Sacubitril/Valsartan (Entresto 97 mg-103 mg Tablet) 97 Mg-103 Mg Tablet, 1 EACH PO BID, TAB 05/25/23 Metoprolol Succinate (Metoprolol Succinate) 50 Mg Tab.er.24h, 50 MG PO DAILY, TAB 10/09/22 Past Medical History Past Medical History: Heart Disease, Hypertension Medical History Other: HX OF BONE CA; HX OF RENAL CA, LUNG CANCER,LEFT FX RIB Past Surgical History: Other Surgical History Other: WRIST LEFT SX; PORTACATH Family History Family History: HTN Social History Social History: Smokers, Lives with family Constitutional: (-) chills, (-) diaphoresis, (-) fever, (-) malaise, (-) weakness, (-) other documentation EENTM: (-) eye pain, (-) blurred vision, (-) tearing, (-) double vision, (-) ear pain, (-) ear discharge, (-) nose pain, (-) nose congestion, (-) throat pain, (-) Throat swelling, (-) mouth pain, (-) tooth pain, (-) mouth swelling, (-) other documentation Respiratory: (-) cough, (-) orthopnea, (-) short of breath, (-) stridor, (-) wheezing, (-) other documentation Cardiovascular: (+) edema, (+) palpitations, (+) dyspnea on exertion Gastrointestinal/Abdominal: (-) nausea, (-) vomiting, (-) diarrhea, (-) abdominal pain, (-) abdominal distention, (-) constipation, (-) rectal bleeding, (-) dark stool/melena, (-) other documentation Genitourinary: (-) penile discharge, (-) dysuria, (-) frequency, (-) hematuria, (-) pain, (-) other documentation Musculoskeletal: (-) Neck pain, (-) back pain, (-) Flank Pain, (-) joint pain, (-) joint swelling, (-) muscle pain, (-) muscle stiffness, (-) gout, (-) other documentation Skin: (-) laceration, (-) contusion, (-) abrasion, (-) abscess, (-) rash, (-) change in color, (-) change in hair, (-) change in nails, (-) diaphoresis, (-) dryness, (-) other documentation Neuro: (-) altered mental status, (-) headache, (-) syncope, (-) paralysis, (-) numbness, (-) seizure, (-) pre-existing deficit, (-) tremors, (-) weakness, (-) dizziness, (-) slurred speech, (-) vertigo, (-) other documentation Physical Exam General Appearance: (+) no apparent distress Orientation: (+) alert, (+) oriented x 3 Head/Face Trauma: No Eye: bilateral eye normal inspection, bilateral eye PERRL, bilateral eye EOMI Ear, Nose, Throat: (+) hearing grossly normal, (+) normal ENT inspection, (+) moist mucous membraine Neck: (+) normal inspection, (+) supple Respiratory: (+) chest non-tender Respiratory Comment Patient definitely has decreased lung sounds bilaterally and a decrease in breath sounds extends to at least midway up his back. Heart tones are dull. Heart: (+) regular Heart Comment Heart tones sound distant Vascular Comment Bilateral pretibial plus four edema no cellulitis very tender Gastrointestinal: (+) soft, (+) non-tender, (+) bowel sound present Results Laboratory and Microbiology Lab and Micro Result Laboratory Tests Test 08/21/24 22:50 08/21/24 23:48 White Blood Count 15.7 K/uL (4.8-10.8) H Red Blood Count 2.85 MIL/uL (4.50-6.20) L Hemoglobin 7.7 g/dL (14.0-18.0) L Hematocrit 26.1 % (42-54) L Mean Corpuscular Volume 91.6 fL (79-99) Mean Corpuscular Hemoglobin 27.0 pg (27.0-33.0) Mean Corpuscular Hemoglobin Concent 29.5 g/dL (32.0-36.0) L Red Cell Distribution Width 18.9 % (11.0-15.5) H Platelet Count 258 K/uL (130-400) Mean Platelet Volume 9.5 fL (7.5-10.5) Immature Granulocyte % (Auto) 0.9 % (0-1) Neutrophils (%) (Auto) 90.1 % (40.0-77.0) H Lymphocytes (%) (Auto) 5.7 % (21.0-51.0) L Monocytes (%) (Auto) 3.1 % (3.0-13.0) Eosinophils (%) (Auto) 0.1 % (0.0-8.0) Basophils (%) (Auto) 0.1 % (0.0-5.0) Neutrophils # (Auto) 14.2 K/uL (1.8-7.7) H Lymphocytes # (Auto) 0.9 K/uL (1.0-4.8) L Monocytes # (Auto) 0.5 K/uL (0.1-1.0) Eosinophils # (Auto) 0.02 K/uL (0.00-0.70) Basophils # (Auto) 0.02 K/uL (0.00-0.20) Absolute Immature Granulocyte (auto 0.14 K/uL (0-1) Nucleated Red Blood Cells 0.0 % (0.0-0.19) White Cell Morphology Comment CONSISTENT W/DIFF Platelet Morphology LARGE PLTS PRESENT Red Blood Cell Morphology ANISO 1+ Sodium Level 142 mmol/L (136-145) Potassium Level 3.7 mmol/L (3.5-5.1) Chloride Level 105 mmol/L (101-111) Carbon Dioxide Level 29 mmol/L (21-32) Blood Urea Nitrogen 10 mg/dL (7-18) Creatinine 0.6 mg/dL (0.5-1.3) Glomerular Filtration Rate Calc 116 mL/min (>90) Random Glucose 109 mg/dL (70-105) H Total Calcium 10.2 mg/dL (8.5-10.1) H Magnesium Level 1.40 mg/dL (1.80-2.40) L Total Bilirubin 0.2 mg/dL (0.2-1.0) Direct Bilirubin 0.1 mg/dL (0.0-0.3) Aspartate Amino Transf (AST/SGOT) 8 U/L (10-37) L Alanine Aminotransferase (ALT/SGPT) 14 U/L (12-78) Alkaline Phosphatase 141 U/L (50-136) H Troponin I High Sensitivity 16 ng/L (4-75) B-Type Natriuretic Peptide 228 pg/mL (0-100) H Total Protein 6.6 g/dL (6.0-8.3) Albumin 2.2 g/dL (3.5-5.0) L Urine Color YELLOW (YELLOW) Urine Appearance CLEAR (CLEAR) Urine pH 6.0 (5.0-8.0) Urine Specific [place] 1.038 (1.001-1.031) Urine Protein 50 mg/dL (NEGATIVE) H Urine Glucose (UA) NEGATIVE mg/dL (NEGATIVE) Urine Ketones NEGATIVE mg/dL (NEGATIVE) Urine Occult Blood NEGATIVE (NEGATIVE) Urine Nitrate NEGATIVE (NEGATIVE) Urine Bilirubin NEGATIVE mg/dL (NEGATIVE) Urine Urobilinogen 3 mg/dL (0.2-1.0) H Urine Leukocyte Esterase NEGATIVE Regino/uL Urine RBC 0-1 /HPF (0-1) Urine WBC 2-5 /HPF (0-1) H Urine Bacteria None /HPF (None Seen) MDM By physical exam patient is in CHF. I will get a chest x-ray BNP troponin chemistry CBC UA. EKG ED Course Orders Procedure Category Date Status Time Cbc With Differential LAB 08/21/24 Complete 22:07 Chest 1vw RAD 08/21/24 Taken 22:07 12 Lead Ekg Tracing- EKG 08/21/24 Logged Technical 22:07 Magnesium LAB 08/21/24 Complete 22:07 Troponin I High LAB 08/21/24 Complete Sensitivity 22:07 Urinalysis Profile LAB 08/21/24 Complete 22:07 Basic Metabolic Panel LAB 08/21/24 Complete 22:07 B-Type Natriuretic LAB 08/21/24 Complete Peptide 22:07 Hepatic Function Panel LAB 08/21/24 Complete 22:07 Magnesium 2gm Premix PHA 08/22/24 In Process 50ml (Magnesium 2gm 00:00 Furosemide 20mg Vial PHA 08/22/24 Complete (Lasix 20mg Vial) 00:00 Current Medications Medications (Trade) Dose Ordered Sig/Helen Route PRN Reason Start Time Stop Time Status Last Admin Dose Admin Furosemide (LASix 20MG VIAL) 20 mg ONCE ONCE IV 08/22/24 00:00 08/22/24 00:01 DC 08/21/24 23:50 Magnesium Sulfate 50 ml @ 0 mls/hr PROTOCOL IV 08/22/24 00:00 09/21/24 00:00 08/21/24 23:50 Vital Signs Date Time Temp Pulse Resp B/P (MAP) Pulse Ox O2 Delivery O2 Flow Rate FiO2 08/21/24 22:53 98.4 85 20 117/59 96 Room Air* 0 21 08/21/24 21:01 98.4 91 18 114/71 97 Room Air 0 08/21/24 21:01 98.8 84 18 114/71 98 Room Air* 0 21 DX & DISP Disposition: Inpatient Departure Impression: Primary Impression: Acute CHF (congestive heart failure) Additional Impression: Edema Condition: Stable Referrals: SUKH GUARDADO MD (PCP) RIOS VELIZ MD August 21, 2024 22:07
--- NOTE | 2024-08-21 22:23 | NUR ---
ASSUMED PT CARE AT THIS TIME
[2024-08-21 23:04] LABS: BASOPHILS # (AUTO) 0.02 K/uL (0.00-0.20); BASOPHILS % (AUTO) 0.1 % (0.0-5.0); EOSINOPHILS # (AUTO) 0.02 K/uL (0.00-0.70); EOSINOPHILS % (AUTO) 0.1 % (0.0-8.0); HEMATOCRIT 26.1 % (42-54); IMMATURE GRANULOCYTE ABSOLUTE 0.14 K/uL (0-1); LYMPHOCYTES # (AUTO) 0.9 K/uL (1.0-4.8); LYMPHOCYTES % (AUTO) 5.7 % (21.0-51.0); MEAN CORPUSCULAR HGB CONC 29.5 g/dL (32.0-36.0); MEAN CORPUSCULAR VOLUME 91.6 fL (79-99); MONOCYTES # (AUTO) 0.5 K/uL (0.1-1.0); MONOCYTES % (AUTO) 3.1 % (3.0-13.0); NEUTROPHILS # (AUTO) 14.2 K/uL (1.8-7.7); NEUTROPHILS % (AUTO) 90.1 % (40.0-77.0); PLATELET COUNT (AUTO) 258 K/uL (130-400); RED BLOOD CELL COUNT(AUTO) 2.85 MIL/uL (4.50-6.20); RED CELL DISTRIBUTION WIDTH 18.9 % (11.0-15.5); WHITE BLOOD COUNT (AUTO) 15.7 K/uL (4.8-10.8)
[2024-08-21 23:17] LABS: CREATININE 0.6 mg/dL (0.5-1.3); POTASSIUM 3.7 mmol/L (3.5-5.1)
[2024-08-21 23:21] LABS: ALBUMIN 2.2 g/dL (3.5-5.0); BILIRUBIN,DIRECT 0.1 mg/dL (0.0-0.3); BILIRUBIN,TOTAL 0.2 mg/dL (0.2-1.0); MAGNESIUM 1.4 mg/dL (1.80-2.40); TOTAL PROTEIN, SERUM 6.6 g/dL (6.0-8.3)
[2024-08-21 23:46] LABS: B-TYPE NATRIURETIC PEPTIDE 228 pg/mL (0-100)
[2024-08-21] MEDS: MAGNESIUM 2GM PREMIX 50ML 50 ML IV SCH (23:50)
[2024-08-21] MEDS: furoSEMIDE 20MG VIAL IV ONE (23:50)
[2024-08-22] VITALS (8 sets, daily range): BP systolic 98–149; BP diastolic 61–86; PULSE 64–96; RESP 18–20; TEMP 97.7–98.8; O2SAT 96–97
[2024-08-22 00:10] LABS: APPEARANCE,URINE CLEAR (CLEAR); BILIRUBIN,URINE NEGATIVE (NEGATIVE); COLOR,URINE YELLOW (YELLOW); GLUCOSE, URINE (UA) NEGATIVE (NEGATIVE); KETONES,URINE NEGATIVE (NEGATIVE); LEUKOCYTE ESTERASE ,URINE NEGATIVE Leu/uL (NEGATIVE); NITRATE,URINE NEGATIVE (NEGATIVE); OCCULT BLOOD,URINE NEGATIVE (NEGATIVE); PROTEIN,URINE 50 mg/dL (NEGATIVE); UROBILINOGEN,URINE 3 mg/dL (0.2-1.0)
[2024-08-22 00:11] LABS: ADD UA MICROSCOPIC YES
[2024-08-22 00:13] LABS: MUCUS,URINE RARE LPF (None Seen); RBC,URINE 0-1 /HPF (0-1)
[2024-08-22 00:15] LABS: PLATELET MORPHOLOGY LARGE PLTS PRESENT; WBC MORPHOLOGY CONSISTENT W/DIFF
--- NOTE | 2024-08-22 00:44 | NUR ---
REPORT GIVEN TO SANDY ROY
[2024-08-22] MEDS: furoSEMIDE 40MG VIAL IV SCH (01:00)
[2024-08-22] MEDS ORDERED: CYCL-309 PO (04:07)
[2024-08-22] MEDS ORDERED: CELE-125 PO (04:07)
[2024-08-22] MEDS ORDERED: POTA-202 PO (04:07)
[2024-08-22] MEDS ORDERED: METO-408 PO (04:07)
[2024-08-22] MEDS ORDERED: GABA-529 PO (04:07)
[2024-08-22] MEDS ORDERED: HYDROcodone/acetaMINOPHEN 10/325 MG TAB PO PRN (04:30)
[2024-08-22] MEDS ORDERED: acetaMINOPHEN WITH coDEINE 1 TAB TAB PO PRN (04:30)
[2024-08-22] MEDS ORDERED: ondanSETRON 4MG TABLET PO PRN (04:30)
[2024-08-22] MEDS ORDERED: CYCLOBENZAPRINE HCL 10 MG TABLET PO PRN (04:30)
[2024-08-22 06:03] LABS: BASOPHILS # (AUTO) 0.02 K/uL (0.00-0.20); BASOPHILS % (AUTO) 0.1 % (0.0-5.0); EOSINOPHILS # (AUTO) 0.03 K/uL (0.00-0.70); EOSINOPHILS % (AUTO) 0.2 % (0.0-8.0); HEMATOCRIT 25.2 % (42-54); IMMATURE GRANULOCYTE ABSOLUTE 0.14 K/uL (0-1); LYMPHOCYTES # (AUTO) 0.9 K/uL (1.0-4.8); LYMPHOCYTES % (AUTO) 6.2 % (21.0-51.0); MEAN CORPUSCULAR HEMOGLOBIN 26.8 pg (27.0-33.0); MEAN CORPUSCULAR HGB CONC 29.8 g/dL (32.0-36.0); MONOCYTES # (AUTO) 0.5 K/uL (0.1-1.0); MONOCYTES % (AUTO) 3.3 % (3.0-13.0); NEUTROPHILS # (AUTO) 12.6 K/uL (1.8-7.7); NEUTROPHILS % (AUTO) 89.2 % (40.0-77.0); PLATELET COUNT (AUTO) 255 K/uL (130-400); RED CELL DISTRIBUTION WIDTH 18.6 % (11.0-15.5); WHITE BLOOD COUNT (AUTO) 14.1 K/uL (4.8-10.8)
[2024-08-22 06:34] LABS: ALBUMIN 2.1 g/dL (3.5-5.0); BILIRUBIN,TOTAL 0.2 mg/dL (0.2-1.0); CREATININE 0.5 mg/dL (0.5-1.3); POTASSIUM 3.4 mmol/L (3.5-5.1); TOTAL PROTEIN, SERUM 6.3 g/dL (6.0-8.3)
--- NOTE | 2024-08-22 07:50 | EKG ---
[facility] Test Date: 2024-08-21 Test Time: 22:38:02 Pat Name: BEVERLY KLEIN Department: [facility] Room: 414 1 Gender: M Fixture Maker: [id number] : 1970 Requested By: RIOS VELIZ Order Number: [id number] Reading MD: Miriam Byrne Measurements Intervals [place] Rate: 81 P: 54 NM: 179 QRS: -83 QRSD: 158 T: 4 QT: 425 QTc: 494 Interpretive Statements Atrial-sensed ventricular-paced rhythm Compared to ECG 02/06/2024 21:39:16 No significant changes Electronically Signed On 08-23-2024 09:18:53 CDT by Miriam Byrne Please click the below link to view image of tracing.
[2024-08-22] MEDS ORDERED: PoTASSium chloRIDE 20MEQ/100ML 100 ML IV PRN (08:30)
[2024-08-22] MEDS ORDERED: PoTASSium chl 10% ELIXIR 20MEQ 20 MEQ/15 ML UDCUP PO PRN (08:30)
[2024-08-22] MEDS: AXITINIB 5 MG PO SCH (09:00)
--- NOTE | 2024-08-22 09:05 | HMCIMG ---
Exam Type: CHEST 1VW Clinical Information: chf Comparison: None Findings: Multiple old left-sided rib fractures are seen. Right MediPort catheter is seen in place. There is no pneumothorax. The lungs are clear of infiltrates. The heart is enlarged in size. The bony and soft tissue structures of the chest are unremarkable. Left cardiac pacemaker is noted with leads in place. Impression: Clear lungs.
[2024-08-22] MEDS: PoTASSium chloRIDE 20MEQ ER 20 MEQ ERTAB PO SCH (09:34)
[2024-08-22] MEDS: SACUBITRIL/VALSARTAN 1 EACH TABLET PO SCH (09:34)
[2024-08-22] MEDS: CeleCOXib 200 MG CAP PO SCH (09:35)
[2024-08-22] MEDS: PANTOPrazole 40 MG TAB DR PO SCH (09:35)
[2024-08-22] MEDS: GABApentin 100 MG CAPSULE PO SCH (09:35)
[2024-08-22] MEDS: metOPROLol sucCINATE 25 MG TAB.SR.24H PO SCH (09:35)
--- NOTE | 2024-08-22 10:02 | NUR ---
DCP: HOME SW spoke with desirae Blank [phone]. Pt currently resides alone in his home. Pt does not currently have any insecurities with food, alf, and/or utilities. Pt does not have a provider at this time however a nurse from his insurance goes over to the home once a month to check in on him. Pt has a wheelchair and shower chair at home. Pt is able to bath on his own however nephew states that there are some days that he asks for assistance in completing task. Pt drives himself to all appointments. PCP is Dr. Renu Hamilton and uses [facility] for any RX needs. At [place] pt would want to go home Addendum: 08/22/24 at 1006 by SLAVA SYKES SS Amended: Links added.
[2024-08-22] MEDS: PoTASSium chloRIDE 20MEQ ER 20 MEQ ERTAB PO PRN (14:08)
[2024-08-22] MEDS: morPHINE 2 MG SYG IVP PRN (15:45)
--- NOTE | 2024-08-22 16:12 | NUR ---
Nutrition consult per wt loss Reviewed labs, notes, and medications. Wt via standing scale, renal non-HD, K 3.4(L), Mg 1.4(L) per chart review. Pt reported she sees PCP as needed, no MVI QD, 100%PO intake, NKFA, BM 08/22/24 x 2, good appetite, UBW 168 lb, no dentures, denied texture modifications, denied swallowing or chewing difficulties. Recommendations: -Provide renal non HD + nepro qd with am tray -Fluid restriction per MD -Monitor PO intake -Encourage PO intake as able -Monitor BM -If no BM >3 days consider stool softener -Monitor electrolytes -Replenish electrolytes per protocol -Monitor wts -Reweigh as able -Order Vit D, vit b-12 labs to rule out deficiencies -Provide b-complex QD -Recommend Pt to follow up with PCP -Monitor goals of care RD to follow + available for consult per protocol Addendum: 08/22/24 at [address] Amended: Links added.
--- NOTE | 2024-08-22 17:55 | HMCSR ---
APPROVED REPORT EXAM: Two-dimensional and M-mode echocardiogram with Doppler and color Doppler. INDICATION ICD: Pericardial effusion I31.3 2D Dimensions RVDd4.8 cmLVEF(%)34.8 (>50%)LVEF(%, simp.)50 % IVSd0.9 (0.7-1.1cm)FS(%)17 %LA ESV INDEX (BP)46.22 mL/m2 LVDd6.4 (3.8-5.6cm)LA (2D)4.7 (1.6-4.0cm) PWd1.1 (0.7-1.1cm)Ao Root(2D)3.5 (2.0-3.7cm) IVSs1.2 cmLVOT diam2.6 (1.8-2.4cm) LVDs5.3 (2.5-4.0cm)IVC diam2.3 cm PWs1.2 cm Deformation Strain Apical 4-18.4 % Apical 2-16.5 % Apical 3-18.6 % Global Strain-17.8 % M-Mode Dimensions EPSS2.1 cm LA (MM)4.9 (1.6-4.0cm) Ao Root(MM)3.2 (2.0-3.7cm) Aortic Valve AoV Vmax2.0 m/Winter Peak GR16.1 mmHgLVOT Vmax1.5 m/s AoV VTI0.3 mAo Mean GR8.6 mmHgLVOT VTI0.27 m GABBI (VMAX)4.64 cm2AVA (VTI) 4.6 cm2 Mitral Valve MV E Vmax83.7 cm/sDECEL Ixna708 ms MV A Vmax77.4 cm/sP 1/2 T60 ms E/A ratio1.1MVA (PHT)3.7 cm2 TDI E/E' Medial9.3E/E' Lateral6.1 Medial E' Peak V8.96 cm/sLateral E' Peak V13.69 cm/s Pulmonary Valve PV Vmax1.3 m/sPV VTI0.27 mPV Mean GR4.4 mmHg PV Peak GR6.5 mmHg Tricuspid Valve TR Vmax1.5 m/sRAP (EST) 8 maWrHTBH20.7 mmHg TR Peak GR8.7 mmHg Left Ventricle The left ventricle is normal size. GLS 18.0%. There is normal left ventricular wall thickness. LVEF i s 45-50%. Indeterminate diastolic dysfunction. Right Ventricle The right ventricle is moderately dilated. The right ventricular systolic function is normal. Atria The left atrium is moderately dilated. Evidence of PFO by color doppler suggesting right to left shun t. The right atrium is borderline dilated. Aortic Valve The aortic valve is trieleaflet normal in structure. No aortic regurgitation is present. There is no aortic valvular stenosis. Mitral Valve The mitral valve is normal in structure. There is mild mitral valve regurgitation noted. There is no mitral valve stenosis. Tricuspid Valve The tricuspid valve is normal in structure. There is trace of tricuspid valve regurgitation noted. Pulmonic Valve The pulmonary valve is normal in structure. There is no pulmonic valvular regurgitation. Great Vessels The aortic root is normal in size. IVC is dilated and collapses >50% with inspiration. Pericardium There is trivial pericardial effusion. Other Information Quality : Adequate Conclusion The left ventricle is normal size. LVEF is 45-50%. Indeterminate diastolic dysfunction. The right ventricle is moderately dilated. The right ventricular systolic function is normal. The left atrium is moderately dilated. The right atrium is borderline dilated. Evidence of PFO by color doppler suggesting right to left shunt. There is mild mitral valve regurgitation noted. IVC is dilated and collapses >50% with inspiration. There is trivial pericardial effusion.
[2024-08-22] MEDS: HYDROcodone/acetaMINOPHEN 10/325 MG TAB PO PRN (20:07)
--- NOTE | 2024-08-22 20:41 | HP ---
HISTORY OF PRESENT ILLNESS: The patient of Dr. Hamilton came to the Emergency Room complaining of bilateral lower extremity edema and unbearable pain as well as some ill-defined palpitations. The patient is currently receiving antibiotics for osteomyelitis of his right thumb. 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 MEDICATIONS: Flexeril, prednisone, cephalexin, Tylenol No. 3, iron IV, nabumetone, pantoprazole, cetirizine, ondansetron, Jardiance, Inlyta, Entresto, metoprolol. ALLERGIES: No known drug allergies. PHYSICAL EXAMINATION: GENERAL: He is currently awake, alert and oriented to person, time, and place. Not in distress. Comfortable in bed. VITAL SIGNS: Vital signs in the chart. HEENT: Normocephalic, atraumatic. LUNGS: Clear to auscultation. HEART: S1, S2 are distant. ABDOMEN: Soft and nontender. EXTREMITIES: 1+ pitting edema bilaterally. The right hand has the first finger covered with surgical gauzes. NEUROLOGIC: Cranial nerves II-XII grossly preserved. LABORATORY DATA: WBC count 15, hemoglobin 7.7, platelets 258. Sodium 142, potassium 3.7, carbon dioxide 29, creatinine 0.6, calcium 10.2, total bilirubin 0.2, troponin 16, total protein 6.6, albumin 2.2. B-type natriuretic peptide is 228. ASSESSMENT AND PLAN: * Bilateral lower extremity edema. Continue with current diuretics. Continue with DVT prophylaxis. The patient has negative workup for congestive heart failure and decompensation at this time, most likely secondary to hypoalbuminemia. Continue with treatment as per Dr. Hamilton. * Renal cell carcinoma with bone metastasis. Continue with current treatment. * Leukocytosis. Continue with antibiotics. * Cancer-related pain. Continue with opioids. * The patient will resume all his home medications. Follow up with Dr. Hamilton, his primary care. DOS: 08/22/2024 TID: [id number] RECEIPT: [id number] MTDD
--- NOTE | 2024-08-22 21:55 | PN ---
PROGRESS NOTE PROGRESS NOTE DATE OF PROGRESS NOTE: 08/22/24 SUBJECTIVE: Patient still with leg edema VITAL SIGNS Vital Signs Date Time Temp Pulse Resp B/P (MAP) Pulse Ox O2 Delivery O2 Flow Rate FiO2 08/22/24 20:17 98.8 76 18 102/61 96 Room Air 21 08/22/24 09:35 0 PHYSICAL EXAM: GENERAL: He is currently awake, alert and oriented to person, time, and place. Not in distress. Comfortable in bed. VITAL SIGNS: Vital signs in the chart. HEENT: Normocephalic, atraumatic. LUNGS: Clear to auscultation. HEART: S1, S2 are distant. ABDOMEN: Soft and nontender. EXTREMITIES: 1+ pitting edema bilaterally. The right hand has the first finger covered with surgical gauzes. NEUROLOGIC: Cranial nerves II-XII grossly preserved. LABORATORY: Laboratory Result(s) Test 08/21/24 22:50 08/21/24 23:48 08/22/24 05:39 White Blood Count 15.7 K/uL (4.8-10.8) 14.1 K/uL (4.8-10.8) Red Blood Count 2.85 MIL/uL (4.50-6.20) 2.80 MIL/uL (4.50-6.20) Hemoglobin 7.7 g/dL (14.0-18.0) 7.5 g/dL (14.0-18.0) Hematocrit 26.1 % (42-54) 25.2 % (42-54) Mean Corpuscular Volume 91.6 fL (79-99) 90.0 fL (79-99) Mean Corpuscular Hemoglobin 27.0 pg (27.0-33.0) 26.8 pg (27.0-33.0) Mean Corpuscular Hemoglobin Concent 29.5 g/dL (32.0-36.0) 29.8 g/dL (32.0-36.0) Red Cell Distribution Width 18.9 % (11.0-15.5) 18.6 % (11.0-15.5) Platelet Count 258 K/uL (130-400) 255 K/uL (130-400) Mean Platelet Volume 9.5 fL (7.5-10.5) 9.6 fL (7.5-10.5) Immature Granulocyte % (Auto) 0.9 % (0-1) 1.0 % (0-1) Neutrophils (%) (Auto) 90.1 % (40.0-77.0) 89.2 % (40.0-77.0) Lymphocytes (%) (Auto) 5.7 % (21.0-51.0) 6.2 % (21.0-51.0) Monocytes (%) (Auto) 3.1 % (3.0-13.0) 3.3 % (3.0-13.0) Eosinophils (%) (Auto) 0.1 % (0.0-8.0) 0.2 % (0.0-8.0) Basophils (%) (Auto) 0.1 % (0.0-5.0) 0.1 % (0.0-5.0) Neutrophils # (Auto) 14.2 K/uL (1.8-7.7) 12.6 K/uL (1.8-7.7) Lymphocytes # (Auto) 0.9 K/uL (1.0-4.8) 0.9 K/uL (1.0-4.8) Monocytes # (Auto) 0.5 K/uL (0.1-1.0) 0.5 K/uL (0.1-1.0) Eosinophils # (Auto) 0.02 K/uL (0.00-0.70) 0.03 K/uL (0.00-0.70) Basophils # (Auto) 0.02 K/uL (0.00-0.20) 0.02 K/uL (0.00-0.20) Absolute Immature Granulocyte (auto 0.14 K/uL (0-1) 0.14 K/uL (0-1) Nucleated Red Blood Cells 0.0 % (0.0-0.19) 0.0 % (0.0-0.19) White Cell Morphology Comment CONSISTENT W/DIFF Platelet Morphology LARGE PLTS PRESENT Red Blood Cell Morphology ANISO 1+ Sodium Level 142 mmol/L (136-145) 139 mmol/L (136-145) Potassium Level 3.7 mmol/L (3.5-5.1) 3.4 mmol/L (3.5-5.1) Chloride Level 105 mmol/L (101-111) 104 mmol/L (101-111) Carbon Dioxide Level 29 mmol/L (21-32) 27 mmol/L (21-32) Blood Urea Nitrogen 10 mg/dL (7-18) 8 mg/dL (7-18) Creatinine 0.6 mg/dL (0.5-1.3) 0.5 mg/dL (0.5-1.3) Glomerular Filtration Rate Calc 116 mL/min (>90) 123 mL/min (>90) Random Glucose 109 mg/dL (70-105) 92 mg/dL (70-105) Total Calcium 10.2 mg/dL (8.5-10.1) 10.0 mg/dL (8.5-10.1) Magnesium Level 1.40 mg/dL (1.80-2.40) Total Bilirubin 0.2 mg/dL (0.2-1.0) 0.2 mg/dL (0.2-1.0) Direct Bilirubin 0.1 mg/dL (0.0-0.3) Aspartate Amino Transf (AST/SGOT) 8 U/L (10-37) 6 U/L (10-37) Alanine Aminotransferase (ALT/SGPT) 14 U/L (12-78) 13 U/L (12-78) Alkaline Phosphatase 141 U/L (50-136) 139 U/L (50-136) Troponin I High Sensitivity 16 ng/L (4-75) B-Type Natriuretic Peptide 228 pg/mL (0-100) Total Protein 6.6 g/dL (6.0-8.3) 6.3 g/dL (6.0-8.3) Albumin 2.2 g/dL (3.5-5.0) 2.1 g/dL (3.5-5.0) Urine Color YELLOW (YELLOW) Urine Appearance CLEAR (CLEAR) Urine pH 6.0 (5.0-8.0) Urine Specific [place] 1.038 (1.001-1.031) Urine Protein 50 mg/dL (NEGATIVE) Urine Glucose (UA) NEGATIVE mg/dL (NEGATIVE) Urine Ketones NEGATIVE mg/dL (NEGATIVE) Urine Occult Blood NEGATIVE (NEGATIVE) Urine Nitrate NEGATIVE (NEGATIVE) Urine Bilirubin NEGATIVE mg/dL (NEGATIVE) Urine Urobilinogen 3 mg/dL (0.2-1.0) Urine Leukocyte Esterase NEGATIVE Regino/uL Urine RBC 0-1 /HPF (0-1) Urine WBC 2-5 /HPF (0-1) Urine Bacteria None /HPF (None Seen) Vitamin B12 Level 8489 pg/mL (193-986) Vitamin D 25-Hydroxy 28.7 ng/mL (30.0-100.0) INPATIENT MEDS: Current Medications Medications Dose Ordered Sig/Helen Start Time Stop Time Status Last Admin Magnesium Sulfate 50 ml @ 0 mls/hr PROTOCOL 08/22/24 00:00 09/21/24 00:00 08/21/24 23:50 Furosemide 40 mg Q8H 08/22/24 01:00 09/21/24 00:59 08/22/24 09:35 Celecoxib 200 mg BID 08/22/24 09:00 09/21/24 08:59 08/22/24 20:07 Cyclobenzaprine HCl 10 mg TID PRN 08/22/24 04:30 09/21/24 04:29 Gabapentin 100 mg TID 08/22/24 09:00 09/21/24 08:59 08/22/24 20:07 Metoprolol Succinate 25 mg DAILY 08/22/24 09:00 09/21/24 08:59 08/22/24 09:35 Ondansetron HCl 4 mg Q6H6 PRN 08/22/24 04:30 09/21/24 04:29 Potassium Chloride 20 meq DAILY 08/22/24 09:00 09/21/24 08:59 08/22/24 09:34 Sacubitril/ Valsartan 1 each BID 08/22/24 09:00 09/21/24 08:59 08/22/24 09:34 Home Med BID 08/22/24 09:00 09/21/24 08:59 Pantoprazole Sodium 40 mg DAILY 08/22/24 09:00 09/21/24 08:59 08/22/24 09:35 Acetaminophen/ Hydrocodone Bitart 1 tab Q4H PRN 08/22/24 07:30 08/29/24 04:29 08/22/24 20:07 Potassium Chloride 100 ml @ 100 mls/hr AD PRN 08/22/24 08:30 09/21/24 08:29 Potassium Chloride 20 meq AD PRN 08/22/24 08:30 09/21/24 08:29 Potassium Chloride 20 meq AD PRN 08/22/24 08:30 09/21/24 08:29 08/22/24 14:08 Morphine Sulfate 2 mg Q4H PRN 08/22/24 15:30 08/29/24 15:29 08/22/24 15:45 PROBLEM LIST: (1) Finger osteomyelitis ICD Code: M86.9 - Osteomyelitis, unspecified (2) Renal cancer ICD Code: C64.9 - Malignant neoplasm of unspecified kidney, except renal pelvis (3) CHF exacerbation ICD Code: I50.9 - Heart failure, unspecified (4) Metastasis from malignant neoplasm of kidney ICD Code: C79.9 - Secondary malignant neoplasm of unspecified site; C64.9 - Malignant neoplasm of unspecified kidney, except renal pelvis (5) Kidney disease ICD Code: N28.9 - Disorder of kidney and ureter, unspecified PLAN: ASSESSMENT AND PLAN: * Bilateral lower extremity edema. Continue with current diuretics. Continue with DVT prophylaxis. The patient has negative workup for congestive heart failure and decompensation at this time, most likely secondary to hypoalbuminemia. Continue with treatment as per Dr. Guardado. * Renal cell carcinoma with bone metastasis. Continue with current treatment. * Leukocytosis. Continue with antibiotics. * Cancer-related pain. Continue with opioids. SUKH GUARDADO MD August 22, 2024 21:55
[2024-08-23 03:51] VITALS: BP 108/67; PULSE 81; RESP 19; TEMP 98.2
[2024-08-23 04:50] LABS: HEMATOCRIT 26.4 % (42-54); MEAN CORPUSCULAR HEMOGLOBIN 26.8 pg (27.0-33.0); MEAN CORPUSCULAR HGB CONC 29.2 g/dL (32.0-36.0); RED BLOOD CELL COUNT(AUTO) 2.87 MIL/uL (4.50-6.20); RED CELL DISTRIBUTION WIDTH 18.7 % (11.0-15.5); WHITE BLOOD COUNT (AUTO) 15.4 K/uL (4.8-10.8)
[2024-08-23 04:59] LABS: ALBUMIN 2.1 g/dL (3.5-5.0); BILIRUBIN,TOTAL 0.2 mg/dL (0.2-1.0); CREATININE 0.6 mg/dL (0.5-1.3); POTASSIUM 3.9 mmol/L (3.5-5.1); TOTAL PROTEIN, SERUM 6.4 g/dL (6.0-8.3)
[2024-08-23 08:00] VITALS: BP 104/58; PULSE 81; RESP 18; TEMP 97.6; O2SAT 95
--- NOTE | 2024-08-23 09:30 | NUR ---
PATIENT REFUSED TO WAIT FOR DISCHARGE PAPERS. INSTRUCTED TO FOLLOW UP WITH DR GUARDADO IN 1 WEEK. DISCHARGE PAPERWORK PENDING HOME MED CONTINUATION OR DISCONTINUE FROM DR GUARDADO. PATIENT SIGNED AMA AND WALKED DOWNSTAIRS ALERT AND ORIENTED X4.
--- NOTE | 2024-08-25 09:52 | NUR ---
Transitional Phone Call Spoke to patient, states he is "feeling tired and week." States he is continuing to take the medications at home and called his electrocardiogram technician - Dr. Tim Teixeira; electrocardiogram technician prescribed a stronger diuretic medication and will start taking it today. States he has a follow up appointment with PCP - Dr. Hamilton on 08/28/2024. No questions or concerns at this time.
--- NOTE | 2024-08-25 22:33 | DS ---
Discharge Summary DIAGNOSE(S): [Acute on chronic systolic heart failure] HOSPITAL COURSE SUMMARY: [Patient decompensated without diuretics and resolved back to his baseline and discharged on Lasix 40 mg b.i.d. along with potassium other medical problems remained stable including metastatic kidney cancer] TURBINE SUBASSEMBLER(S): [Cardiology] PROCEDURE(S)/TREATMENT(S): [None] PROBLEM(S): [] FOLLOW-UP TEST(S): [None] DISCHARGE INSTRUCTIONS: [Follow up with PCP 1-2 days] Home Meds Active Scripts Cyclobenzaprine HCl (Flexeril) 10 Mg Tab, 10 MG PO TID for muscle sstiffness, #14 TAB 0 Refills Prov:RODRIGO LEY ADMIN ASSISTANT 08/12/24 Acetaminophen with Codeine (Acetaminophen-Cod #3 Tablet) 300 Mg-30 Mg Tablet, 1- 2 TAB PO Q4H PRN for PAIN LEVEL 7 TO 10, #40 TAB 2 Refills Prov:CHICHO WHELAN Sr., MD 05/29/23 Reported Medications Cyclobenzaprine HCl (Cyclobenzaprine HCl) 10 Mg Tablet, 10 MG PO TID PRN for MUSCLE SPASMS 08/22/24 Potassium Chloride (Potassium Chloride) 20 Meq Tab.er.prt, 1 TAB PO DAILY 08/22/24 Celecoxib (Celecoxib) 200 Mg Capsule, 1 TAB PO BID 08/22/24 Gabapentin (Gabapentin) 100 Mg Capsule, 1 CAP PO TID 08/22/24 Metoprolol Succinate (Metoprolol Succinate) 25 Mg Tab.er.24h, 1 TAB PO DAILY 08/22/24 Iron Fum & Ps Cmp/Vit C & B (Integra Capsule) 125 Mg-40 Mg-3 Mg Capsule, 1 CAP PO DAILY 10/14/23 Hydrocodone/Acetaminophen (Hydrocodon-Acetaminophn 10-325) 10 Mg-325 Mg Tablet, 1 EACH PO Q6HPRN PRN for PAIN LEVEL 1 TO 5, TAB 05/30/23 Pantoprazole Sodium (Protonix) 40 Mg Granpkt.dr, 40 MG PO DAILY, PACK 05/30/23 Ondansetron HCl (Ondansetron HCl) 4 Mg Tablet, 4 MG PO Q6HPRN PRN for nausea, TAB 05/30/23 Axitinib (Inlyta) 5 Mg Tablet, 5 MG PO BID, TAB 05/25/23 Sacubitril/Valsartan (Entresto 97 mg-103 mg Tablet) 97 Mg-103 Mg Tablet, 1 EACH PO BID, TAB 05/25/23 Metoprolol Succinate (Metoprolol Succinate) 50 Mg Tab.er.24h, 50 MG PO DAILY, TAB 10/09/22 Discontinued Reported Medications Nabumetone (Nabumetone) 500 Mg Tablet, 500 MG PO BID, TAB 05/30/23 Cetirizine HCl (Cetirizine HCl) 10 Mg Tablet, 10 MG PO HS, TAB 05/30/23 Empagliflozin (Jardiance) 10 Mg Tablet, 10 MG PO DAILY, TAB 05/25/23 Discontinued Scripts Prednisone (Prednisone) 20 Mg Tablet, 1 TAB PO AD for 6 Days, #14 TAB 0 Refills TAKE 1 TAB BY MOUTH THREE TIMES PER DAY X3 DAYS, THEN TAKE 1 TAB BY MOUTH TWICE A DAY X2 DAYS, THEN TAKE 1 TAB BY MOUTH ONCE A DAY X1 DAY. Prov:LAN ONEAL MD 02/07/24 Cephalexin Monohydrate (Keflex) 500 Mg Cap, 500 MG PO BID for 7 Days, #14 CAP Prov:ZURI GROVER MD 10/24/23 SUKH GUARDADO MD August 25, 2024 22:33
== END 2024-08-23 09:30 | disposition left against medical advice (07) | DRG 291 ==
LOC: EDH 20:52 → EDHIP 08-22 00:44 → 4CH 08-22 03:24
PROVIDERS: ADMIT Internal Medicine; ATTEND Internal Medicine
DX: I11.0 Hypertensive heart disease with heart failure (principal); I50.23 Acute on chronic systolic (congestive) heart failure; C64.9 Malignant neoplasm of unspecified kidney, except renal pelvis; C79.51 Secondary malignant neoplasm of bone; E11.69 Type 2 diabetes mellitus with other specified complication; G89.3 Neoplasm related pain (acute) (chronic); Z53.29 Procedure and treatment not carried out because of patient's decision for other reasons; N28.9 Disorder of kidney and ureter, unspecified; E78.5 Hyperlipidemia, unspecified; Z82.49 Family history of ischemic heart disease and other diseases of the circulatory system
CPT/HCPCS: 36415; 71045; 80048; 80053; 80076; 81001; 82306; 82607; 83735; 83880; 84484; 85025; 85027; 93005; 93306; 93356; 96365; 99285; G0378; J1938; J1940; J2270; J3475

== ENCOUNTER 2024-10-08 16:19 | Observation (INO) | payer OTHER, MEDICARE ==
[~2024-10-08] VITALS: Ht 167.6 cm; Wt 71.7 kg
[~2024-10-08 16:19] MED LIST changes: +CELE-125 PO; -CEPH500B PO; -CETI10TA57 PO; +CYCL-309 PO; -EMPA10TA PO; +GABA-529 PO; +METO-408 PO; -NABU-141 PO; +POTA-202 PO; -PRED20TA3 PO
--- NOTE | 2024-10-08 17:00 | NUR ---
PATIENT ALSO NOTED WITH SWELLING AND PAIN TO RIGHT THUMB, STATES THIS IS A CHRONIC ISSUE AND IS NON COMPLIANT WITH ANTIBIOTICS
--- NOTE | 2024-10-08 17:00 | NUR ---
PATIENT ALSO NOTED WITH PAIN AND SWELLING TO PERINEUM, 11/26 Addendum: 10/08/24 at 1907 by LISAVAManuel PATIENT ALSO NOTED WITH REDNESS TO THE PERINIEM
[2024-10-08 17:11] LABS: BASOPHILS # (AUTO) 0.03 K/uL (0.00-0.20); BASOPHILS % (AUTO) 0.1 % (0.0-5.0); EOSINOPHILS # (AUTO) 0.03 K/uL (0.00-0.70); EOSINOPHILS % (AUTO) 0.1 % (0.0-8.0); HEMATOCRIT 25.9 % (42-54); IMMATURE GRANULOCYTE ABSOLUTE 0.16 K/uL (0-1); LYMPHOCYTES # (AUTO) 1.1 K/uL (1.0-4.8); LYMPHOCYTES % (AUTO) 4.8 % (21.0-51.0); MEAN CORPUSCULAR HEMOGLOBIN 25.7 pg (27.0-33.0); MEAN CORPUSCULAR HGB CONC 29.3 g/dL (32.0-36.0); MEAN CORPUSCULAR VOLUME 87.5 fL (79-99); MONOCYTES # (AUTO) 0.6 K/uL (0.1-1.0); MONOCYTES % (AUTO) 2.4 % (3.0-13.0); NEUTROPHILS # (AUTO) 21.1 K/uL (1.8-7.7); NEUTROPHILS % (AUTO) 91.9 % (40.0-77.0); PLATELET COUNT (AUTO) 282 K/uL (130-400); RED BLOOD CELL COUNT(AUTO) 2.96 MIL/uL (4.50-6.20); RED CELL DISTRIBUTION WIDTH 17.6 % (11.0-15.5); WHITE BLOOD COUNT (AUTO) 22.9 K/uL (4.8-10.8)
--- NOTE | 2024-10-08 17:12 | EKG ---
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
[2024-10-08 17:28] LABS: CREATININE 0.6 mg/dL (0.5-1.3); POTASSIUM 4.2 mmol/L (3.5-5.1)
[2024-10-08 17:33] LABS: BAND NEUTROPHILS % (MANUAL) 10 % (0-2); LYMPHOCYTES % (MANUAL) 7 % (22-44); MAN.DIFF COMMENT-IMPRESSION MANUAL DIFFERENTIAL; MONOCYTES % (MANUAL) 3 % (2-9); PLATELET MORPHOLOGY COMMENT ADEQUATE; SEGMENTED NEUTROPHILS % 80 % (40-70); TOTAL CELLS COUNTED 100; WBC MORPHOLOGY CONSISTENT W/DIFF
[2024-10-08 17:39] LABS: ALBUMIN 2.3 g/dL (3.5-5.0); BILIRUBIN,DIRECT 0.1 mg/dL (0.0-0.3); BILIRUBIN,TOTAL 0.4 mg/dL (0.2-1.0); TOTAL PROTEIN, SERUM 6.5 g/dL (6.0-8.3)
--- NOTE | 2024-10-08 17:45 | HMCIMG ---
CT ABDOMEN WITHOUT CONTRAST. CT PELVIS WITHOUT CONTRAST. INDICATION: Pelvic pain TECHNIQUE: Routine transaxial imaging using 5 mm slice thickness through the abdomen and pelvis without the administration of IV contrast. Thin slice reconstructions are also provided. Coronal and sagittal reformatted images acquired for interpretation. CT was performed with one or more of the following dose reduction techniques: Automated exposure control, adjustment of the mA and/or kV according to patient size, or use of iterative reconstruction technique. COMPARISON: 10/24/2023 FINDINGS: ON NONCONTRAST IMAGING: ABDOMEN: Heart size is normal. Visible lung bases are clear. Chronic posterior left lower rib fracture deformities. No abnormal left renal calcifications, hydronephrosis, perinephric inflammation, or proximal hydroureter detected. 19 cm heterogeneously attenuating partially-calcific right renal mass arising off the upper pole. The liver is normal in size and smooth in contour without biliary duct dilation. The spleen is normal in size and attenuation. The gallbladder appears normal. The pancreas appears normal without pancreatic duct dilation. The adrenal glands appear normal. No significant abdominal, retrocrural or retroperitoneal adenopathy noted. No evidence for intra-abdominal free air or organized fluid collection. Mild calcific plaque is noted along the abdominal aortic and iliac vessel franco without aneurysmal dilation. PELVIS: No abnormal calcifications within the urinary bladder or distal ureters. No evidence for free air or organized pelvic fluid collection. No significant pelvic adenopathy detected. Visualized small and large bowel loops appear unremarkable. Terminal ileum appears unremarkable. The appendix appears normal. Visible osseous structures are intact. IMPRESSION: 19 cm right renal malignancy.
--- NOTE | 2024-10-08 17:47 | HMCIMG ---
PORTABLE CHEST RADIOGRAPH INDICATION: gbw COMPARISON: 08/21/2024 FINDINGS: Left sided dual chamber pacer and continuous leads remain in customary position. Heart size is normal. The pulmonary vascularity and braden appear normal. No abnormal pulmonary parenchymal opacity or consolidation identified. No significant pleural effusion noted. No pneumothorax detected. Multiple chronic posterior left rib fracture deformities. IMPRESSION: No radiographic evidence for any acute cardiopulmonary process.
[2024-10-08] MEDS: morPHINE 4 MG SYG IVP ONE (18:35)
[2024-10-08] MEDS: cefTRIAXone 2GM VIAL IVPB ONE (18:35)
[2024-10-08] MEDS: ondanSETRON 4MG INJ IVP ONE (18:35)
[2024-10-08] MEDS: 0.9% NACL 500ML IV.SOLN 500 ML IV ONE (18:35)
--- NOTE | 2024-10-08 18:38 | ERN ---
ED Note History of Present Illness Stated Complaint: TESTICULAR CYSTS, HEADACHE, FATIGUE Chief Complaint: Multiple Complaints Time Seen by MD: 16:45 Dictation: 53-year-old male presenting to the emergency department history of metastatic cancer on hospice recently with worsening generalized weakness, reported some boils to the pelvic area and not feeling well history of heart failure with low ejection fraction Allergies: Coded Allergies: No Known Drug Allergies (Unverified Allergy, Unknown, 04/20/21) Home Meds Active Scripts Cyclobenzaprine HCl (Flexeril) 10 Mg Tab, 10 MG PO TID for muscle sstiffness, #14 TAB 0 Refills Prov:RODRIGO LEY MANAGER MOBILE 08/12/24 Acetaminophen with Codeine (Acetaminophen-Cod #3 Tablet) 300 Mg-30 Mg Tablet, 1- 2 TAB PO Q4H PRN for PAIN LEVEL 7 TO 10, #40 TAB 2 Refills Prov:CHICHO WHELAN Sr., MD 05/29/23 Reported Medications Cyclobenzaprine HCl (Cyclobenzaprine HCl) 10 Mg Tablet, 10 MG PO TID PRN for MUSCLE SPASMS 08/22/24 Potassium Chloride (Potassium Chloride) 20 Meq Tab.er.prt, 1 TAB PO DAILY 08/22/24 Celecoxib (Celecoxib) 200 Mg Capsule, 1 TAB PO BID 08/22/24 Gabapentin (Gabapentin) 100 Mg Capsule, 1 CAP PO TID 08/22/24 Metoprolol Succinate (Metoprolol Succinate) 25 Mg Tab.er.24h, 1 TAB PO DAILY 08/22/24 Iron Fum & Ps Cmp/Vit C & B (Integra Capsule) 125 Mg-40 Mg-3 Mg Capsule, 1 CAP PO DAILY 10/14/23 Hydrocodone/Acetaminophen (Hydrocodon-Acetaminophn 10-325) 10 Mg-325 Mg Tablet, 1 EACH PO Q6HPRN PRN for PAIN LEVEL 1 TO 5, TAB 05/30/23 Pantoprazole Sodium (Protonix) 40 Mg Granpkt.dr, 40 MG PO DAILY, PACK 05/30/23 Ondansetron HCl (Ondansetron HCl) 4 Mg Tablet, 4 MG PO Q6HPRN PRN for nausea, TAB 05/30/23 Axitinib (Inlyta) 5 Mg Tablet, 5 MG PO BID, TAB 05/25/23 Sacubitril/Valsartan (Entresto 97 mg-103 mg Tablet) 97 Mg-103 Mg Tablet, 1 EACH PO BID, TAB 05/25/23 Metoprolol Succinate (Metoprolol Succinate) 50 Mg Tab.er.24h, 50 MG PO DAILY, TAB 10/09/22 Past Medical History Past Medical History: Cancer, Heart Disease, Hypertension Additional Past Medical Hx: HX OF BONE CA; HX OF RENAL CA, LUNG CANCER,LEFT FX RIB Surgical History: Other Surgical History Other: WRIST LEFT SX; PORTACATH Family History: HTN Social History: Smokers, Lives with family Review of System Dictation Constitutional: Per HPI Eyes: Negative for injury, pain,redness, and discharge ENT: Negative for injury,pain or swelling Cardiovascular: Negative for chest pain, palpitations, and edema Respiratory: Negative for shortness of breath, cough, and wheezing, Abdomen/GI: Negative for abdominal pain, nausea, vomiting, diarrhea, and constipation Back: Negative for injury and pain : Per HPI MS/Extremity: Negative for injury and deformity Skin: Negative for rash, and discoloration Neuro: Negative for headache, weakness, numbness, tingling, and seizure Psych: Negative for suicide ideation, homicidal ideation, and hallucinations Initial Vital Sign VS Vital Signs Date Time Temp Pulse Resp B/P (MAP) Pulse Ox O2 Delivery O2 Flow Rate FiO2 10/08/24 16:20 98.8 107 16 108/69 97 Room Air 0 10/08/24 16:35 21 Physical Exam Dictation General: awake, alert, appears weak and ill, pale Head/Face: Normocephalic, atraumatic Eyes: PERRL, EOMI, vision at baseline ENT: oral cavity clear, TMs clear, no signs of infection Neck: Trachea midline, supple, no nuchal rigidity Cardiovascular: RRR, normal S1/S2, No MRGs, no JVD Respiratory: CTAB, no respiratory distress, No rales or wheezes Abdomen: Soft, nontender but distended, cellulitis to the pelvic area Skin: Warm, dry, normal turgor, no rash MS/Extremity: Pulses equal, no cyanosis, neurovascular intact, FROM Neuro: COAx4, GCS 15, strength 5/5, CN 2-12 intact, normal cerebellar exam, normal gait, Psych: Normal behavior, mood, and affect normal Results (Laboratory/Radiology) Laboratory/Radiology Laboratory Tests Test 6/22/25 16:39 White Blood Count 22.9 K/uL (4.8-10.8) H Red Blood Count 2.96 MIL/uL (4.50-6.20) L Hemoglobin 7.6 g/dL (14.0-18.0) L Hematocrit 25.9 % (42-54) L Mean Corpuscular Volume 87.5 fL (79-99) Mean Corpuscular Hemoglobin 25.7 pg (27.0-33.0) L Mean Corpuscular Hemoglobin Concent 29.3 g/dL (32.0-36.0) L Red Cell Distribution Width 17.6 % (11.0-15.5) H Platelet Count 282 K/uL (130-400) Mean Platelet Volume 9.9 fL (7.5-10.5) Immature Granulocyte % (Auto) 0.7 % (0-1) Neutrophils (%) (Auto) 91.9 % (40.0-77.0) H Lymphocytes (%) (Auto) 4.8 % (21.0-51.0) L Monocytes (%) (Auto) 2.4 % (3.0-13.0) L Eosinophils (%) (Auto) 0.1 % (0.0-8.0) Basophils (%) (Auto) 0.1 % (0.0-5.0) Neutrophils # (Auto) 21.1 K/uL (1.8-7.7) H Lymphocytes # (Auto) 1.1 K/uL (1.0-4.8) Monocytes # (Auto) 0.6 K/uL (0.1-1.0) Eosinophils # (Auto) 0.03 K/uL (0.00-0.70) Basophils # (Auto) 0.03 K/uL (0.00-0.20) Absolute Immature Granulocyte (auto 0.16 K/uL (0-1) Segmented Neutrophils % 80 % (40-70) H Band Neutrophils % 10 % (0-2) H Lymphocytes % (Manual) 7 % (22-44) L Monocytes % (Manual) 3 % (2-9) Nucleated Red Blood Cells 0.0 % (0.0-0.19) Differential Comment MANUAL DIFFERENTIAL White Cell Morphology Comment CONSISTENT W/DIFF Platelet Morphology Comment ADEQUATE Red Blood Cell Morphology See comments Sodium Level 135 mmol/L (136-145) L Potassium Level 4.2 mmol/L (3.5-5.1) Chloride Level 99 mmol/L (101-111) L Carbon Dioxide Level 27 mmol/L (21-32) Blood Urea Nitrogen 11 mg/dL (7-18) Creatinine 0.6 mg/dL (0.5-1.3) Glomerular Filtration Rate Calc 116 mL/min (>90) Random Glucose 96 mg/dL (70-105) Lactic Acid Level 2.7 mmol/L (0.8-2.5) H Total Calcium 11.2 mg/dL (8.5-10.1) H Total Bilirubin 0.4 mg/dL (0.2-1.0) Direct Bilirubin 0.1 mg/dL (0.0-0.3) Aspartate Amino Transf (AST/SGOT) 13 U/L (10-37) Alanine Aminotransferase (ALT/SGPT) 23 U/L (12-78) Alkaline Phosphatase 150 U/L (50-136) H Ammonia 21 umol/L (11-32) Total Creatine Kinase 15 U/L (21-232) #L Troponin I High Sensitivity 18 ng/L (4-75) XX-Usx-N-Type Natriuretic Peptide 673 pg/mL (0-125) H Total Protein 6.5 g/dL (6.0-8.3) Albumin 2.3 g/dL (3.5-5.0) L Labs Reviewed?: Yes EKG Comment: AV paced paced rate of 60, no STEMI ED Course ED Course Orders Procedure Category Date Status Time 12 Lead Ekg Tracing- EKG 10/08/24 Complete Technical 16:57 Ammonia LAB 10/08/24 Complete 16:57 Basic Metabolic Panel LAB 10/08/24 Complete 16:57 Blood Cult MIGDALIA 10/08/24 In Process 16:57 Cbc With Differential LAB 10/08/24 Complete 16:57 Hepatic Function Panel LAB 10/08/24 Complete 16:57 Creatine Kinase, Total LAB 10/08/24 Complete 16:57 Lactic Acid LAB 10/08/24 Complete 16:57 Urinalysis Profile LAB 10/08/24 Logged 16:57 Troponin I High LAB 10/08/24 Complete Sensitivity 16:57 Chest 1vw RAD 10/08/24 Resulted 16:57 Ct Abd/Pel Wo Con CT 10/08/24 Resulted Renal/Appy 16:57 Probnp LAB 10/08/24 Complete 16:57 Manual Differential LAB 10/08/24 Complete 16:39 Ceftriaxone 2gm Vial PHA 10/08/24 Complete (Rocephin 2gm Inj) 18:30 Morphine 4mg Syg PHA 10/08/24 Complete (Morphine 4mg Syg) 18:30 Ondansetron 4mg Inj PHA 10/08/24 Complete (Zofran 4mg Inj) 18:30 0.9% Nacl 500ml PHA 10/08/24 Complete Iv.Soln (Ns 500ml 18:30 Morphine 2mg Syg PHA 10/08/24 Complete (Morphine 2mg Syg) 18:20 Current Medications Medications (Trade) Dose Ordered Sig/Helen Route PRN Reason Start Time Stop Time Status Last Admin Dose Admin Ceftriaxone Sodium (Rocephin 2gm Inj) 2 gm ONCE ONCE IVPB 10/08/24 18:30 10/08/24 18:31 DC Morphine Sulfate (morPHINE 2MG SYG) 2 mg STK-MED ONCE .ROUTE 10/08/24 18:20 10/08/24 18:20 DC Morphine Sulfate (morPHINE 4MG SYG) 4 mg ONCE ONCE IVP 10/08/24 18:30 10/08/24 18:31 DC Ondansetron HCl (zoFRAN 4MG INJ) 4 mg ONCE ONCE IVP 10/08/24 18:30 10/08/24 18:31 DC Sodium Chloride 500 ml @ 0 mls/hr ONCE ONCE IV 10/08/24 18:30 10/08/24 18:31 DC Vital Signs Date Time Temp Pulse Resp B/P (MAP) Pulse Ox O2 Delivery O2 Flow Rate FiO2 10/08/24 17:51 98.2 80 18 108/61 96 Room Air* 0 10/08/24 16:35 98.2 90 18 113/70 96 Room Air* 0 21 10/08/24 16:20 98.8 107 16 108/69 97 Room Air 0 Medical Decision Making MDM MDM: Differential diagnosis: Rationale: Tests considered and ordered secondary to shared decision making include: labs, ECG and radiology Previous outside records reviewed: Old ER visits. Risk of complication and/or morbidity or mortality of patient management: None Medications-Per medication reconciliation Need for hospitalization: Patient does meet criteria for hospitalization. Need for emergency major/minor surgery: No There are no social concerns with this patient. Prescription drug management Prescriptions will include symptomatic care Patient's prior external medical records from other ER visits were reviewed by me as indicated. Prior testing and results from previous visits were reviewed. Prior tests were taken into account with medical decision making and resource utilization, independent historian/historians were used to obtain complete medical history. I independently interpreted the test that were performed, results were reviewed by me and considered findings on radiology if ordered. Medical management and examination interpretation discussions were had by me with other qualified healthcare professionals as indicated for the patient's care. 53-year-old male metastatic cancer end-stage with generalized weakness and leukocytosis concern for cellulitis and sepsis, started on antibiotics admitting for further care DX & DISP Disposition: Observation Departure Impression: Primary Impression: Cellulitis and abscess of buttock Additional Impressions: Sepsis, Metastatic cancer Condition: Stable Referrals: SUKH GUARDADO MD (PCP) KELLY CHESTER MD Oct 08, 2024 18:38
[2024-10-08] MEDS: morPHINE 2 MG SYG ONE (19:05)
--- NOTE | 2024-10-08 20:57 | NUR ---
PATIENT SITTING UP ATE SANDWICH AND DRINKING FLUIDS AT THIS TIME.
[2024-10-08 21:13] LABS: APPEARANCE,URINE CLEAR (CLEAR); BILIRUBIN,URINE NEGATIVE (NEGATIVE); COLOR,URINE LIGHT-YELLOW (YELLOW); GLUCOSE, URINE (UA) NEGATIVE (NEGATIVE); KETONES,URINE NEGATIVE (NEGATIVE); LEUKOCYTE ESTERASE ,URINE NEGATIVE Leu/uL (NEGATIVE); NITRATE,URINE NEGATIVE (NEGATIVE); OCCULT BLOOD,URINE NEGATIVE (NEGATIVE); PH,URINE 6.5 (5.0-8.0); PROTEIN,URINE NEGATIVE (NEGATIVE); UROBILINOGEN,URINE 0.2 mg/dL (0.2-1.0)
[2024-10-08 21:15] LABS: ADD UA MICROSCOPIC NO
[2024-10-08] MEDS: ZOSYN 3.375GM +NS 50ML IVPB SCH (21:35)
[2024-10-08] MEDS: Solu-medROL 125MG VIAL IVP ONE (21:35)
--- NOTE | 2024-10-08 22:29 | HP ---
HISTORY AND PHYSICAL NOTE DATE OF CONSULTATION: 10/08/24 REASON FOR CONSULTATION: Fever HISTORY OF PRESENT ILLNESS: 53-year-old male presenting to the emergency department history of metastatic cancer on hospice recently with worsening generalized weakness, reported some boils to the pelvic area and not feeling well history of heart failure with low ejection fraction Allergies: Coded Allergies: No Known Drug Allergies (Unverified Allergy, Unknown, 04/20/21) Home Meds Active Scripts Cyclobenzaprine HCl (Flexeril) 10 Mg Tab, 10 MG PO TID for muscle sstiffness, #14 TAB 0 Refills Prov:RODRIGO LEY COUNSELOR MARRI[employer] AND FAMILY 08/12/24 Acetaminophen with Codeine (Acetaminophen-Cod #3 Tablet) 300 Mg-30 Mg Tablet, 1- 2 TAB PO Q4H PRN for PAIN LEVEL 7 TO 10, #40 TAB 2 Refills Prov:CHICHO WHELAN Sr., MD 05/29/23 Reported Medications Cyclobenzaprine HCl (Cyclobenzaprine HCl) 10 Mg Tablet, 10 MG PO TID PRN for MUSCLE SPASMS 08/22/24 Potassium Chloride (Potassium Chloride) 20 Meq Tab.er.prt, 1 TAB PO DAILY 08/22/24 Celecoxib (Celecoxib) 200 Mg Capsule, 1 TAB PO BID 08/22/24 Gabapentin (Gabapentin) 100 Mg Capsule, 1 CAP PO TID 08/22/24 Metoprolol Succinate (Metoprolol Succinate) 25 Mg Tab.er.24h, 1 TAB PO DAILY 08/22/24 Iron Fum & Ps Cmp/Vit C & B (Integra Capsule) 125 Mg-40 Mg-3 Mg Capsule, 1 CAP PO DAILY 10/14/23 Hydrocodone/Acetaminophen (Hydrocodon-Acetaminophn 10-325) 10 Mg-325 Mg Tablet, 1 EACH PO Q6HPRN PRN for PAIN LEVEL 1 TO 5, TAB 05/30/23 Pantoprazole Sodium (Protonix) 40 Mg Granpkt.dr, 40 MG PO DAILY, PACK 05/30/23 Ondansetron HCl (Ondansetron HCl) 4 Mg Tablet, 4 MG PO Q6HPRN PRN for nausea, TAB 05/30/23 Axitinib (Inlyta) 5 Mg Tablet, 5 MG PO BID, TAB 05/25/23 Sacubitril/Valsartan (Entresto 97 mg-103 mg Tablet) 97 Mg-103 Mg Tablet, 1 EACH PO BID, TAB 05/25/23 Metoprolol Succinate (Metoprolol Succinate) 50 Mg Tab.er.24h, 50 MG PO DAILY, T AB 10/09/22 Past Medical History Past Medical History: Cancer, Heart Disease, Hypertension Additional Past Medical Hx: HX OF BONE CA; HX OF RENAL CA, LUNG CANCER,LEFT FX RIB Surgical History: Other Surgical History Other: WRIST LEFT SX; PORTACATH Family History: HTN Social History: Smokers, Lives with family Review of System Dictation Constitutional: Per HPI Eyes: Negative for injury, pain,redness, and discharge ENT: Negative for injury,pain or swelling Cardiovascular: Negative for chest pain, palpitations, and edema Respiratory: Negative for shortness of breath, cough, and wheezing, Abdomen/GI: Negative for abdominal pain, nausea, vomiting, diarrhea, and constipation Back: Negative for injury and pain : Per HPI MS/Extremity: Negative for injury and deformity Skin: Negative for rash, and discoloration Neuro: Negative for headache, weakness, numbness, tingling, and seizure Psych: Negative for suicide ideation, homicidal ideation, and hallucinations Initial Vital Sign VS Vital Signs Date Time Temp Pulse Resp B/P (MAP) Pulse Ox O2 Delivery O2 Flow Rate FiO2 10/08/24 16:20 98.8 107 16 108/69 97 Room Air 0 10/08/24 16:35 21 ALLERGIES: Coded Allergies: No Known Drug Allergies (Unverified Allergy, Unknown, 04/20/21) HOME MEDS: Active Scripts Cyclobenzaprine HCl (Flexeril) 10 Mg Tab, 10 MG PO TID for muscle sstiffness, #14 TAB 0 Refills Prov:RODRIGO LEY COUNSELOR [employer] FAMILY 08/12/24 Acetaminophen with Codeine (Acetaminophen-Cod #3 Tablet) 300 Mg-30 Mg Tablet, 1- 2 TAB PO Q4H PRN for PAIN LEVEL 7 TO 10, #40 TAB 2 Refills Prov:CHICHO WHELAN Sr., MD 05/29/23 Reported Medications Cyclobenzaprine HCl (Cyclobenzaprine HCl) 10 Mg Tablet, 10 MG PO TID PRN for MUSCLE SPASMS 08/22/24 Potassium Chloride (Potassium Chloride) 20 Meq Tab.er.prt, 1 TAB PO DAILY 08/22/24 Celecoxib (Celecoxib) 200 Mg Capsule, 1 TAB PO BID 08/22/24 Gabapentin (Gabapentin) 100 Mg Capsule, 1 CAP PO TID 08/22/24 Metoprolol Succinate (Metoprolol Succinate) 25 Mg Tab.er.24h, 1 TAB PO DAILY 08/22/24 Iron Fum & Ps Cmp/Vit C & B (Integra Capsule) 125 Mg-40 Mg-3 Mg Capsule, 1 CAP PO DAILY 10/14/23 Hydrocodone/Acetaminophen (Hydrocodon-Acetaminophn 10-325) 10 Mg-325 Mg Tablet, 1 EACH PO Q6HPRN PRN for PAIN LEVEL 1 TO 5, TAB 05/30/23 Pantoprazole Sodium (Protonix) 40 Mg Granpkt.dr, 40 MG PO DAILY, PACK 05/30/23 Ondansetron HCl (Ondansetron HCl) 4 Mg Tablet, 4 MG PO Q6HPRN PRN for nausea, TAB 05/30/23 Axitinib (Inlyta) 5 Mg Tablet, 5 MG PO BID, TAB 05/25/23 Sacubitril/Valsartan (Entresto 97 mg-103 mg Tablet) 97 Mg-103 Mg Tablet, 1 EACH PO BID, TAB 05/25/23 Metoprolol Succinate (Metoprolol Succinate) 50 Mg Tab.er.24h, 50 MG PO DAILY, TAB 10/09/22 INPATIENT MEDS: Current Medications Medications Dose Ordered Sig/Helen Start Time Stop Time Status Last Admin Piperacillin Sod/ Tazobactam Sod 3.375 gm Q8H 10/08/24 21:00 10/18/24 20:59 10/08/24 21:35 VITAL SIGNS Vital Signs Date Time Temp Pulse Resp B/P (MAP) Pulse Ox O2 Delivery O2 Flow Rate FiO2 10/08/24 22:17 98.4 81 18 102/62 97 Room Air* 0 10/08/24 20:38 91 18 104/51 99 Room Air* 0 10/08/24 19:23 18 101/58 Room Air* 0 10/08/24 17:51 98.2 80 18 108/61 96 Room Air* 0 10/08/24 16:35 98.2 90 18 113/70 96 Room Air* 0 10/08/24 16:20 98.8 107 16 108/69 97 Room Air 0 PHYSICAL EXAM Physical Exam Dictation General: awake, alert, appears weak and ill, pale Head/Face: Normocephalic, atraumatic Eyes: PERRL, EOMI, vision at baseline ENT: oral cavity clear, TMs clear, no signs of infection Neck: Trachea midline, supple, no nuchal rigidity Cardiovascular: RRR, normal S1/S2, No MRGs, no JVD Respiratory: CTAB, no respiratory distress, No rales or wheezes Abdomen: Soft, nontender but distended, cellulitis to the pelvic area Skin: Warm, dry, normal turgor, no rash MS/Extremity: Pulses equal, no cyanosis, neurovascular intact, FROM Neuro: COAx4, GCS 15, strength 5/5, CN 2-12 intact, normal cerebellar exam, normal gait, Psych: Normal behavior, mood, and affect normal LABORATORY RESULTS Laboratory Tests 10/08/24 16:39: White Blood Count 22.9, Red Blood Count 2.96, Hemoglobin 7.6, Hematocrit 25.9, Mean Corpuscular Volume 87.5, Mean Corpuscular Hemoglobin 25.7, Mean Corpuscular Hemoglobin Concent 29.3, Red Cell Distribution Width 17.6, Platelet Count 282, Mean Platelet Volume 9.9, Immature Granulocyte % (Auto) 0.7, Neutrophils (%) (Auto) 91.9, Lymphocytes (%) (Auto) 4.8, Monocytes (%) (Auto) 2.4, Eosinophils (%) (Auto) 0.1, Basophils (%) (Auto) 0.1, Neutrophils # (Auto) 21.1, Lymphocytes # (Auto) 1.1, Monocytes # (Auto) 0.6, Eosinophils # (Auto) 0.03, Basophils # (Auto) 0.03, Absolute Immature Granulocyte (auto 0.16, Segmented Neutrophils % 80, Band Neutrophils % 10, Lymphocytes % (Manual) 7, Monocytes % (Manual) 3, Nucleated Red Blood Cells 0.0, Differential Comment MANUAL DIFFERENTIAL, White Cell Morphology Comment CONSISTENT W/DIFF, Platelet Morphology Comment ADEQUATE, Red Blood Cell Morphology See comments, Sodium Level 135, Potassium Level 4.2, Chloride Level 99, Carbon Dioxide Level 27, Blood Urea Nitrogen 11, Creatinine 0.6, Glomerular Filtration Rate Calc 116, Random Glucose 96, Lactic Acid Level 2.7, Total Calcium 11.2, Total Bilirubin 0.4, Direct Bilirubin 0.1, Aspartate Amino Transf (AST/SGOT) 13, Alanine Aminotransferase (ALT/SGPT) 23, Alkaline Phosphatase 150, Ammonia 21, Total Creatine Kinase 15, Troponin I High Sensitivity 18, ZM-Zmc-[id number]-Type Natriuretic Peptide 673, Total Protein 6.5, Albumin 2.3 10/08/24 20:56: Urine Color LIGHT-YELLOW, Urine Appearance CLEAR, Urine pH 6.5, Urine Specific [place] 1.012, Urine Protein NEGATIVE, Urine Glucose (UA) NEGATIVE, Urine Ketones NEGATIVE, Urine Occult Blood NEGATIVE, Urine Nitrate NEGATIVE, Urine Bilirubin NEGATIVE, Urine Urobilinogen 0.2, Urine Leukocyte Esterase NEGATIVE 10/08/24 21:03: Lactic Acid Level 2.5 PROBLEM LIST: (1) Cellulitis of leg ICD Codes: L03.119 - Cellulitis of unspecified part of limb (2) Congestive heart failure ICD Codes: I50.9 - Heart failure, unspecified (3) Cardiomyopathy ICD Codes: I42.9 - Cardiomyopathy, unspecified (4) Hypotension ICD Codes: I95.9 - Hypotension, unspecified PLAN Admit IV antibiotics and monitor prognosis [place] SUKH GUARDADO MD Oct 08, 2024 22:29
[2024-10-08] MEDS: HYDROcodone/acetaMINOPHEN 10/325 MG TAB PO PRN (22:42)
[2024-10-08 22:48] VITALS: BP 112/67; PULSE 87; RESP 18; TEMP 98.4
[2024-10-08 23:23] VITALS: O2SAT 97
[2024-10-08] MEDS ORDERED: CALC500T13 PO (23:35)
[2024-10-08] MEDS: CALCIUM CARB 500MG CHEW TAB PO PRN (23:48)
[2024-10-09 04:26] VITALS: BP 101/59; PULSE 67; RESP 18; TEMP 98.4
[2024-10-09 05:37] LABS: HEMATOCRIT 24.2 % (42-54); MEAN CORPUSCULAR HEMOGLOBIN 25.7 pg (27.0-33.0); MEAN CORPUSCULAR HGB CONC 29.8 g/dL (32.0-36.0); MEAN CORPUSCULAR VOLUME 86.4 fL (79-99); RED BLOOD CELL COUNT(AUTO) 2.8 MIL/uL (4.50-6.20); RED CELL DISTRIBUTION WIDTH 17.6 % (11.0-15.5); WHITE BLOOD COUNT (AUTO) 19.3 K/uL (4.8-10.8)
[2024-10-09 05:44] LABS: CREATININE 0.7 mg/dL (0.5-1.3); POTASSIUM 4.9 mmol/L (3.5-5.1)
[2024-10-09 08:00] VITALS: O2SAT 98
--- NOTE | 2024-10-09 08:00 | NUR ---
note pt dc at this time, IV discontinued, educated pt on dc information and follow up, educated pt on new abx regimen
--- NOTE | 2024-10-09 08:08 | DS ---
Discharge Summary DIAGNOSE(S): [Cellulitis leg] HOSPITAL COURSE SUMMARY: [Patient with terminal congestive heart failure metastatic renal malignancy and cachexia and functional decline on hospice presented with cellulitis kept overnight in observation discussed again the goals and plan given his terminal nature of multiple comorbid conditions and patient will go back into hospice] [employer] PROFESSIONAL(S): [None] PROCEDURE(S)/TREATMENT(S): [None] PROBLEM(S): [] FOLLOW-UP TEST(S): [None] DISCHARGE INSTRUCTIONS: [Augmentin 875 b.i.d. for seven days] Home Meds Active Scripts Cyclobenzaprine HCl (Flexeril) 10 Mg Tab, 10 MG PO TID for muscle sstiffness, #14 TAB 0 Refills Prov:RODRIGO LEY TRIAGE TECHNICIAN 08/12/24 Acetaminophen with Codeine (Acetaminophen-Cod #3 Tablet) 300 Mg-30 Mg Tablet, 1- 2 TAB PO Q4H PRN for PAIN LEVEL 7 TO 10, #40 TAB 2 Refills Prov:CHICHO WHELAN Sr., MD 05/29/23 Reported Medications Calcium Carbonate (Tums 500 mg Chew Tab) 200 Mg Calcium (500 Mg) Tab.chew, 1 TAB PO Q4HPRN PRN for HEARTBURN, TAB.CHEW 10/08/24 Cyclobenzaprine HCl (Cyclobenzaprine HCl) 10 Mg Tablet, 10 MG PO TID PRN for MUSCLE SPASMS 08/22/24 Potassium Chloride (Potassium Chloride) 20 Meq Tab.er.prt, 1 TAB PO DAILY 08/22/24 Celecoxib (Celecoxib) 200 Mg Capsule, 1 TAB PO BID 08/22/24 Gabapentin (Gabapentin) 100 Mg Capsule, 1 CAP PO TID 08/22/24 Iron Fum & Ps Cmp/Vit C & B (Integra Capsule) 125 Mg-40 Mg-3 Mg Capsule, 1 CAP PO DAILY 10/14/23 Hydrocodone/Acetaminophen (Hydrocodon-Acetaminophn 10-325) 10 Mg-325 Mg Tablet, 1 EACH PO Q6HPRN PRN for PAIN LEVEL 1 TO 5, TAB 05/30/23 Pantoprazole Sodium (Protonix) 40 Mg Granpkt.dr, 40 MG PO DAILY, PACK 05/30/23 Ondansetron HCl (Ondansetron HCl) 4 Mg Tablet, 4 MG PO Q6HPRN PRN for nausea, TAB 05/30/23 Axitinib (Inlyta) 5 Mg Tablet, 5 MG PO BID, TAB 05/25/23 Sacubitril/Valsartan (Entresto 97 mg-103 mg Tablet) 97 Mg-103 Mg Tablet, 1 EACH PO BID, TAB 05/25/23 Metoprolol Succinate (Metoprolol Succinate) 50 Mg Tab.er.24h, 50 MG PO DAILY, TAB 10/09/22 Discontinued Reported Medications Metoprolol Succinate (Metoprolol Succinate) 25 Mg Tab.er.24h, 1 TAB PO DAILY 08/22/24 SUKH GUARDADO MD Oct 09, 2024 08:07
== END 2024-10-09 09:00 | disposition home or self-care (01) ==
LOC: EDH 16:19 → EDHIP 16:20 → 4BH 22:13
PROVIDERS: ADMIT Internal Medicine; ATTEND Internal Medicine
DX: L03.119 Cellulitis of unspecified part of limb (principal); L03.317 Cellulitis of buttock; L02.31 Cutaneous abscess of buttock; I11.0 Hypertensive heart disease with heart failure; I50.9 Heart failure, unspecified; I95.9 Hypotension, unspecified; I42.9 Cardiomyopathy, unspecified; R53.83 Other fatigue; R51.9 Headache, unspecified; R53.1 Weakness; N44.2 Benign cyst of testis; C64.9 Malignant neoplasm of unspecified kidney, except renal pelvis; Z85.118 Personal history of other malignant neoplasm of bronchus and lung; Z79.899 Other long term (current) drug therapy; Z98.890 Other specified postprocedural states
CPT/HCPCS: 96376; 96365; 96375; 99285; 82550; 80076; 84484; 80048 ×2; 83880; 82140; 85025; 87040 ×2; 83605 ×2; 81003; 36415 ×2; 71045; 74176; 93005; 96366; 96367; 85027; G0378 ×14; J7040; J2919; J0696 ×2; J2405; J2270; J2543 ×2

== ENCOUNTER 2024-11-30 14:43 | Emergency (ER) | payer OTHER, MEDICAID ==
[~2024-11-30] VITALS: Ht 175.3 cm; Wt 72.6 kg
[~2024-11-30 14:43] MED LIST changes: +CALC500T13 PO; -METO-408 PO
--- NOTE | 2024-11-30 14:56 | ERN ---
ED Note History of Present Illness Stated Complaint: ABD PAIN Chief Complaint: Abdominal Pain Time Seen by MD: 14:45 Dictation: PATIENT IS A 53-YEAR-OLD MALE COMING IN VIA EMS WITH COMPLAINTS OF RIGHT FLANK PAIN THAT DOES NOT RADIATE ABDOMINAL PAIN WITH DISTENTION THAT IS GENERALIZED. NO NAUSEA VOMITING NO CHEST PAIN NO BACK PAIN. HE IS ALSO COMPLAINING OF EDEMA TO HIS BILATERAL LOWER EXTREMITIES. STATES HE HAS A HISTORY OF RENAL CA IN HIS GETTING TREATMENT BY /ONCOLOGISTS CHEMOTHERAPY. STATES HE HAS HAD THEY EDEMA TO HIS LOWER EXTREMITIES FOR SEVERAL DAYS. NO FEVER NO CHILLS Allergies: Coded Allergies: No Known Drug Allergies (Unverified Allergy, Unknown, 04/20/21) Home Meds Active Scripts Cyclobenzaprine HCl (Flexeril) 10 Mg Tab, 10 MG PO TID for muscle sstiffness, #14 TAB 0 Refills Prov:RODRIGO LEY MANAGER BRAND 08/12/24 Acetaminophen with Codeine (Acetaminophen-Cod #3 Tablet) 300 Mg-30 Mg Tablet, 1- 2 TAB PO Q4H PRN for PAIN LEVEL 7 TO 10, #40 TAB 2 Refills Prov:CHICHO WHELAN Sr., MD 05/29/23 Reported Medications Calcium Carbonate (Tums 500 mg Chew Tab) 200 Mg Calcium (500 Mg) Tab.chew, 1 TAB PO Q4HPRN PRN for HEARTBURN, TAB.CHEW 10/08/24 Cyclobenzaprine HCl (Cyclobenzaprine HCl) 10 Mg Tablet, 10 MG PO TID PRN for MUSCLE SPASMS 08/22/24 Potassium Chloride (Potassium Chloride) 20 Meq Tab.er.prt, 1 TAB PO DAILY 08/22/24 Celecoxib (Celecoxib) 200 Mg Capsule, 1 TAB PO BID 08/22/24 Gabapentin (Gabapentin) 100 Mg Capsule, 1 CAP PO TID 08/22/24 Iron Fum & Ps Cmp/Vit C & B (Integra Capsule) 125 Mg-40 Mg-3 Mg Capsule, 1 CAP PO DAILY 10/14/23 Hydrocodone/Acetaminophen (Hydrocodon-Acetaminophn 10-325) 10 Mg-325 Mg Tablet, 1 EACH PO Q6HPRN PRN for PAIN LEVEL 1 TO 5, TAB 05/30/23 Pantoprazole Sodium (Protonix) 40 Mg , 40 MG PO DAILY, PACK 05/30/23 Ondansetron HCl (Ondansetron HCl) 4 Mg Tablet, 4 MG PO Q6HPRN PRN for nausea, TAB 05/30/23 Axitinib (Inlyta) 5 Mg Tablet, 5 MG PO BID, TAB 05/25/23 Sacubitril/Valsartan (Entresto 97 mg-103 mg Tablet) 97 Mg-103 Mg Tablet, 1 EACH PO BID, TAB 05/25/23 Metoprolol Succinate (Metoprolol Succinate) 50 Mg Tab.er.24h, 50 MG PO DAILY, TAB 10/09/22 Past Medical History Past Medical History: Cancer, Heart Disease, Hypertension Additional Past Medical Hx: HX OF BONE CA; HX OF RENAL CA, LUNG CANCER,LEFT FX RIB Surgical History: Other Surgical History Other: WRIST LEFT SX; PORTACATH Family History: HTN Social History: Smokers, Lives with family RN Note Reviewed/Agreed w/PFSH: Yes Review of System Dictation CONSTITUTIONAL: NEGATIVE EXCEPT FOR HPI HEAD/FACE: NEGATIVE EXCEPT FOR HPI EENT: NEGATIVE EXCEPT FOR HPI RESPIRATORY: NEGATIVE EXCEPT FOR HPI GASTROINTESTINAL/ABDOMINAL: NEGATIVE EXCEPT FOR HPI RIGHT FLANK PAIN WITH DIFFUSE ABDOMINAL PAIN GENITOURINARY: NEGATIVE EXCEPT FOR HPI MUSCULOSKELETAL: NEGATIVE EXCEPT FOR HPI INTEGUMENTARY: NEGATIVE EXCEPT FOR HPI NEUROLOGICAL/PSYCH: NEGATIVE EXCEPT FOR HPI HEMATOLOGIC/LYMPHATIC: NEGATIVE EXCEPT FOR HPI ALL SYSTEMS NEGATIVE, EXCEPT NOTED ABOVE. 13 POINT REVIEW OF SYSTEMS ASSESSED AND ALL NEGATIVE EXCEPT FOR ABOVE. Initial Vital Sign VS Vital Signs Date Time Temp Pulse Resp B/P (MAP) Pulse Ox O2 Delivery O2 Flow Rate FiO2 11/30/24 14:51 124 18 94/64 94 Room Air 0 11/30/24 15:27 21 11/30/24 16:03 100.8 Physical Exam Dictation VITAL SIGNS REVIEWED GENERAL APPEARANCE: ALERT, ORIENTED X 3, MODERATE ACUTE DISTRESS, WELL DEVELOPED, NOURISHED. APPEARS DECONDITIONED UNKEMPT HEAD AND FACE: NON-TRAUMATIC. EYES: PERRL, PINK CONJUNCTIVAS, EYELID NO TRAUMA, ANTERIOR CHAMBER WITH ARCUS SENILIS. EARS: PINNAS INTACT AND NO SIGNS OF TRAUMA OR ERYTHEMA EAR CANALS CLEAR AND NO DISCHARGE TM NO ERYTHEMA NOSE: NO DISCHARGE, NO BLEEDING. OROPHARYNX: MOUTH NORMAL, TONGUE PINK, PHARYNX CLEAR,NO ERYTHEMA, TONSILS NO EXUDATES, NO ABSCESSES NOTED, MUCOUS MEMBRANE MOIST NECK: SUPPLE, NON-TENDER, NO THYROMEGALY, NO MASSES, NO JVD, NO BRUITS BREAST:DEFERRED CHEST:NO TENDERNESS, NO CREPITUS, NO PARADOXICAL MOVEMENT, NO RETRACTIONS LUNGS:CLEAR, WELL-VENTILATED, SYMMETRIC, NO RALES, NO WHEEZING, NO RHONCHI, NO STRIDOR, GOOD BREATH SOUNDS BILATERALLY HEART: REGULAR RATE, REGULAR RHYTHM, NO MURMUR, NO GALLOPS VASCULAR: NO PERIPHERAL EDEMA, ABDOMEN: SOFT, POSITIVE BOWEL SOUNDS, NONDISTENDED, NO GUARDING, RIGHT FLANK PAIN, NEGATIVE CVAT. MILD ABDOMINAL DISTENTION NO FOCAL PAIN. RECTAL: DEFERRED GENITAL: DEFERRED NEUROLOGICAL: NORMAL SPEECH, MOTOR FUNCTION INTACT, SENSORY FUNCTION INTACT MUSCULOSKELETAL: NECK NONTENDER, FULL RANGE OF MOTION, BACK NONTENDER, FULL RANGE OF MOTION, EXTREMITIES: NONTENDER, FULL RANGE OF MOTION SKIN: COLOR PINK, DRY, NO TURGOR, NO RASH, NO LACERATIONS, NO ABRASIONS, NO CONTUSIONS. LYMPHATIC: DEFERRED Results (Laboratory/Radiology) Laboratory/Radiology Laboratory Tests Test 11/30/24 15:45 11/30/24 16:57 11/30/24 17:23 White Blood Count 18.5 K/uL (4.8-10.8) H Red Blood Count 2.76 MIL/uL (4.50-6.20) L Hemoglobin 7.2 g/dL (14.0-18.0) L Hematocrit 25.2 % (42-54) L Mean Corpuscular Volume 91.3 fL (79-99) Mean Corpuscular Hemoglobin 26.1 pg (27.0-33.0) L Mean Corpuscular Hemoglobin Concent 28.6 g/dL (32.0-36.0) L Red Cell Distribution Width 21.4 % (11.0-15.5) H Platelet Count 273 K/uL (130-400) Mean Platelet Volume 10.9 fL (7.5-10.5) H Immature Granulocyte % (Auto) 1.5 % (0-1) H Neutrophils (%) (Auto) 92.5 % (40.0-77.0) H Lymphocytes (%) (Auto) 3.8 % (21.0-51.0) L Monocytes (%) (Auto) 1.9 % (3.0-13.0) L Eosinophils (%) (Auto) 0.2 % (0.0-8.0) Basophils (%) (Auto) 0.1 % (0.0-5.0) Neutrophils # (Auto) 17.1 K/uL (1.8-7.7) H Lymphocytes # (Auto) 0.7 K/uL (1.0-4.8) L Monocytes # (Auto) 0.4 K/uL (0.1-1.0) Eosinophils # (Auto) 0.04 K/uL (0.00-0.70) Basophils # (Auto) 0.02 K/uL (0.00-0.20) Absolute Immature Granulocyte (auto 0.27 K/uL (0-1) Nucleated Red Blood Cells 0.1 % (0.0-0.19) White Cell Morphology Comment See comments Red Blood Cell Morphology See comments Sodium Level 136 mmol/L (136-145) Potassium Level 3.9 mmol/L (3.5-5.1) Chloride Level 101 mmol/L (101-111) Carbon Dioxide Level 31 mmol/L (21-32) Blood Urea Nitrogen 11 mg/dL (7-18) Creatinine 0.5 mg/dL (0.5-1.3) Glomerular Filtration Rate Calc 123 mL/min (>90) Random Glucose 82 mg/dL (70-105) Total Calcium 10.5 mg/dL (8.5-10.1) H Total Bilirubin 1.0 mg/dL (0.2-1.0) Aspartate Amino Transf (AST/SGOT) 10 U/L (10-37) Alanine Aminotransferase (ALT/SGPT) 15 U/L (12-78) Alkaline Phosphatase 159 U/L (50-136) H Troponin I High Sensitivity 25 ng/L (4-75) B-Type Natriuretic Peptide 297 pg/mL (0-100) H Total Protein 6.2 g/dL (6.0-8.3) Albumin 1.8 g/dL (3.5-5.0) L Lipase 9 U/L (16-77) L Lactic Acid Level 2.3 mmol/L (0.8-2.5) Urine Color YELLOW (YELLOW) Urine Appearance CLEAR (CLEAR) Urine pH 7.0 (5.0-8.0) Urine Specific [place] 1.018 (1.001-1.031) Urine Protein 50 mg/dL (NEGATIVE) H Urine Glucose (UA) NEGATIVE mg/dL (NEGATIVE) Urine Ketones NEGATIVE mg/dL (NEGATIVE) Urine Occult Blood NEGATIVE (NEGATIVE) Urine Nitrate NEGATIVE (NEGATIVE) Urine Bilirubin NEGATIVE mg/dL (NEGATIVE) Urine Urobilinogen 0.2 mg/dL (0.2-1.0) Urine Leukocyte Esterase NEGATIVE Regino/uL Urine RBC None /HPF (0-1) Urine WBC 2-5 /HPF (0-1) H Urine Bacteria None /HPF (None Seen) ULTRASOUND OF THE RIGHT RENAL DEMONSTRATES RENAL MASS. THIS IS CONSISTENT WITH PATIENT'S METASTATIC CANCER RENAL CELL CARCINOMA Labs Reviewed?: Yes EKG Comment: ATRIAL PACED RHYTHM/HEART RATE 88/RIGHT BUNDLE BRANCH BLOCK ED Course ED Course Orders Procedure Category Date Status Time B-Type Natriuretic LAB 11/30/24 Complete Peptide 14:54 Cbc With Differential LAB 11/30/24 Complete 14:54 Comprehensive LAB 11/30/24 Complete Metabolic Panel 14:54 Troponin I High LAB 11/30/24 Complete Sensitivity 14:54 Urinalysis Profile LAB 11/30/24 Complete 14:54 12 Lead Ekg Tracing- EKG 11/30/24 Complete Technical 14:54 Morphine 2mg Syg PHA 11/30/24 Complete (Morphine 2mg Syg) 15:00 Ondansetron 4mg Inj PHA 11/30/24 Complete (Zofran 4mg Inj) 15:00 Lipase LAB 11/30/24 Complete 14:54 Blood Cult MIGDALIA 11/30/24 In Process 16:37 Lactic Acid LAB 11/30/24 Complete 16:37 0.9%Nacl 1000ml (Ns PHA 11/30/24 Complete 1000ml) 17:00 Nurse Driven Gaviria HARPREET 11/30/24 In Process Removal Pro 17:08 0.9%Nacl 1000ml (Ns PHA 11/30/24 In Process 1000ml) 17:30 Ceftriaxone 2gm Vial PHA 11/30/24 Complete (Rocephin 2gm Inj) 17:30 Us Renal Sonogram US 11/30/24 Taken 17:51 Morphine 4mg Syg PHA 11/30/24 In Process (Morphine 4mg Syg) 19:30 Current Medications Medications (Trade) Dose Ordered Sig/Helen Route PRN Reason Start Time Stop Time Status Last Admin Dose Admin Ceftriaxone Sodium (Rocephin 2gm Inj) 2 gm ONCE ONCE IVPB 11/30/24 17:30 11/30/24 17:31 DC 11/30/24 17:28 Morphine Sulfate (morPHINE 2MG SYG) 2 mg ONCE ONCE IVP 11/30/24 15:00 11/30/24 15:10 DC 11/30/24 15:38 Morphine Sulfate (morPHINE 4MG SYG) 4 mg ONCE ONCE IVP 11/30/24 19:30 11/30/24 19:31 Ondansetron HCl (zoFRAN 4MG INJ) 4 mg ONCE ONCE IVP 11/30/24 15:00 11/30/24 15:10 DC 11/30/24 15:37 Sodium Chloride 1,000 ml @ 0 mls/hr ONCE ONCE IV 11/30/24 17:00 11/30/24 17:01 DC 11/30/24 16:45 Sodium Chloride 2,178 ml @ 726 mls/hr ONCE ONCE IV 11/30/24 17:30 11/30/24 20:29 11/30/24 17:18 Vital Signs Date Time Temp Pulse Resp B/P (MAP) Pulse Ox O2 Delivery O2 Flow Rate FiO2 11/30/24 18:17 102 20 106/66 99 Nasal Cannula* 3 32 11/30/24 18:00 106 20 92/52 99 Nasal Cannula* 3 32 11/30/24 17:17 114 24 99/57 99 Nasal Cannula* 3 32 11/30/24 17:03 100.9 109 24 92/41 99 Nasal Cannula* 3 32 11/30/24 16:30 113 24 90/42 99 Nasal Cannula* 3 32 11/30/24 16:03 100.8 111 24 99/57 99 Nasal Cannula* 3 32 11/30/24 15:27 111 24 98/60 99 Room Air* 0 21 11/30/24 14:51 124 18 94/64 94 Room Air 0 1914/PATIENT IS AWARE HE WILL BE ADMITTED TO THE HOSPITAL FOR INTRACTABLE CANCER PAIN, CHRONIC ANEMIA CHRONIC, 1914/PATIENT IS HEMODYNAMICALLY STABLE LAST BLOOD PRESSURE 106/66 THIS IS AFTER 30 PER KILOS FLUIDS BROAD-SPECTRUM ANTIBIOTICS. 182, SPOKE WITH REVIEWED LABS AND INTERVENTIONS FOR PATIENT. HE SAID THERE WAS NO ADMISSION BALL CRITERIA AT THIS TIME. HE STATES THIS IS A CHRONIC ISSUE THAT IS REGARDING HIS PAIN. HE SAID TO DISCHARGE PATIENT HOME AND HAVE HIM FOLLOW UP WITH THE HIM IN HIS OFFICE IN THE NEXT FEW DAYS. ADDITIONALLY HE HAS ADVICE PATIENT THAT HE NEEDS PLACEMENT IN A HOSPICE CARE CENTER OR [facility]. WE WILL DISCHARGE PATIENT HOME WITH TYLENOL WITH CODEINE HAVE HIM FOLLOW UP WITH HIS PRIMARY CARE DOCTOR. 1930/spoke with patient at length regarding my discussion with his primary care doctor in our clinical findings. He is aware he will be discharged home with Tylenol with codeine for pain have him follow up with for hospice placement or fdc placement. All questions answered. HEART Score Response (Comments) Value EKG: Repolarization changes 1 Age: 45-65yrs (+1) 1 Risk Factors: 3+ risk factors (+2) 2 Initial Troponin: Normal limit (0) 0 Total 4 Medical Decision Making MDM MDM: DIFFERENTIAL DIAGNOSIS: PYELONEPHRITIS/UTI/CANCER-RELATED PAIN/INTRACTABLE PAIN/SEPSIS/ELECTROLYTE IMBALANCE/DEHYDRATION RATIONALE: TESTS CONSIDERED AND ORDERED SECONDARY TO SHARED DECISION MAKING INCLUDE: LABS, ECG AND RADIOLOGY PREVIOUS OUTSIDE RECORDS REVIEWED: OLD ER VISITS. RISK OF COMPLICATION AND/OR MORBIDITY OR MORTALITY OF PATIENT MANAGEMENT: NONE MEDICATIONS-PER MEDICATION RECONCILIATION NEED FOR HOSPITALIZATION: PATIENT DOES MEET CRITERIA FOR HOSPITALIZATION. PATIENT WILL NEED ADMITTED FOR PAIN MANAGEMENT, CONTINUED FLUID RESUSCITATION MONITORING LACTATE LEVELS NEED FOR EMERGENCY MAJOR/MINOR SURGERY: NO THERE ARE NO SOCIAL CONCERNS WITH THIS PATIENT. PRESCRIPTION DRUG MANAGEMENT PRESCRIPTIONS WILL INCLUDE SYMPTOMATIC CARE PATIENT'S PRIOR EXTERNAL MEDICAL RECORDS FROM OTHER ER VISITS WERE REVIEWED BY ME INDICATED. PRIOR TESTING AND RESULTS FROM PREVIOUS VISITS WERE REVIEWED. PRIOR TESTS WERE TAKEN INTO ACCOUNT WITH MEDICAL DECISION MAKING AND RESOURCE UTILIZATION, INDEPENDENT HISTORIAN/HISTORIANS WERE USED TO OBTAIN COMPLETE MEDICAL HISTORY. I INDEPENDENTLY INTERPRETED THE TEST THAT WERE PERFORMED, RESULTS WERE REVIEWED BY ME AND CONSIDERED FINDINGS ON RADIOLOGY IF ORDERED. MEDICAL MANAGEMENT AND EXAMINATION INTERPRETATION DISCUSSIONS WERE HAD BY ME WITH OTHER QUALIFIED HEALTHCARE PROFESSIONALS INDICATED FOR THE PATIENT'S CARE. DX & DISP Disposition: Discharge Departure Impression: Primary Impression: Metastatic renal cell carcinoma Additional Impressions: Musculoskeletal pain, Metastatic cancer, Chronic a nemia, Hypoalbuminemia, Intractable pain, Lactic acidosis, Pacemaker, Pacemaker ECG pattern Condition: Stable Scripts Acetaminophen with Codeine (Acetaminophen-Cod #3 Tablet) 300 Mg-30 Mg Tablet 1 TAB PO Q4H PRN for MODERATE TO SEVERE, #15 TAB 0 Refills Prov: JEREMY WILLIAMSON BAG LINER 11/30/24 Referrals: SUKH GUARDADO MD (PCP) Time of Disposition: 19:18 I have reviewed the case, and I agree with, Diagnosis and Plan JEREMY WILLIAMSON NP Nov 30, 2024 14:56
--- NOTE | 2024-11-30 15:10 | EKG ---
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
[2024-11-30 16:17] LABS: IMMATURE GRANULOCYTE ABSOLUTE 0.27 K/uL (0-1); NUCLEATED RED BLOOD CELLS 0.1 % (0.0-0.19); PLATELET COUNT (AUTO) 273 K/uL (130-400); RED BLOOD CELL COUNT(AUTO) 2.76 MIL/uL (4.50-6.20); RED CELL DISTRIBUTION WIDTH 21.4 % (11.0-15.5); WHITE BLOOD COUNT (AUTO) 18.5 K/uL (4.8-10.8)
[2024-11-30 16:26] LABS: CREATININE 0.5 mg/dL (0.5-1.3); GLOMERULAR FILTR. RATE CALC 123.0 mL/min (>90); GLUCOSE,RANDOM 82.0 mg/dL (70-105); SODIUM SERUM 136.0 mmol/L (136-145); UREA NITROGEN, BLOOD 11.0 mg/dL (7-18)
[2024-11-30 16:30] LABS: ASPARTATE AMINOTRANSFERASE 10.0 U/L (10-37); TOTAL PROTEIN, SERUM 6.2 g/dL (6.0-8.3)
[2024-11-30] MEDS: 0.9%NACL 1000ML 1,000 ML IV ONE (16:45)
[2024-11-30] MEDS: 0.9%NACL 1000ML 2,178 ML IV ONE (17:18)
[2024-11-30 17:33] LABS: APPEARANCE,URINE CLEAR (CLEAR); GLUCOSE, URINE (UA) NEGATIVE (NEGATIVE); LEUKOCYTE ESTERASE ,URINE NEGATIVE Leu/uL (NEGATIVE); NITRATE,URINE NEGATIVE (NEGATIVE); OCCULT BLOOD,URINE NEGATIVE (NEGATIVE)
--- NOTE | 2024-11-30 17:39 | NUR ---
ORTHOSTATIC VS: SUPINE- BP 110/63 ; HR 81 ; SPO2 96 RA ; RR 18 SITTING- BP 110/70 ; HR 84 ; SPO2 97 RA ; RR 17 STANDING- BP 110/62 ; HR 89 ; SPO2 95 RA ; RR 20
[2024-11-30 17:40] LABS: ADD UA MICROSCOPIC YES
[2024-11-30] MEDS ORDERED: ACET-2079 PO (19:29)
[2024-11-30 19:30] VITALS: BP 102/55; PULSE 92; RESP 20; TEMP 99.2; O2SAT 97
--- NOTE | 2024-11-30 19:30 | HMCIMG ---
EXAMINATION: Ultrasound Renal Sonogram CLINICAL HISTORY: Patient presents with right flank pain. COMPARISON: Compared to prior CT dated October 08, 2024. TECHNIQUE: Dickson-scale and Doppler sonographic images of both kidneys were obtained in multiple planes. FINDINGS: RIGHT KIDNEY: The right kidney measures 18.4 ??? 10.4 ??? 11.8 cm. A heterogeneous mass is seen within the right kidney measuring approximately 16 ??? 14 ??? 14.7 cm. LEFT KIDNEY: The left kidney measures 12.4 ??? 4.8 ??? 5.7 cm. No focal renal mass or hydronephrosis. URINARY BLADDER: The urinary bladder is empty with Gaviria catheter in place. IMPRESSION: Redemonstrated large right renal mass measuring approximately 16 ??? 14 ??? 14.7 cm. This is presumed to reflect malignancy, recommend Histopathologic correlation. /[place]
== END 2024-11-30 20:40 | disposition home or self-care (01) ==
LOC: EDH 14:43
DX: C79.00 Secondary malignant neoplasm of unspecified kidney and renal pelvis (principal); D53.9 Nutritional anemia, unspecified; E88.09 Other disorders of plasma-protein metabolism, not elsewhere classified; E87.20 Acidosis, unspecified; I10 Essential (primary) hypertension; Z95.0 Presence of cardiac pacemaker; Z85.118 Personal history of other malignant neoplasm of bronchus and lung; Z82.49 Family history of ischemic heart disease and other diseases of the circulatory system; Z79.899 Other long term (current) drug therapy
CPT/HCPCS: 99285; 96365; 96361; 76770; 96375; 84484; 80053; 83880; 83690; 85025; 87040 ×2; 83605; 81001; 36415; 96376; 93005; J2270 ×2; J0696; J2405